=== PATIENT | female | born 1970 | race Caucasian/White ===

== ENCOUNTER 2016-04-04 11:24 | Emergency (ER) | payer BC, OTHER ==
[2016-04-04] MEDS ORDERED: diphenhydrAMINE 50 MG/ML 1 ML VIAL IVP STA (11:34)
[2016-04-04] MEDS ORDERED: ONDANSETRON 4 MG/2 ML VIAL IVP STA (11:34)
--- NOTE | 2016-04-04 11:41 | ED ---
Nausea/Vomiting/Diarrhea HPI - General Chief complaint: Nausea/Vomiting/Diarrhea Stated complaint: vomiting Time Seen by Provider: 04/04/16 11:33 Source: patient, RN notes reviewed Mode of arrival: wheelchair Limitations: no limitations - History of Present Illness Initial comments: 45-year-old female presents emergency Department with chief complaint nausea vomiting diarrhea abdominal pain. Patient states that she has chronic abdominal issues in which she's had multiple scopes diagnosed with gastritis hiatal hernia. Patient states that she started about 5 hours ago with nausea vomiting. She states she's been vomiting so much that she has abdominal pain. Patient states she takes Phenergan and Compazine only when she has issues. She does take Prilosec for gastritis. Patient states that she's never seen a perioperative manager she states that her primary care physician told her that they can handle this. Patient denies dysuria hematuria. Patient denies any chest pain or shortness breath. - Related Data Home Medications Medication Instructions Recorded Confirmed ARIPiprazole [Abilify] 15 mg PO HS 01/20/16 04/04/16 Citalopram Hydrobromide [CeleXA] 40 mg PO HS 01/20/16 04/04/16 Omeprazole [PriLOSEC] 20 mg PO BID 01/20/16 04/04/16 Allergies Allergy/AdvReac Type Severity Reaction Status Date / Time No Known Allergies Allergy Verified 04/04/16 13:01 Review of Systems ROS Statement: Those systems with pertinent positive or pertinent negative responses have been documented in the HPI. ROS Other: All systems not noted in ROS Statement are negative. Past Medical History Additional Past Medical History / Comment(s): GASTRITIS. PT IS ON [facility] FOR THIS. LOW IRON History of Any Multi-Drug Resistant Organisms: None Reported Past Surgical History: No Surgical Hx Reported Past Psychological History: Anxiety, Bipolar Smoking Status: Never smoker Past Alcohol Use History: Rare Past Drug Use History: Marijuana General Exam Limitations: no limitations General appearance: alert, in no apparent distress Head exam: Present: atraumatic, normocephalic, normal inspection Neck exam: Present: normal inspection, full ROM. Absent: tenderness, meningismus, lymphadenopathy Respiratory exam: Present: normal lung sounds bilaterally. Absent: respiratory distress, wheezes, rales, rhonchi, stridor Cardiovascular Exam: Present: regular rate, normal rhythm, normal heart sounds. Absent: systolic murmur, diastolic murmur, rubs, gallop, clicks GI/Abdominal exam: Present: soft, tenderness (Diffuse [id number]), normal bowel sounds. Absent: distended, guarding, rebound, rigid Back exam: Absent: CVA tenderness (R), CVA tenderness (L) Skin exam: Present: warm, dry, intact, normal color. Absent: rash Course Vital Signs 04/04/16 11:29 Pulse Rate 87 Respiratory 16 Rate Blood Pressure 123/78 O2 Sat by Pulse 99 Oximetry - Reevaluation(s) Reevaluation #1: 04/04/16 14:28 I I did personally go in the room multiple times and told patient to stop forcing herself to vomit. Patient's sister in the room states that she has a history of bulimia and states that she, make herself vomit. Patient vomiting has subsided other than when she forces herself to vomit. We are pending IV from [facility] [employer] as multiple attempts have been trying by ER staff. Patient was updated on lab results and that she needs to provide a urine. Reevaluation #2: 04/04/16 16:08 Patient was reevaluated. Patient is resting comfortably and sleeping in the room has had no episodes of vomiting and almost 2 hours. Patient will be discharged. Medical Decision Making - Medical Decision Making 45-year-old female presented emergency from her nausea vomiting. Patient has chronic problems with this. Patient was forcefully making her so sick emergency department. Patient's nausea and vomiting isn't controlled this time. She has Compazine and Phenergan at home. I did offer Zofran though she declined. Patient will be discharged. Patient's abdomen was reevaluated which is soft and nontender. - Lab Data Result diagrams: 04/04/16 12:10 04/04/16 12:10 Lab Results 04/04/16 04/04/16 04/04/16 Range/Units 12:10 12:10 15:47 WBC 18.4 H (3.8-10.6) k/uL RBC 4.58 (3.80-5.40) m/uL Hgb 13.3 (11.4-16.0) gm/dL Hct 42.2 (34.0-46.0) % MCV 92.2 (80.0-100.0) fL MCH 29.1 (25.0-35.0) pg MCHC 31.6 (31.0-37.0) g/dL RDW 14.6 (11.5-15.5) % Plt Count 287 (150-450) k/uL Neutrophils % 89 % Lymphocytes % 5 % Monocytes % 4 % Eosinophils % 1 % Basophils % 0 % Neutrophils # 16.4 H (1.3-7.7) k/uL Lymphocytes # 0.9 L (1.0-4.8) k/uL Monocytes # 0.8 (0-1.0) k/uL Eosinophils # 0.1 (0-0.7) k/uL Basophils # 0.1 (0-0.2) k/uL Sodium 142 (137-145) mmol/L Potassium 3.8 (3.5-5.1) mmol/L Chloride 107 (98-107) mmol/L Carbon Dioxide 19 L (22-30) mmol/L Anion Gap 16 mmol/L BUN 13 (7-17) mg/dL Creatinine 0.59 (0.52-1.04) mg/dL Est GFR (MDRD) Af Amer >60 (>60 ml/min/1.73 sqM) Est GFR (MDRD) Non-Af >60 (>60 ml/min/1.73 sqM) Glucose 190 H (74-99) mg/dL Calcium 9.8 (8.4-10.2) mg/dL Total Bilirubin 0.5 (0.2-1.3) mg/dL AST 24 (14-36) U/L ALT 33 (9-52) U/L Alkaline Phosphatase 48 (38-126) U/L Total Protein 8.0 (6.3-8.2) g/dL Albumin 4.9 (3.5-5.0) g/dL Amylase 62 (30-110) U/L Lipase 165 (23-300) U/L Urine Color Yellow Urine Appearance Cloudy H (Clear) Urine pH 5.5 (5.0-8.0) Ur Specific [place] 1.023 (1.001-1.035) Urine Protein 1+ H (Negative) Urine Glucose (UA) 1+ H (Negative) Urine Ketones Negative (Negative) Urine Blood Large H (Negative) Urine Nitrate Negative (Negative) Urine Bilirubin Negative (Negative) Urine Urobilinogen <2.0 (<2.0) mg/dL Ur Leukocyte Esterase Negative (Negative) Urine RBC 28 H (0-5) /hpf Urine WBC 7 H (0-5) /hpf Ur Squamous Epith Cells 1 (0-4) /hpf Amorphous Sediment Rare H (None) /hpf Hyaline Casts 5 H (0-2) /lpf Urine Mucus Moderate H (None) /hpf Urine Opiates Screen Not Detected (NotDetected) Ur Oxycodone Screen Not Detected (NotDetected) Urine Methadone Screen Not Detected (NotDetected) Ur Propoxyphene Screen Not Detected (NotDetected) Ur Barbiturates Screen Not Detected (NotDetected) U Tricyclic Antidepress Not Detected (NotDetected) Ur Phencyclidine Scrn Not Detected (NotDetected) Ur Amphetamines Screen Not Detected (NotDetected) U Methamphetamines Scrn Not Detected (NotDetected) U Benzodiazepines Scrn Detected H (NotDetected) Urine Cocaine Screen Not Detected (NotDetected) U Marijuana (THC) Screen Detected H (NotDetected) Disposition Clinical Impression: Nausea & vomiting Disposition: HOME SELF-CARE Condition: Stable Instructions: Acute Nausea and Vomiting (ED) Additional Instructions: Please return to the Emergency Department if symptoms worsen or any other concerns. Time of Disposition: 16:09
[2016-04-04] MEDS ORDERED: PROMETHAZINE INJ 25 MG in SODIUM CHLORIDE 0.9% 50 ML IVPB STA (11:45)
[2016-04-04] MEDS ORDERED: ONDANSETRON 4 MG/2 ML VIAL IM STA (12:23)
[2016-04-04] MEDS ORDERED: diphenhydrAMINE 50 MG/ML 1 ML VIAL IM STA (12:23)
[2016-04-04 12:27] LABS: Basophils # (A) 0.1 k/uL (0-0.2); Basophils % (A) 0 %; CH 29.3; CHCM 31.8; Eosinophils # (A) 0.1 k/uL (0-0.7); Eosinophils % (A) 1 %; HCT 42.2 % (34.0-46.0); HDW 2.46; HGB 13.3 gm/dL (11.4-16.0); Luc # (Auto) 0.13; Luc % (Auto) 1; Lymphocytes # (A) 0.9 k/uL (1.0-4.8); Lymphocytes % (A) 5 %; MCH 29.1 pg (25.0-35.0); MCHC 31.6 g/dL (31.0-37.0); MCV 92.2 fL (80.0-100.0); Mean Platelet Volume 7.5; Monocytes # (A) 0.8 k/uL (0-1.0); Monocytes % (A) 4 %; Neutrophils # (A) 16.4 k/uL (1.3-7.7); Neutrophils % (A) 89 %; RBC 4.58 m/uL (3.80-5.40); RDW 14.6 % (11.5-15.5); WBC 18.4 k/uL (3.8-10.6); WBC (Perox) 19.92
[2016-04-04 12:39] LABS: ALT 33 U/L (9-52); AST 24 U/L (14-36); Alkaline Phosphatase 48 U/L (38-126); Amylase 62 U/L (30-110); Anion Gap 16 mmol/L; Blood Urea Nitrogen 13 mg/dL (7-17); Calcium 9.8 mg/dL (8.4-10.2); Carbon Dioxide 19 mmol/L (22-30); Chloride 107 mmol/L (98-107); Glucose 190 mg/dL (74-99); Non-African American GFR(MDRD) >60 (>60 ml/min/1.73 sqM); Potassium 3.8 mmol/L (3.5-5.1); Sodium 142 mmol/L (137-145); Total Bilirubin 0.5 mg/dL (0.2-1.3)
[2016-04-04] MEDS ORDERED: PROMETHAZINE INJ 25 MG/ML 1 ML VIAL IM STA (14:09)
[2016-04-04] MEDS ORDERED: LORazepam 2 MG/ML SYRINGE IM STA (14:09)
[2016-04-04] MEDS: SODIUM CHLORIDE 0.9% 1,000 ML IV STA ×2 (14:11→14:47)
--- NOTE | 2016-04-04 15:34 | XR ---
EXAMINATION TYPE: XR KUB DATE OF EXAM: 04/04/2016 3:22 PM COMPARISON: 01/21/2016 HISTORY: Nausea and vomiting TECHNIQUE: 2 views FINDINGS: Bowel gas pattern is normal. There is no sign of intestinal obstruction or pneumoperitoneum . Fecal pattern is normal. There are a few phleboliths in the pelvis. There are no pathologic calcifi cations over the kidneys. Lung bases are clear. IMPRESSION: Nonacute abdomen. No change.
[2016-04-04 15:53] LABS: Amorphous Sediment,Urine Rare /hpf; Appearance,Urine Cloudy (Clear); Bilirubin,Urine Negative (Negative); Glucose,Urine (UA) 1+ (Negative); Ketones,Urine Negative (Negative); Leukocyte Esterase,Urine Negative (Negative); Mucus,Urine Moderate /hpf; Nitrite,Urine Negative (Negative); PH, Urine 5.5 (5.0-8.0); Particle Count 6976; Protein,Urine 1+ (Negative); RBC,Urine 28 /hpf (0-5); Specific Gravity,Urine 1.023 (1.001-1.035); Squamous Epithelial Cell,Urine 1 /hpf (0-4); UA Billing (MACRO vs. MICRO) MICRO; Urobilinogen,Urine <2.0 mg/dL (<2.0); WBC,Urine 7 /hpf (0-5)
[2016-04-04 16:18] VITALS: BP 129/65; PULSE 98; RESP 18; TEMP 98.5
== END 2016-04-04 16:26 | disposition home or self-care (01) ==
LOC: EC 11:24
DX: R11.2 Nausea with vomiting, unspecified (principal); F31.9 Bipolar disorder, unspecified; F41.9 Anxiety disorder, unspecified; Z79.899 Other long term (current) drug therapy; Z87.19 Personal history of other diseases of the digestive system; Z87.898 Personal history of other specified conditions
CPT/HCPCS: 36415; 80053; 82150; 83690; 85025; 81001; 80306; 74000; 99284; 96360; 96361; 96372 ×4; J2060; J1200; J2550; J2405

== ENCOUNTER 2016-04-06 11:52 | Emergency (ER) | payer BC ==
[2016-04-06 12:18] VITALS: RESP 18
[2016-04-06] MEDS ORDERED: ONDANSETRON 4 MG/2 ML VIAL IVP STA ×2 (13:46→14:56)
[2016-04-06] MEDS ORDERED: SODIUM CHLORIDE 0.9% 1,000 ML IV STA ×2 (13:46)
--- NOTE | 2016-04-06 13:48 | ED ---
General Adult HPI - General Chief complaint: Nausea/Vomiting/Diarrhea Stated complaint: NVD Time Seen by Provider: 04/06/16 13:40 Source: patient, RN notes reviewed, old records reviewed Mode of arrival: EMS Limitations: no limitations - History of Present Illness Initial comments: Patient 45-year-old female who presents emergency room today by EMS, with chief complaint of increased nausea vomiting diarrhea over the last 3 days. Patient does admit that she was seen here in the emergency room for this 2 days ago. She does admit she was discharged home. She states she still having symptoms nausea vomiting. States diarrhea is improved. Does admit that her sister has similar symptoms at home now. Patient admits to some cramping in her abdomen hurts worse with vomiting. She denies any other complaints. Does admit that she is feeling better after medications given by EMS. States she was given morphine along with Zofran. Patient denies any other complaints or symptoms currently. Patient denies any recent fever, chills, shortness of breath, chest pain, back pain, numbness or tingling, dysuria or hematuria, constipation, headaches or visual changes, or any other complaints. - Related Data Home Medications Medication Instructions Recorded Confirmed ARIPiprazole [Abilify] 15 mg PO HS 01/20/16 04/06/16 Citalopram Hydrobromide [CeleXA] 40 mg PO HS 01/20/16 04/06/16 Omeprazole [PriLOSEC] 20 mg PO BID 01/20/16 04/06/16 Previous Rx's Medication Instructions Recorded Ondansetron Odt [Zofran ODT] 4 mg PO Q8HR PRN #15 tab 04/06/16 Allergies Allergy/AdvReac Type Severity Reaction Status Date / Time No Known Allergies Allergy Verified 04/06/16 14:01 Review of Systems ROS Statement: Those systems with pertinent positive or pertinent negative responses have been documented in the HPI. ROS Other: All systems not noted in ROS Statement are negative. Past Medical History Additional Past Medical History / Comment(s): GASTRITIS. PT IS ON [facility] FOR THIS. LOW IRON History of Any Multi-Drug Resistant Organisms: None Reported Past Surgical History: No Surgical Hx Reported Past Psychological History: Anxiety, Bipolar Smoking Status: Never smoker Past Alcohol Use History: Rare Past Drug Use History: Marijuana General Exam - General Exam Comments Initial Comments: General: The patient is awake and alert, in no distress, and does not appear acutely ill. Eye: Pupils are equal, round and reactive to light, extra-ocular movements are intact. No nystagmus. There is normal conjunctiva bilaterally. No signs of icterus. Ears, nose, mouth and throat: There are moist mucous membranes and no oral lesions. Neck: The neck is supple, there is no tenderness or JVD. Cardiovascular: There is a regular rate and rhythm. No murmur, rub or gallop is appreciated. Respiratory: Lungs are clear to auscultation, respirations are non-labored, breath sounds are equal. No wheezes, stridor, rales, or rhonchi. Gastrointestinal: Soft, non-distended, non-tender abdomen without masses or organomegaly noted. There is no rebound or guarding present. No CVA tenderness. Bowel sounds are unremarkable. Musculoskeletal: Normal ROM, no tenderness. Strength 5/5. Sensation intact. Pulses equal bilaterally 2+. Neurological: A&O x 3. CN II-XII intact, There are no obvious motor or sensory deficits. Coordination appears grossly intact. Speech is normal. Skin: Skin is warm and dry and no rashes or lesions are noted. Psychiatric: Cooperative, appropriate mood & affect, normal judgment. Limitations: no limitations Course Vital Signs 04/06/16 12:15 Temperature 97.9 F Pulse Rate 66 Respiratory 18 Rate Blood Pressure 113/57 O2 Sat by Pulse 96 Oximetry - Reevaluation(s) Reevaluation #1: 04/06/16 14:34 Patient reexamined at this time shows no signs of distress. She does admit that she is feeling better after morphine and Zofran were given to her IM by EMS. Patient does admit to a history of drug use. Admits that she was here few days ago. Did have labs obtained at that time. Had an 18,000 white count. Admits to symptoms of nausea vomiting diarrhea. Admits that her sister has some symptoms at home. Patient admits that she does have labs done she states that she was just here because of the nausea and vomiting. Has declined labs. She is difficult lab draw. They were able to obtain an IV access. Patient given IV fluids. Patient's also declined x-ray. States she is feeling better after fluids. symptoms improved here. Advised return if symptoms increase or worsen or for any other concerns. She states understanding and is in agreement. Medical Decision Making - Medical Decision Making Patient reexamined at this time shows no signs of distress. Does not that she is feeling better here in the emergency room. Her abdomen is soft nontender. Patient was seen here in the emergency room recently and labs were reviewed. Patient today is difficult lab draw and declined labs after several attempts. Declined x-ray stating she does had this recently. Doesn't that she's feeling better nausea medicine here. Patient's urinalysis reviewed to show large amount of blood. Was discussed with patient. She states she's not menstrual cycle. Advised patient to follow up with the family doctor have repeat urinalysis. Advised patient return here to the emergency room if any symptoms increase or worsen. Will be discharged home with nausea medication for her symptoms. - Lab Data Lab Results 04/06/16 04/06/16 Range/Units 14:21 14:21 Urine Color Yellow Urine Appearance Cloudy H (Clear) Urine pH 6.0 (5.0-8.0) Ur Specific [place] 1.026 (1.001-1.035) Urine Protein 1+ H (Negative) Urine Glucose (UA) Negative (Negative) Urine Ketones 2+ H (Negative) Urine Blood Large H (Negative) Urine Nitrate Negative (Negative) Urine Bilirubin Negative (Negative) Urine Urobilinogen <2.0 (<2.0) mg/dL Ur Leukocyte Esterase Negative (Negative) Urine RBC >182 H (0-5) /hpf Ur Squamous Epith Cells 12 H (0-4) /hpf Urine Bacteria Rare H (None) /hpf Hyaline Casts 1 (0-2) /lpf Urine Mucus Moderate H (None) /hpf Urine HCG, Qual Not Detected (Not Detectd) Disposition Clinical Impression: Nausea vomiting and diarrhea Disposition: HOME SELF-CARE Instructions: Acute Nausea and Vomiting (ED) Additional Instructions: Please use medication as discussed. Please follow-up with family doctor in the next 2 days of symptoms have not improved. Please return to emergency room if the symptoms increase or worsen or for any other concerns. Prescriptions: Ondansetron Odt [Zofran ODT] 4 mg PO Q8HR PRN #15 tab PRN Reason: Nausea Referrals: None,Stated [Primary Care Provider] - 1-2 days Mina Forrest MD [REFERRING] - 1-2 days Sisi Yanez MD [STAFF PHYSICIAN] - 1-2 days
[2016-04-06 14:44] LABS: Appearance,Urine Cloudy (Clear); Bacteria,Urine Rare /hpf; Bilirubin,Urine Negative (Negative); Glucose,Urine (UA) Negative (Negative); Ketones,Urine 2+ (Negative); Leukocyte Esterase,Urine Negative (Negative); Mucus,Urine Moderate /hpf; Nitrite,Urine Negative (Negative); Particle Count 7676; Protein,Urine 1+ (Negative); RBC,Urine >182 /hpf (0-5); Specific Gravity,Urine 1.026 (1.001-1.035); Squamous Epithelial Cell,Urine 12 /hpf (0-4); UA Billing (MACRO vs. MICRO) MICRO; Urobilinogen,Urine <2.0 mg/dL (<2.0)
[2016-04-06 16:18] VITALS: BP 118/73; PULSE 59; TEMP 99
== END 2016-04-06 16:18 | disposition home or self-care (01) ==
LOC: EC 11:52
DX: R11.2 Nausea with vomiting, unspecified (principal); R19.7 Diarrhea, unspecified; R31.9 Hematuria, unspecified; Z79.899 Other long term (current) drug therapy; F41.8 Other specified anxiety disorders; F31.9 Bipolar disorder, unspecified
CPT/HCPCS: 81001; 81025; 96374; 96376; 96361 ×5; 99285; J2405

== ENCOUNTER 2016-11-26 09:56 | Emergency (ER) | payer BC, OTHER ==
[2016-11-26] MEDS ORDERED: PANTOPRAZOLE 40 MG/10 ML VIAL IVP STA (11:01)
[2016-11-26] MEDS ORDERED: SODIUM CHLORIDE 0.9% 1,000 ML IV STA (11:01)
[2016-11-26] MEDS ORDERED: diphenhydrAMINE 50 MG/ML 1 ML VIAL IM STA (11:02)
--- NOTE | 2016-11-26 11:05 | ED ---
General Adult HPI - General Chief complaint: Nausea/Vomiting/Diarrhea Stated complaint: Vomiting Time Seen by Provider: 11/26/16 10:00 Source: EMS, RN notes reviewed Mode of arrival: EMS Limitations: no limitations - History of Present Illness Initial comments: This is a 46-year-old female presents emergency department with past medical history of IV drug use and gastritis. Patient states she woke up this morning started vomiting and has been unable to stop. Patient states she went to an urgent care they gave her Zofran under the tongue and in the thigh and neither has helped her she continues to vomit. Patient states she has had a little diarrhea as well. Patient states her abdomen is cramping a lot but there is no specific area of tenderness. Patient denies any previous abdominal surgery. Patient is requesting multiple specific medications such as antianxiety medications and Haldol. Patient denies any headache patient denies any chest pain patient denies any difficulty breathing. Denies any fever chills - Related Data Home Medications Medication Instructions Recorded Confirmed ARIPiprazole [Abilify] 15 mg PO HS 01/20/16 04/06/16 Citalopram Hydrobromide [CeleXA] 40 mg PO HS 01/20/16 04/06/16 Omeprazole [PriLOSEC] 20 mg PO BID 01/20/16 04/06/16 Previous Rx's Medication Instructions Recorded Ondansetron Odt [Zofran ODT] 4 mg PO Q8HR PRN #15 tab 04/06/16 Ondansetron Odt [Zofran Odt] 4 mg PO Q8HR PRN #10 tab 11/26/16 Allergies Allergy/AdvReac Type Severity Reaction Status Date / Time No Known Allergies Allergy Verified 04/06/16 14:01 Review of Systems ROS Statement: Those systems with pertinent positive or pertinent negative responses have been documented in the HPI. ROS Other: All systems not noted in ROS Statement are negative. Past Medical History Additional Past Medical History / Comment(s): GASTRITIS. PT IS ON [facility] FOR THIS. LOW IRON History of Any Multi-Drug Resistant Organisms: None Reported Past Surgical History: No Surgical Hx Reported Past Psychological History: Anxiety, Bipolar Smoking Status: Never smoker Past Alcohol Use History: Rare Past Drug Use History: None Reported, Marijuana General Exam - General Exam Comments Initial Comments: GENERAL: Patient is well-developed and well-nourished. Patient is nontoxic and well- hydrated and is in mild distress. ENT: Neck is soft and supple. No significant lymphadenopathy is noted. Oropharynx is clear. Moist mucous membranes. Neck has full range of motion without eliciting any pain. EYES: The sclera were anicteric and conjunctiva were pink and moist. Extraocular movements were intact and pupils were equal round and reactive to light. Eyelids were unremarkable. PULMONARY: Unlabored respirations. Good breath sounds bilaterally. No audible rales rhonchi or wheezing was noted. CARDIOVASCULAR: There is a regular rate and rhythm without any murmurs gallops or rubs. ABDOMEN: Soft and nontender with normal bowel sounds. No palpable organomegaly was noted. There is no palpable pulsatile mass. SKIN: Skin is clear with no lesions or rashes and otherwise unremarkable. NEUROLOGIC: Patient is alert and oriented x3. Cranial nerves II through XII are grossly intact. Motor and sensory are also intact. Normal speech, volume and content. Symmetrical smile. MUSCULOSKELETAL: Normal extremities with adequate strength and full range of motion. No lower extremity swelling or edema. No calf tenderness. LYMPHATICS: No significant lymphadenopathy is noted PSYCHIATRIC: Normal psychiatric evaluation. Normal interpersonal interactions appears functionally intact in deals appropriately with others. No signs of depression. No signs of anxiety. Limitations: no limitations Course Vital Signs 11/26/16 11/26/16 11/26/16 10:01 11:58 12:51 Temperature 98.0 F Pulse Rate 82 82 90 Respiratory 18 18 18 Rate Blood Pressure 125/85 110/62 119/80 O2 Sat by Pulse 99 99 Oximetry Medical Decision Making - Medical Decision Making I will back into the room to reevaluate the patient she was making herself vomit and was at this point time I told her she would be discharged to go home. Patient was continually asking for different medications for which I refused to give her I told her to follow-up with the primary medical care doctor. Soon as I told her she be leaving she was in the emergency department for at least 30 more minutes without vomiting at all. - Lab Data Result diagrams: 11/26/16 11:34 11/26/16 11:34 Lab Results 11/26/16 11/26/16 11/26/16 Range/Units 11:30 11:34 11:34 WBC 12.9 H (3.8-10.6) k/uL RBC 4.31 (3.80-5.40) m/uL Hgb 12.8 (11.4-16.0) gm/dL Hct 39.6 (34.0-46.0) % MCV 91.8 (80.0-100.0) fL MCH 29.6 (25.0-35.0) pg MCHC 32.3 (31.0-37.0) g/dL RDW 15.7 H (11.5-15.5) % Plt Count 342 (150-450) k/uL Neutrophils % 88 % Lymphocytes % 6 % Monocytes % 5 % Eosinophils % 1 % Basophils % 0 % Neutrophils # 11.3 H (1.3-7.7) k/uL Lymphocytes # 0.7 L (1.0-4.8) k/uL Monocytes # 0.6 (0-1.0) k/uL Eosinophils # 0.1 (0-0.7) k/uL Basophils # 0.0 (0-0.2) k/uL Sodium 141 (137-145) mmol/L Potassium 3.9 (3.5-5.1) mmol/L Chloride 107 (98-107) mmol/L Carbon Dioxide 19 L (22-30) mmol/L Anion Gap 15 mmol/L BUN 12 (7-17) mg/dL Creatinine 0.73 (0.52-1.04) mg/dL Est GFR (MDRD) Af Amer >60 (>60 ml/min/1.73 sqM) Est GFR (MDRD) Non-Af >60 (>60 ml/min/1.73 sqM) Glucose 146 H (74-99) mg/dL Calcium 10.1 (8.4-10.2) mg/dL Total Bilirubin 0.4 (0.2-1.3) mg/dL AST 34 (14-36) U/L ALT 34 (9-52) U/L Alkaline Phosphatase 52 (38-126) U/L Total Protein 7.9 (6.3-8.2) g/dL Albumin 4.9 (3.5-5.0) g/dL Amylase 129 H (30-110) U/L Lipase 66 (23-300) U/L Urine Color Yellow Urine Appearance Clear (Clear) Urine pH 8.0 (5.0-8.0) Ur Specific [place] 1.019 (1.001-1.035) Urine Protein 2+ H (Negative) Urine Glucose (UA) Negative (Negative) Urine Ketones 2+ H (Negative) Urine Blood Moderate H (Negative) Urine Nitrite Negative (Negative) Urine Bilirubin Negative (Negative) Urine Urobilinogen <2.0 (<2.0) mg/dL Ur Leukocyte Esterase Negative (Negative) Urine RBC 95 H (0-5) /hpf Urine WBC 4 (0-5) /hpf Ur Squamous Epith Cells <1 (0-4) /hpf Urine Bacteria Occasional H (None) /hpf Urine Mucus Rare H (None) /hpf Urine Opiates Screen Not Detected (NotDetected) Ur Oxycodone Screen Not Detected (NotDetected) Urine Methadone Screen Not Detected (NotDetected) Ur Propoxyphene Screen Not Detected (NotDetected) Ur Barbiturates Screen Not Detected (NotDetected) U Tricyclic Antidepress Not Detected (NotDetected) Ur Phencyclidine Scrn Not Detected (NotDetected) Ur Amphetamines Screen Not Detected (NotDetected) U Methamphetamines Scrn Not Detected (NotDetected) U Benzodiazepines Scrn Not Detected (NotDetected) Urine Cocaine Screen Not Detected (NotDetected) U Marijuana (THC) Screen Detected H (NotDetected) Disposition Clinical Impression: Acute vomiting Disposition: HOME SELF-CARE Condition: Good Instructions: Acute Nausea and Vomiting (ED) Prescriptions: Ondansetron Odt [Zofran Odt] 4 mg PO Q8HR PRN #10 tab PRN Reason: Nausea And Vomiting Referrals: None,Stated [Primary Care Provider] - 1-2 days Time of Disposition: 13:11
[2016-11-26] MEDS ORDERED: PROMETHAZINE INJ 25 MG/ML 1 ML VIAL IM STA (11:08)
[2016-11-26 11:46] LABS: Basophils % (A) 0 %; CH 30.5; CHCM 33.4; Eosinophils # (A) 0.1 k/uL (0-0.7); Eosinophils % (A) 1 %; HCT 39.6 % (34.0-46.0); HDW 2.33; HGB 12.8 gm/dL (11.4-16.0); Luc # (Auto) 0.09; Luc % (Auto) 1; Lymphocytes # (A) 0.7 k/uL (1.0-4.8); Lymphocytes % (A) 6 %; MCH 29.6 pg (25.0-35.0); MCHC 32.3 g/dL (31.0-37.0); MCV 91.8 fL (80.0-100.0); Mean Platelet Volume 7.4; Monocytes # (A) 0.6 k/uL (0-1.0); Monocytes % (A) 5 %; Neutrophils # (A) 11.3 k/uL (1.3-7.7); Neutrophils % (A) 88 %; RBC 4.31 m/uL (3.80-5.40); RDW 15.7 % (11.5-15.5); WBC 12.9 k/uL (3.8-10.6); WBC (Perox) 12.36
[2016-11-26 11:57] LABS: ALT 34 U/L (9-52); AST 34 U/L (14-36); Alkaline Phosphatase 52 U/L (38-126); Amylase 129 U/L (30-110); Anion Gap 15 mmol/L; Blood Urea Nitrogen 12 mg/dL (7-17); Calcium 10.1 mg/dL (8.4-10.2); Carbon Dioxide 19 mmol/L (22-30); Chloride 107 mmol/L (98-107); Glucose 146 mg/dL (74-99); Non-African American GFR(MDRD) >60 (>60 ml/min/1.73 sqM); Potassium 3.9 mmol/L (3.5-5.1); Sodium 141 mmol/L (137-145); Total Bilirubin 0.4 mg/dL (0.2-1.3); Total Protein 7.9 g/dL (6.3-8.2)
[2016-11-26 12:14] LABS: Appearance,Urine Clear (Clear); Bacteria,Urine Occasional /hpf; Bilirubin,Urine Negative (Negative); Glucose,Urine (UA) Negative (Negative); Ketones,Urine 2+ (Negative); Leukocyte Esterase,Urine Negative (Negative); Mucus,Urine Rare /hpf; Nitrite,Urine Negative (Negative); Particle Count 7127; Protein,Urine 2+ (Negative); RBC,Urine 95 /hpf (0-5); Specific Gravity,Urine 1.019 (1.001-1.035); Squamous Epithelial Cell,Urine <1 /hpf (0-4); UA Billing (MACRO vs. MICRO) MICRO; Urobilinogen,Urine <2.0 mg/dL (<2.0); WBC,Urine 4 /hpf (0-5)
[2016-11-26] MEDS ORDERED: METOCLOPRAMIDE 5 MG/ML 2 ML VIAL IVP STA (12:38)
[2016-11-26] MEDS ORDERED: ONDANSETRON 4 MG/2 ML VIAL IVP STA (12:55)
[2016-11-26] MEDS ORDERED: diphenhydrAMINE 50 MG/ML 1 ML VIAL IVP STA (13:09)
[2016-11-26] MEDS ORDERED: LORazepam 2 MG/ML SYRINGE IV STA (13:42)
[2016-11-26 13:48] VITALS: BP 118/78; PULSE 78; RESP 17; TEMP 98.3
== END 2016-11-26 13:52 | disposition home or self-care (01) ==
LOC: EC 09:56
DX: R11.10 Vomiting, unspecified (principal); R19.7 Diarrhea, unspecified; F31.9 Bipolar disorder, unspecified; Z79.899 Other long term (current) drug therapy
CPT/HCPCS: 99284; 96374; 96375 ×4; 96361 ×2; 96372 ×2; 36415; 80053; 82150; 83690; 85025; 81001; 80306; J2060; J1200; J2550; J2765; J2405; C9113

== ENCOUNTER 2016-11-27 01:48 | Emergency (ER) | payer BC ==
[2016-11-27] MEDS ORDERED: METOCLOPRAMIDE 5 MG/ML 2 ML VIAL IVP STA (02:26)
[2016-11-27] MEDS ORDERED: diphenhydrAMINE 50 MG/ML 1 ML VIAL IVP STA (02:26)
[2016-11-27] MEDS ORDERED: SODIUM CHLORIDE 0.9% 1,000 ML IV ONE (02:26)
--- NOTE | 2016-11-27 02:32 | ED ---
Nausea/Vomiting/Diarrhea HPI - General Chief complaint: Nausea/Vomiting/Diarrhea Stated complaint: VOMITING Time Seen by Provider: 11/27/16 01:54 Source: patient Mode of arrival: wheelchair Limitations: no limitations - History of Present Illness Initial comments: 46-year-old female patient presents to emergency department [facility] for evaluation of nausea and vomiting. Patient states that this started around 0500 yesterday morning. Patient states that she started with abdominal cramping , had one episode of diarrhea and then became nauseated and started vomiting. She states that she vomited multiple times and did present here for evaluation. She states that she was diagnosed with gastritis and discharged home with a prescription for Zofran. Patient states that she has taken 2 tablets of the Zofran has not helped her symptoms. Patient states that she does have a past medical history significant for bulimia and gastritis, she states that when she starts vomiting is difficult for her to stop due to the anxieties related to this. She states that she did smoke marijuana in an attempt to calm herself and improve the nausea however this did not help. She denies any further diarrhea. Denies any abdominal pain. She states that she did recently travel to [place] however denies swimming in any lakes, rigors, or ponds, denies eating any new or questionable foods. She denies any sick contacts. Patient denies any recent fever, chills, shortness breath, chest pain, abdominal pain, back pain, numbness, tingling, dizziness, weakness, hematuria, dysuria, urinary urgency, urinary frequency, headache, visual changes, or any other complaints. - Related Data Home Medications Medication Instructions Recorded Confirmed ARIPiprazole [Abilify] 15 mg PO HS 01/20/16 11/27/16 Citalopram Hydrobromide [CeleXA] 40 mg PO HS 01/20/16 11/27/16 Omeprazole [PriLOSEC] 20 mg PO BID 01/20/16 11/27/16 Previous Rx's Medication Instructions Recorded Ondansetron Odt [Zofran ODT] 4 mg PO Q8HR PRN #15 tab 04/06/16 Metoclopramide [Reglan] 10 mg PO Q8H #10 tab 11/27/16 Allergies Allergy/AdvReac Type Severity Reaction Status Date / Time No Known Allergies Allergy Verified 09/22/17 01:52 Review of Systems ROS Statement: Those systems with pertinent positive or pertinent negative responses have been documented in the HPI. ROS Other: All systems not noted in ROS Statement are negative. Past Medical History Additional Past Medical History / Comment(s): GASTRITIS. PT IS ON [facility] FOR THIS. LOW IRON History of Any Multi-Drug Resistant Organisms: None Reported Past Surgical History: No Surgical Hx Reported Past Psychological History: Anxiety, Bipolar Smoking Status: Never smoker Past Alcohol Use History: Rare Past Drug Use History: Marijuana General Exam Limitations: no limitations General appearance: alert, in no apparent distress Eye exam: Present: normal appearance, PERRL, EOMI. Absent: scleral icterus, conjunctival injection, periorbital swelling ENT exam: Present: normal exam, mucous membranes moist Respiratory exam: Present: normal lung sounds bilaterally. Absent: respiratory distress, wheezes, rales, rhonchi, stridor Cardiovascular Exam: Present: regular rate, normal rhythm, normal heart sounds. Absent: systolic murmur, diastolic murmur, rubs, gallop, clicks GI/Abdominal exam: Present: soft, normal bowel sounds. Absent: distended, tenderness, guarding, rebound, rigid Neurological exam: Present: alert, oriented X3, CN II-XII intact Psychiatric exam: Present: normal affect, normal mood Skin exam: Present: warm, dry, intact, normal color. Absent: rash Course Vital Signs 11/27/16 11/27/16 01:50 04:34 Temperature 98.2 F 98.4 F Pulse Rate 85 84 Respiratory 20 16 Rate Blood Pressure 146/96 152/60 O2 Sat by Pulse 99 100 Oximetry Medical Decision Making - Medical Decision Making 46-year-old female patient presented to emergency department [facility] for evaluation of continued nausea and vomiting. Physical exam is unremarkable. Labs reviewed from visit earlier today. Patient was given IV fluids as well as IV Reglan here in the department. Upon reevaluation patient states that she is feeling much better. States that she felt the Reglan worked better than the Zofran. She will be given a prescription for this. She is instructed to start with a clear liquid diet and advance as tolerated. She is instructed to follow- up with her primary care physician for recheck in 1-2 days. She is instructed to return here immediately for any new, worsening, or concerning symptoms. Patient verbalizes understanding and agrees with this plan. Disposition Clinical Impression: Nausea & vomiting Disposition: HOME SELF-CARE Condition: Good Instructions: Acute Nausea and Vomiting (ED) Additional Instructions: Start with a clear liquid diet and advance as tolerated. Follow-up through primary care physician for recheck in 1-2 days. Return here immediately for any new, worsening, or concerning symptoms. Prescriptions: Metoclopramide [Reglan] 10 mg PO Q8H #10 tab Referrals: None,Stated [Primary Care Provider] - 1-2 days Time of Disposition: 04:14
[2016-11-27 04:35] VITALS: BP 152/60; PULSE 84; RESP 16; TEMP 98.4
== END 2016-11-27 04:34 | disposition home or self-care (01) ==
LOC: EC 01:48
DX: R11.2 Nausea with vomiting, unspecified (principal); R19.7 Diarrhea, unspecified; F31.9 Bipolar disorder, unspecified; Z79.899 Other long term (current) drug therapy
CPT/HCPCS: 99284; 96374; 96375; 96361 ×2; J1200; J2765

== ENCOUNTER 2017-04-07 08:12 | Day surgery (SDC) | payer BC ==
[2017-04-05 14:56] VITALS: BMI 26.1
[~2017-04-07 08:12] MED LIST: LACTATED RINGERS 1,000 ML IV SCH
[2017-04-07 09:33] VITALS: RESP 16; TEMP 97.6
[2017-04-07] MEDS ORDERED: LIDOCAINE 1% INJ 10MG/ML (20 ML MDV) ONE (09:59)
[2017-04-07] MEDS ORDERED: PROPOFOL 10 MG/ML 20 ML VIAL IV ONE (09:59)
[2017-04-07] MEDS ORDERED: GLYCOPYRROLATE 0.2 MG/ML 2 ML VIAL ONE (09:59)
--- NOTE | 2017-04-07 10:19 | P.PCN ---
Date of Procedure: 04/07/17 Procedure(s) Performed: Brief history: Patient is a pleasant 46-year-old white female, scheduled for an elective upper endoscopy as well as colonoscopy as a part of evaluation of intermittent episodes of nausea, vomiting, abdominal pain and change in bowel habits for the last several months duration. Procedure performed: Esophagogastroduodenoscopy with biopsy Colonoscopy with biopsy Preoperative diagnosis: Chronic intermittent nausea/vomiting and change in bowel habits Anesthesia: MAC Procedure: After informed consent was obtained from the patient was brought into the endoscopy unit and IV sedation was administered by anesthesia under continuous monitoring. Initially upper endoscopy was done. The Olympus GF 160 video endoscope was inserted inserted into the mouth and esophagus intubated without any difficulty and was gradually advanced into the stomach and duodenum and carefully examined. The bulb and second part of the duodenum appeared normal. The scope was then withdrawn into the stomach adequately insufflated with air and upon careful examination the antrum had mild gastritis and biopsies were done from this area. The body, cardia and fundus appeared normal. The scope was then withdrawn into the esophagus. The GE junction was located at 40 cm to the incisors. It appeared regular with no erythema erosions or ulcerations. Rest of the esophagus appeared normal. Patient tolerated the procedure well. At this time the patient continued to remain sedation. Initial digital rectal examination was normal. Olympus CF 160 video colonoscope was then inserted into the rectum and gradually advanced to the cecum without any difficulty. Careful examination was performed as the scope was gradually being withdrawn. The prep was excellent. The cecum, ascending colon, transverse colon, descending colon, sigmoid colon and rectum appeared noand biopsies were done from ascending and ascending colon to rule out microscopic/collagenous colitis. Retroflexion was performed in the rectum and no lesions were noted. Patient tolerated the procedure well. Impression: 1.Upper endoscopy revealed mild antral gastritis but no evidence of esophagitis , peptic ulcer disease or gastric outlet obstruction 2.Colonoscopy revealed normal-appearing colon from rectum to cecum with no evidence of colitis or colorectal neoplasia. Recommendations: Findings of this examination were discussed with the patient as well ailin family. She was advised to follow with the biopsy results. She will be seen in office in 2 weeks.
[2017-04-07 10:26] LABS: Hypochromasia Marked; Mean Platelet Volume 6.9; Poikilocytosis Slight
[2017-04-07 10:34] LABS: HCT 26.3 % (34.0-46.0); MCH 25.1 pg (25.0-35.0); MCHC 29.7 g/dL (31.0-37.0); Platelet Count 357 k/uL (150-450); RBC 3.12 m/uL (3.80-5.40); RDW 14.7 % (11.5-15.5); WBC 3.7 k/uL (3.8-10.6)
[2017-04-07 10:43] VITALS: BP 112/78; PULSE 75
[2017-04-07 10:46] LABS: HGB 7.8 gm/dL (11.4-16.0); MCV 84.3 fL (80.0-100.0)
[2017-04-07 10:52] LABS: ALT 19 U/L (9-52); AST 20 U/L (14-36); Albumin 3.8 g/dL (3.5-5.0); Alkaline Phosphatase 32 U/L (38-126); Anion Gap 9 mmol/L; Blood Urea Nitrogen 9 mg/dL (7-17); C Reactive Protein <5.0 mg/L (<10.0); Calcium 9.2 mg/dL (8.4-10.2); Carbon Dioxide 24 mmol/L (22-30); Chloride 109 mmol/L (98-107); Glucose 84 mg/dL (74-99); Potassium 4.5 mmol/L (3.5-5.1); Sodium 142 mmol/L (137-145); Total Bilirubin 0.3 mg/dL (0.2-1.3); Total Protein 6.3 g/dL (6.3-8.2)
[2017-04-07 11:50] LABS: Erythrocyte Sedimentation Rate 9 mm/hr (0-20)
[2017-04-07 19:07] LABS: Gliadin AB IgA, Unit <0.2 U/mL
== END 2017-04-07 11:13 | disposition home or self-care (01) ==
LOC: ORWHC2ENDO 08:12
PROVIDERS: ATTEND Internal Medicine Gastroenterology
DX: K21.0 Gastro-esophageal reflux disease with esophagitis (principal); K29.70 Gastritis, unspecified, without bleeding; R19.4 Change in bowel habit; F32.9 Major depressive disorder, single episode, unspecified; F41.9 Anxiety disorder, unspecified; Z79.899 Other long term (current) drug therapy
CPT/HCPCS: 81025; 88305; 80053; 85652; 85027; 86140; 83516 ×4; 45380; 43239; J2001; J2704

== ENCOUNTER → 2017-04-20 | Outpatient (CLI) | payer BC ==
[2017-04-20 14:08] LABS: Anisocytosis Slight; HCT 29.6 % (34.0-46.0); HGB 8.6 gm/dL (11.4-16.0); Hypochromasia Marked; MCH 23.9 pg (25.0-35.0); MCHC 29.1 g/dL (31.0-37.0); MCV 82.1 fL (80.0-100.0); Mean Platelet Volume 7.6; Platelet Count 279 k/uL (150-450); Poikilocytosis Slight; RBC 3.61 m/uL (3.80-5.40); RDW 16.1 % (11.5-15.5); WBC 7.4 k/uL (3.8-10.6)
[2017-04-20 14:24] LABS: T4, Free (Free Thyroxine) 0.76 ng/dL (0.78-2.19)
== END | disposition home or self-care (01) ==
LOC: LABWHC1 13:04
PROVIDERS: ATTEND Obstetrics & Gynecology
DX: N64.52 Nipple discharge (principal); N94.6 Dysmenorrhea, unspecified; N92.4 Excessive bleeding in the premenopausal period
CPT/HCPCS: 36415; 84146; 84439; 84443; 85027

== ENCOUNTER 2017-04-26 17:00 | Observation (INO) | payer BC ==
[2017-04-26] MEDS ORDERED: SODIUM CHLORIDE 0.9% 1,000 ML IV STA ×2 (18:24)
[2017-04-26] MEDS ORDERED: PROMETHAZINE INJ 25 MG in SODIUM CHLORIDE 0.9% 50 ML IVPB STA (18:26)
--- NOTE | 2017-04-26 18:27 | ED ---
Nausea/Vomiting/Diarrhea HPI - General Chief complaint: Nausea/Vomiting/Diarrhea Stated complaint: Vomiting Time Seen by Provider: 04/26/17 18:10 Source: patient, EMS, RN notes reviewed Mode of arrival: EMS Limitations: no limitations - History of Present Illness Initial comments: This is a 47-year-old female history of marijuana abuse a history of multiple visits the emergency department for nausea vomiting with a history of gastritis and bipolar disorder as well as bulimia who presents today with complaints the onset of nausea vomiting last evening that's persistent. She denies any diarrhea she also however states she suicidal with no specific plan. She does states she is tired of all of this. She is still smoking marijuana but she hasn 't use any today she states. She was advised that marijuana can contribute to gastrointestinal issues. MD complaint: nausea, vomiting, other - Related Data Home Medications Medication Instructions Recorded Confirmed ARIPiprazole [Abilify] 15 mg PO HS 01/20/16 04/26/17 Omeprazole [PriLOSEC] 20 mg PO BID 01/20/16 04/26/17 ALPRAZolam [Xanax] 0.25 mg PO BID PRN 02/10/17 04/26/17 Citalopram Hydrobromide [CeleXA] 20 mg PO HS 02/10/17 04/26/17 Promethazine [Phenergan] 25 mg PO BID PRN 02/12/17 04/26/17 Ondansetron Odt [Zofran Odt] 4 mg PO BID PRN 04/26/17 04/26/17 Allergies Allergy/AdvReac Type Severity Reaction Status Date / Time No Known Allergies Allergy Verified 04/26/17 18:59 Review of Systems ROS Statement: Those systems with pertinent positive or pertinent negative responses have been documented in the HPI. ROS Other: All systems not noted in ROS Statement are negative. Past Medical History Past Medical History: GERD/Reflux Additional Past Medical History / Comment(s): HX. GASTRITIS, LOW IRON, intermittent nausea/vomiting-unsure of cause History of Any Multi-Drug Resistant Organisms: None Reported Past Surgical History: No Surgical Hx Reported Additional Past Surgical History / Comment(s): EGD Past Anesthesia/Blood Transfusion Reactions: Postoperative Nausea & Vomiting ( PONV) Additional Past Anesthesia/Blood Transfusion Reaction / Comment(s): was hospitalized after last EGD due to vomiting-not sure if from anesthesia or not Past Psychological History: Anxiety, Bipolar Smoking Status: Never smoker Past Alcohol Use History: None Reported Past Drug Use History: Marijuana - Past Family History Mother Family Medical History: No Reported History General Exam - General Exam Comments Initial Comments: This a well-developed well-nourished awake alert oriented history female Limitations: no limitations General appearance: alert, anxious, in distress Head exam: Present: atraumatic, normocephalic, normal inspection Eye exam: Present: normal appearance, PERRL, EOMI. Absent: scleral icterus, conjunctival injection, periorbital swelling ENT exam: Present: mucous membranes dry Neck exam: Present: normal inspection. Absent: tenderness, meningismus, lymphadenopathy Respiratory exam: Present: normal lung sounds bilaterally. Absent: respiratory distress, wheezes, rales, rhonchi, stridor Cardiovascular Exam: Present: regular rate, normal rhythm, normal heart sounds. Absent: systolic murmur, diastolic murmur, rubs, gallop, clicks GI/Abdominal exam: Present: soft, normal bowel sounds, bruit, pulsatile mass, hernia. Absent: distended, tenderness, guarding, rebound, rigid Extremities exam: Present: normal inspection, full ROM, normal capillary refill. Absent: tenderness, pedal edema, joint swelling, calf tenderness Back exam: Present: normal inspection Neurological exam: Present: alert, oriented X3, CN II-XII intact Psychiatric exam: Present: depressed, flat affect, suicidal ideation Skin exam: Present: warm, dry, intact, normal color. Absent: rash Course Vital Signs 04/26/17 04/26/17 17:38 20:35 Temperature 99.1 F Pulse Rate 77 79 Respiratory 18 20 Rate Blood Pressure 161/86 132/82 O2 Sat by Pulse 99 100 Oximetry Medical Decision Making - Medical Decision Making Patient is still having intractable vomiting demonstrates anemia which appears to now be chronic she is suicidal she'll be admitted for medical treatment and inpatient psychiatric consultation - Lab Data Result diagrams: 04/26/17 20:27 04/26/17 20:27 Lab Results 04/26/17 04/26/17 04/26/17 Range/Units 19:30 19:30 20:27 WBC 9.2 (3.8-10.6) k/uL RBC 3.69 L (3.80-5.40) m/uL Hgb 8.7 L (11.4-16.0) gm/dL Hct 29.3 L (34.0-46.0) % MCV 79.5 L (80.0-100.0) fL MCH 23.7 L (25.0-35.0) pg MCHC 29.8 L (31.0-37.0) g/dL RDW 16.1 H (11.5-15.5) % Plt Count 365 (150-450) k/uL Neutrophils % 91 % Lymphocytes % 4 % Monocytes % 3 % Eosinophils % 1 % Basophils % 0 % Neutrophils # 8.4 H (1.3-7.7) k/uL Lymphocytes # 0.3 L (1.0-4.8) k/uL Monocytes # 0.3 (0-1.0) k/uL Eosinophils # 0.1 (0-0.7) k/uL Basophils # 0.0 (0-0.2) k/uL Hypochromasia Marked Poikilocytosis Slight Anisocytosis Slight Sodium (137-145) mmol/L Potassium (3.5-5.1) mmol/L Chloride (98-107) mmol/L Carbon Dioxide (22-30) mmol/L Anion Gap mmol/L BUN (7-17) mg/dL Creatinine (0.52-1.04) mg/dL Est GFR (MDRD) Af Amer (>60 ml/min/1.73 sqM) Est GFR (MDRD) Non-Af (>60 ml/min/1.73 sqM) Glucose (74-99) mg/dL Calcium (8.4-10.2) mg/dL Total Bilirubin (0.2-1.3) mg/dL AST (14-36) U/L ALT (9-52) U/L Alkaline Phosphatase (38-126) U/L Total Protein (6.3-8.2) g/dL Albumin (3.5-5.0) g/dL Amylase (30-110) U/L Lipase (23-300) U/L Urine Color Yellow Urine Appearance Cloudy H (Clear) Urine pH 6.0 (5.0-8.0) Ur Specific [place] 1.031 (1.001-1.035) Urine Protein 3+ H (Negative) Urine Glucose (UA) 1+ H (Negative) Urine Ketones 3+ H (Negative) Urine Blood Moderate H (Negative) Urine Nitrite Negative (Negative) Urine Bilirubin Negative (Negative) Urine Urobilinogen <2.0 (<2.0) mg/dL Ur Leukocyte Esterase Negative (Negative) Urine RBC 69 H (0-5) /hpf Urine WBC 4 (0-5) /hpf Ur Squamous Epith Cells 7 H (0-4) /hpf Amorphous Sediment Rare H (None) /hpf Urine Mucus Moderate H (None) /hpf Urine HCG, Qual Not Detected (Not Detectd) Urine Opiates Screen Not Detected (NotDetected) Ur Oxycodone Screen Not Detected (NotDetected) Urine Methadone Screen Not Detected (NotDetected) Ur Propoxyphene Screen Not Detected (NotDetected) Ur Barbiturates Screen Not Detected (NotDetected) U Tricyclic Antidepress Not Detected (NotDetected) Ur Phencyclidine Scrn Not Detected (NotDetected) Ur Amphetamines Screen Not Detected (NotDetected) U Methamphetamines Scrn Not Detected (NotDetected) U Benzodiazepines Scrn Detected H (NotDetected) Urine Cocaine Screen Not Detected (NotDetected) U Marijuana (THC) Screen Detected H (NotDetected) Serum Alcohol mg/dL 04/26/17 Range/Units 20:27 WBC (3.8-10.6) k/uL RBC (3.80-5.40) m/uL Hgb (11.4-16.0) gm/dL Hct (34.0-46.0) % MCV (80.0-100.0) fL MCH (25.0-35.0) pg MCHC (31.0-37.0) g/dL RDW (11.5-15.5) % Plt Count (150-450) k/uL Neutrophils % % Lymphocytes % % Monocytes % % Eosinophils % % Basophils % % Neutrophils # (1.3-7.7) k/uL Lymphocytes # (1.0-4.8) k/uL Monocytes # (0-1.0) k/uL Eosinophils # (0-0.7) k/uL Basophils # (0-0.2) k/uL Hypochromasia Poikilocytosis Anisocytosis Sodium 141 (137-145) mmol/L Potassium 3.9 (3.5-5.1) mmol/L Chloride 106 (98-107) mmol/L Carbon Dioxide 20 L (22-30) mmol/L Anion Gap 15 mmol/L BUN 11 (7-17) mg/dL Creatinine 0.60 (0.52-1.04) mg/dL Est GFR (MDRD) Af Amer >60 (>60 ml/min/1.73 sqM) Est GFR (MDRD) Non-Af >60 (>60 ml/min/1.73 sqM) Glucose 126 H (74-99) mg/dL Calcium 9.6 (8.4-10.2) mg/dL Total Bilirubin 0.4 (0.2-1.3) mg/dL AST 24 (14-36) U/L ALT 23 (9-52) U/L Alkaline Phosphatase 39 (38-126) U/L Total Protein 8.2 (6.3-8.2) g/dL Albumin 5.0 (3.5-5.0) g/dL Amylase 87 (30-110) U/L Lipase 56 (23-300) U/L Urine Color Urine Appearance (Clear) Urine pH (5.0-8.0) Ur Specific [place] (1.001-1.035) Urine Protein (Negative) Urine Glucose (UA) (Negative) Urine Ketones (Negative) Urine Blood (Negative) Urine Nitrite (Negative) Urine Bilirubin (Negative) Urine Urobilinogen (<2.0) mg/dL Ur Leukocyte Esterase (Negative) Urine RBC (0-5) /hpf Urine WBC (0-5) /hpf Ur Squamous Epith Cells (0-4) /hpf Amorphous Sediment (None) /hpf Urine Mucus (None) /hpf Urine HCG, Qual (Not Detectd) Urine Opiates Screen (NotDetected) Ur Oxycodone Screen (NotDetected) Urine Methadone Screen (NotDetected) Ur Propoxyphene Screen (NotDetected) Ur Barbiturates Screen (NotDetected) U Tricyclic Antidepress (NotDetected) Ur Phencyclidine Scrn (NotDetected) Ur Amphetamines Screen (NotDetected) U Methamphetamines Scrn (NotDetected) U Benzodiazepines Scrn (NotDetected) Urine Cocaine Screen (NotDetected) U Marijuana (THC) Screen (NotDetected) Serum Alcohol <10 mg/dL - Radiology Data Radiology results: report reviewed (I did review the imaging and report no acute findings.), image reviewed Disposition Clinical Impression: Intractable vomiting with nausea, Anemia, Depression, Suicidal ideation Disposition: ADMITTED IP TO THIS [facility] Condition: Stable Referrals: Oren Darden DO [Primary Care Provider] - 1-2 days
[2017-04-26] MEDS ORDERED: diphenhydrAMINE 50 MG/ML 1 ML VIAL IM STA (18:56)
[2017-04-26] MEDS ORDERED: PROMETHAZINE INJ 25 MG/ML 1 ML VIAL IM STA (18:57)
[2017-04-26 19:45] LABS: Amorphous Sediment,Urine Rare /hpf; Appearance,Urine Cloudy (Clear); Bilirubin,Urine Negative (Negative); Blood,Urine Moderate (Negative); Color,Urine Yellow; Glucose,Urine (UA) 1+ (Negative); Leukocyte Esterase,Urine Negative (Negative); Mucus,Urine Moderate /hpf; Nitrite,Urine Negative (Negative); Protein,Urine 3+ (Negative); RBC,Urine 69 /hpf (0-5); Specific Gravity,Urine 1.031 (1.001-1.035); Squamous Epithelial Cell,Urine 7 /hpf (0-4); Urobilinogen,Urine <2.0 mg/dL (<2.0); WBC,Urine 4 /hpf (0-5)
[2017-04-26 19:48] LABS: Amphetamine Screen,Urine Not Detected (NotDetected); Barbiturate Screen,Urine Not Detected (NotDetected); Benzodiazepines Screen,Urine Detected (NotDetected); Cocaine Screen,Urine Not Detected (NotDetected); Methadone Screen, Urine Not Detected (NotDetected); Opiate Screen,Urine Not Detected (NotDetected); Oxycodone Screen, Urine Not Detected (NotDetected); Phencyclidine Screen,Urine Not Detected (NotDetected); Tricyclic Antidepressant,Urine Not Detected (NotDetected); Urn Cannabinoid Scrn Detected (NotDetected)
--- NOTE | 2017-04-26 20:10 | XR ---
EXAMINATION TYPE: XR KUB DATE OF EXAM: 04/26/2017 COMPARISON: 02/14/2017 HISTORY: Vomiting TECHNIQUE: 2 views FINDINGS: There is no sign of intestinal obstruction or pneumoperitoneum. Fecal pattern is normal. Th ere are no pathologic calcifications over the kidneys. There are numerous phleboliths in the pelvis. Lung bases are clear. IMPRESSION: Acute abdomen. No change.
[2017-04-26 20:26] LABS: Ketones,Urine 3+ (Negative)
[2017-04-26 20:36] LABS: Anisocytosis Slight; Basophils % (A) 0 %; Eosinophils # (A) 0.1 k/uL (0-0.7); Eosinophils % (A) 1 %; HCT 29.3 % (34.0-46.0); HGB 8.7 gm/dL (11.4-16.0); Hypochromasia Marked; Lymphocytes # (A) 0.3 k/uL (1.0-4.8); Lymphocytes % (A) 4 %; MCH 23.7 pg (25.0-35.0); MCHC 29.8 g/dL (31.0-37.0); MCV 79.5 fL (80.0-100.0); Mean Platelet Volume 6.8; Monocytes # (A) 0.3 k/uL (0-1.0); Monocytes % (A) 3 %; Neutrophils # (A) 8.4 k/uL (1.3-7.7); Neutrophils % (A) 91 %; Platelet Count 365 k/uL (150-450); Poikilocytosis Slight; RBC 3.69 m/uL (3.80-5.40); RDW 16.1 % (11.5-15.5); WBC 9.2 k/uL (3.8-10.6)
[2017-04-26 20:50] LABS: ALT 23 U/L (9-52); AST 24 U/L (14-36); Alcohol <10 mg/dL; Alkaline Phosphatase 39 U/L (38-126); Amylase 87 U/L (30-110); Anion Gap 15 mmol/L; Blood Urea Nitrogen 11 mg/dL (7-17); Calcium 9.6 mg/dL (8.4-10.2); Carbon Dioxide 20 mmol/L (22-30); Chloride 106 mmol/L (98-107); Glucose 126 mg/dL (74-99); Lipase 56 U/L (23-300); Potassium 3.9 mmol/L (3.5-5.1); Sodium 141 mmol/L (137-145); Total Bilirubin 0.4 mg/dL (0.2-1.3); Total Protein 8.2 g/dL (6.3-8.2)
[2017-04-26] MEDS ORDERED: ONDANSETRON 4 MG/2 ML VIAL IVP PRN (21:36)
[2017-04-26] MEDS ORDERED: NALOXONE 0.4 MG/ML 1 ML VIAL IV PRN (21:36)
[2017-04-26] MEDS ORDERED: ZIPRASIDONE 20 MG VIAL IM STA (21:39)
[2017-04-26] MEDS ORDERED: LORazepam 2 MG/ML INJ IM STA (21:39)
[2017-04-26] MEDS: SODIUM CHLORIDE 0.9% 1,000 ML IV SCH (22:08)
[2017-04-26] MEDS ORDERED: ACETAMINOPHEN TAB 325 MG TAB PO STA (22:15)
[2017-04-26] MEDS ORDERED: IBUPROFEN 600 MG TAB PO STA (22:15)
[2017-04-26 23:02] VITALS: BMI 24.2
[2017-04-26] MEDS ORDERED: PROMETHAZINE 25 MG TAB PO PRN (23:44)
--- NOTE | 2017-04-27 00:15 | XR ---
EXAMINATION TYPE: XR chest 1V portable DATE OF EXAM: 04/26/2017 COMPARISON: 02/10/2017 HISTORY: Pneumonia and cough TECHNIQUE: Single frontal view of the chest is obtained. FINDINGS: There is no heart failure nor confluent pneumonic infiltrate. Costophrenic angles are bernardo r. Mediastinum is normal. Bony thorax appears intact. IMPRESSION: No active cardiopulmonary disease. There is clearing of focal atelectasis in the right m idlung compared to old exam.
[2017-04-27] MEDS: ALPRAZolam 0.25 MG TAB PO PRN ×2 (04:55→14:32)
--- NOTE | 2017-04-27 05:05 | HP ---
HISTORY AND PHYSICAL DATE OF SERVICE: 04/26/2017 CHIEF COMPLAINT: Nausea and vomiting. HISTORY OF PRESENT ILLNESS: This 47-year-old woman with a past medical history of multiple medical problems including history of GERD, history of low iron, history of anxiety, bipolar depression, panic disorder was admitted with incessant vomiting. Patient unable to keep anything down. This vomiting episodes going on for the last 3 years according to the patient. Patient apparently had bulimia also. The patient also had suicidal ideations and the patient did not have any specific plan. Patient admitted for further evaluation and treatment. There is no history of fever, rigors or chills. No history of headache, loss of conscious or seizures. PAST MEDICAL HISTORY: History of GERD, gastritis, history of anxiety, bipolar depression, panic disorder. MEDICATIONS: Home medication: 1. Prilosec 20 mg p.o. b.i.d. 2. Xanax 0.2 b.i.d. p.r.n. 3. Phenergan 25 mg b.i.d. p.r.n. 4. Zofran 4 mg b.i.d. p.r.n. 5. Celexa 20 mg p.o. q.h.s. 6. Abilify 50 mg q.h.s. ALLERGIES: None. FAMILY HISTORY: No history of heart disease or strokes family. SOCIAL HISTORY: No history of smoking. Daily THC according to her. The patient grows her own THC. REVIEW OF SYSTEMS: ENT: No diminished hearing or diminished vision. CARDIOVASCULAR: No angina or palpitations. Respiratory: no cough. GI as mentioned earlier. : No dysuria. NERVOUS SYSTEM: No numbness or weakness. ALLERGY/IMMUNOLOGY: As mentioned earlier. HEMATOLOGY/ONCOLOGY: No history of anemia. ENDOCRINE: No history of diabetes or hypothyroidism. Constitutional: As mentioned earlier. Dermatology: Negative. Rheumatology: Negative. Psychiatric: As mentioned earlier. PHYSICAL EXAMINATION: The patient is alert and oriented times three. Pulse is 86, blood pressure 130/70, respiration 18, temperature 100.9, pulse ox 100% on room air. HEENT: Conjunctivae normal. Neck: No jugular venous distention. Cardiovascular: S1, S2 muffled. Respiration: Breath sounds diminished in the bases. A few scattered rhonchi. No crackles. ABDOMEN: Soft, nontender. No mass palpable. Legs: No edema and no swelling. NERVOUS SYSTEM: Higher functions as mentioned earlier. Moves all four limbs. No focal deficits. Lymphatics: No lymph nodes palpable in the neck, axillae or groin. Skin: No ulcer, rashes or bleeding. LABS: WBC 9.2, hemoglobin is 8.7. Glucose 136. ASSESSMENT: 1. Incessant vomiting, nausea, gastritis. 2. Depression with suicidal ideations. 3. Fever for possible upper respiratory infection. 4. Anemia, microcytic of chronic nature. 5. Positive THC. 6. History of gastroesophageal reflux disease. 7. History of gastritis. 8. History of anxiety, bipolar depression, panic disorder. 9. Remote history of heroin abuse. RECOMMENDATION AND DISCUSSION: Recommend to continue current medication, continue symptomatic treatment. Otherwise at this time I would recommend to continue the current medications. I would recommend a portable chest x-ray to rule out the possibility of pneumonia. Otherwise, psychiatric consultation. We will continue to monitor. I would also recommend influenza swab also. The prognosis is guarded because of multiple complex medical issues. Further recommendations to follow. I would recommend resume the home medications as well. IV Protonix is suggested also. Once again the prognosis guarded because of multiple complex medical issues. Further recommendations to follow. Copy of dictation being forwarded to Dr. Darden who is the primary physician. TOSHA / ELVIE: [id number] /
[2017-04-27] MEDS: SODIUM CHLORIDE 0.9% 1,000 ML IV SCH ×2 (08:51→18:51)
[2017-04-27] MEDS ORDERED: PANTOPRAZOLE 40 MG/10 ML VIAL IVP SCH (09:00)
[2017-04-27 12:05] LABS: Glucose 109 mg/dL (74-99)
[2017-04-27 12:06] LABS: ALT 19 U/L (9-52); AST 25 U/L (14-36); Albumin 4.1 g/dL (3.5-5.0); Alkaline Phosphatase 27 U/L (38-126); Anion Gap 11 mmol/L; Blood Urea Nitrogen 13 mg/dL (7-17); Calcium 8.9 mg/dL (8.4-10.2); Carbon Dioxide 21 mmol/L (22-30); Chloride 109 mmol/L (98-107); Potassium 3.8 mmol/L (3.5-5.1); Sodium 141 mmol/L (137-145); Total Bilirubin 0.4 mg/dL (0.2-1.3); Total Protein 6.8 g/dL (6.3-8.2)
[2017-04-27 13:00] LABS: Anisocytosis Slight; Basophils % (A) 0 %; Eosinophils % (A) 0 %; HCT 28.1 % (34.0-46.0); HGB 8.4 gm/dL (11.4-16.0); Hypochromasia Marked; Lymphocytes # (A) 0.8 k/uL (1.0-4.8); Lymphocytes % (A) 6 %; MCH 23.5 pg (25.0-35.0); MCHC 29.8 g/dL (31.0-37.0); MCV 78.8 fL (80.0-100.0); Mean Platelet Volume 6.6; Microcytosis Slight; Monocytes # (A) 0.8 k/uL (0-1.0); Monocytes % (A) 6 %; Neutrophils # (A) 10.9 k/uL (1.3-7.7); Neutrophils % (A) 86 %; Platelet Count 371 k/uL (150-450); Poikilocytosis Slight; RBC 3.57 m/uL (3.80-5.40); RDW 16.3 % (11.5-15.5); WBC 12.7 k/uL (3.8-10.6)
[2017-04-27 15:30] VITALS: BP 158/81; PULSE 68; RESP 18; TEMP 98.7
--- NOTE | 2017-04-27 16:30 | PN ---
PROGRESS NOTE DATE OF SERVICE: 04/27/2017 This 47-year-old woman who was admitted with nausea and vomiting also had depression with suicidal ideation. No chest pain. No palpitations. No fever. The chest x-ray showed clearing of the focal atelectasis in the right lung. Continued fever is noted. On exam, alert and oriented x3. Pulse 76, blood pressure 141/70, respiration 16, temperature 100.2, pulse ox 97% on room air. HEENT: Conjunctivae normal. NECK: No jugular venous distention. CARDIOVASCULAR SYSTEM: S1, S2 muffled. RESPIRATORY SYSTEM: Breath sounds diminished at the bases. A few rhonchi. No crackles. ABDOMEN: Soft, nontender. No mass palpable. LEGS: No edema. No swelling. NERVOUS SYSTEM: Higher functions as mentioned earlier. Moves all 4 limbs. No focal motor or sensory deficit. LYMPHATICS: No lymph node palpable in neck, axillae or groin. SKIN: No ulcer, rash, bleeding. LABS: WBC 12.6, hemoglobin 8.4. ASSESSMENT: 1. Incessant vomiting, nausea; acute gastritis. 2. Depression with suicidal ideation. 3. Continued fever; possible short febrile illness. 4. Anemia, macrocytic, chronic in nature. 5. History of positive tetrahydrocannabinol. 6. History of gastroesophageal reflux disease. 7. History of gastritis. 8. History of anxiety, bipolar depression, panic disorder. 9. Remote history of heroin abuse. RECOMMENDATIONS AND DISCUSSION: I recommend to continue current medication, continue with symptomatic treatment. I would recommend a set of new cultures and also a 2D echo with Doppler. Continue the rest of medications. Also recommend infectious disease evaluation. Guarded prognosis. Further recommendations to follow. MMODL / IJN: [id number] /
--- NOTE | 2017-04-27 18:01 | P.CN ---
Psychiatric Consult - . Consult date: 04/27/17 Consult:: 04/27/17 17:47 Identification: Patient is a 47-year-old female who came to the emergency room complaining of nausea and vomiting and felt she had a fever and she expressed suicidal ideation without a plan. Reason for Consult: Suicidal ideation History of Present Illness: Patient's chart was reviewed, the patient was seen in her room and no family members were present. Patient states that she has been having difficulty with nausea and vomiting which increases her anxiety and at times she feels like her skin is crawling and her stomach is upset. She states that when she gets sick her anxiety increases and then the nausea and vomiting persist. Patient states she was in the emergency room numerous occasions in February with similar complaints without any relief. Patient can give me no specific precipitant to her increase in anxiety stating that she was placed on Xanax by her primary care physician in February due to her complaints of increasing anxiety. She states that she has been using it several times a week and was initially using it on a regular basis, Xanax 0.25 mg twice a day but felt that it was not beneficial. Patient has been on Abilify 15 mg at bedtime and Celexa 20 mg at bedtime for the last 3-4 years. She states these were initially begun 5-6 years ago when she was being seen at [facility] in [place]. She states at that time she was diagnosed as bipolar type II and was placed on Lamictal and Lexapro which were not beneficial and switch to these medications. She states these medications have been beneficial to her. She states with the increase in her nausea and vomiting she has been feeling more anxious and depressed. She states when she is depressed her stomach is not it up and she stays in bed. She states that she does care for her ADLs and had a prior suicide attempt back in her 20s where she overdosed. She states she has had suicidal ideation in the past but has never had any plan and has no intent to act. She describes hypomanic episodes but she states she has not had one for some time and does not endorse any manic symptoms. Patient does not endorse any psychotic symptomatology. She does endorse periods of depression where she stays in bed, her sleep is disrupted and she feels tired. She states that she is able to care for herself during these times. She states she has been increasingly anxious because the nausea and vomiting will not stop. Patient states that she is also had difficulties with bulimia since the age of 18 and has never received treatment. She states that she will get sick out of nowhere and states that she is eating and not binging but did binge in the past. She denies self-induced vomiting. She states that she has not had any bulimic symptoms for some time. She states she presented to the emergency room in February for vomiting, but this was not self-induced. Past Psychiatric History: Patient denies any inpatient treatment and states that she was seen at [facility] in [place] 5-6 years ago and placed on medication there for the first time for bipolar type II disorder. She has been on Lamictal and Lexapro in the past and is currently taking Abilify 15 mg at bedtime, Celexa 20 mg at bedtime and Xanax 0.25 mg twice a day on an as-needed basis these a been prescribed by her primary care physician. Past Medical/Surgical History: Patient has a history of GERD, and she states she has anemia currently. Patient denies any surgical history. Family History: Patient denies any family history of psychiatric disorders and states that a maternal uncle and brother both abused alcohol. Social History: Patient was born in [place] and raised in [place] both of her parents are alive and she has 3 siblings. Patient completed high school and went on to get a degree any a college and has a BS in zoology. She states that she is worked on and off in the past. 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 She states that she lives alone and was in the past and is her about 2 years ago. She has no children. She states she moved to the [facility] 1-1/2 years ago. Substance Use History: Patient states that she has used alcohol socially in the past but has not used any recently. She states she has medical marijuana card and uses it for cramps 2-3 times a month. She states in the past she did have an IV drug his problem and used heroin that was over 15 years ago. Patient denied any other drug use history however her UDS in February was positive for cocaine. She denies any tobacco use currently Legal History: Patient denies any Mental status: Appearance/Attitude: Patient is lying in a hospital bed, frequently moaning and lying down, she was cooperative Behavior: Patient does not display any psychomotor retardation but states that she is anxious and his moaning and holding her stomach Speech/Language: Patient's speech was spontaneous, normal volume and rhythm and she was coherent Thought Process: Patient was goal-directed, there is no evidence of loose associations or flight of ideas. Patient does state she ruminates about how she is feeling and wonders what will occur regarding her nausea and vomiting Thought Content: Patient denies auditory or visual hallucinations and no paranoid or delusional ideation was elicited. The patient states that she is anxious and depressed because of the nausea and vomiting and doesn't understand why she continues to be sick. She states that her anxiety makes her feel like her skin is crawling and her stomach is upset. Suicidal/Homicidal Ideation: Patient denies any current suicidal ideation stating that she has suicidal thoughts on and off and did express them in the emergency room but has no plan or intent to act. Patient denies any current homicidal ideation Sensorium/Cognition: Patient is alert and oriented to person, place, and time and her recent and remote memory are grossly intact. Mood/Affect: Patient's mood is anxious and irritable and her affect is appropriate to her mood Insight/Judgment: Patient's insight and judgment are intact Assessment: Patient is presented to the emergency room on 5 visits in February and now presents again with complaints of nausea and vomiting. She also reports her anxiety is increased and was begun on Xanax as an outpatient with she states little benefit. Patient is also been treated for bipolar type II disorder in the past and is able to endorse a history of depressive episodes and hypomanic episodes in the past. She has been on her current medications for the last 4 years she states with good results until most recently. Patient also has a history of bulimia which she states is not been an issue recently and she denies binging behavior and denies any purging behavior, although the nurse states that she saw the patient stick her fingers in her mouth and when confronted with this behavior the patient told me that she did that because she had had something that upset her stomach. Patient told me that she has had suicidal ideation and did voice this in the emergency room but stated that she is not currently suicidal and has no plan or intent to act. Patient initially wanted to come to the inpatient psychiatric unit to have her medications adjusted but then decided that she would be better off returning home. Patient is not expressing any psychotic symptomatology and there is no evidence of any manic behavior and she is denying any current suicidal ideation or homicidal ideation. Diagnosis: Bipolar type II disorder by history, bulimia by history Plan: Patient should continue on her Abilify 15 mg at bedtime, Celexa 20 mg at bedtime and Xanax 0.25 mg twice a day when necessary and I discussed with her that she should be seen by an outpatient psychiatrist to have her medications better adjusted to treat her anxiety and depression. Patient was agreeable to this and will be given referrals to make an appointment for as an outpatient. Patient declined inpatient admission and she is not voicing any current suicidal ideation and states that she has no plans or intent to act. Patient is not psychotic nor is she having any current homicidal ideation and does not meet criteria for an involuntary commitment. Patient will be seen by the EPS nurse and given outpatient referrals. 04/27/17 17:48 04/27/17 17:53 04/27/17 17:53 04/27/17 18:01
[2017-04-27] MEDS ORDERED: ARIPiprazole 15 MG TAB PO SCH (21:00)
[2017-04-27] MEDS ORDERED: CITALOPRAM HYDROBROMIDE 20 MG TAB PO SCH (21:00)
--- NOTE | 2017-04-28 00:03 | CONS ---
CONSULTATION DATE OF SERVICE: 04/27/2017 REASON FOR CONSULTATION: Fever. HISTORY OF PRESENT ILLNESS: The patient is a 47-year-old female who presented to the ER at [facility] last night with the chief complaints of nausea and vomiting. Her symptoms have been going on since the evening before she presented to the hospital. She had multiple episodes of vomiting, with no blood in the vomit. The patient is unable to keep anything down. She has been complaining of pain mostly in the epigastric area for the same duration of one day. Pain has been sharp and at times burning, 4 to 5 out of 10, and no radiation. The patient denies having any diarrhea; has had no bowel movement. The patient did mention that she did recently have an EGD done by Dr. Hernandez, and she was told she has gastritis. With these symptoms, the patient was evaluated by the ER physician. The patient did have a KUB which was reported to be negative. Patient was afebrile on presentation and subsequently did spike a fever of 100.9, was 100.2 this morning, for which the patient had further workup. The patient did have influenza serology which came back negative. Urine was positive for benzodiazepines and marijuana. UA was not significantly positive. It did show some hematuria. Liver enzymes are normal. White count was 9.2 on admission and is slightly up to 12.7 today. ID was consulted for further recommendations. The patient was seen on hospital rounds around 4:30 this afternoon. The patient apparently has been upset and yelling at the nursing staff and there has to be a security present at the bedside for her protection. REVIEW OF SYSTEMS: CONSTITUTIONAL: Positive for weakness; however, denies any high-grade fever. Low -grade fever reported on the chart. EYES: No complaint. ENT: No complaint. RESPIRATORY: No complaint. CARDIOVASCULAR: No complaint. GENITOURINARY: No complaint. GASTROINTESTINAL: As per HPI. MUSCULOSKELETAL: No complaint. INTEGUMENTARY: No complaint. PSYCHOLOGICAL: No complaint. ENDOCRINE: No complaint. NEUROLOGICAL: No complaint. PAST MEDICAL HISTORY: 1. Gastritis. 2. Reflux. 3. Intermittent nausea and vomiting. 4. Bulimia. PAST SURGICAL HISTORY: EGD. PAST PSYCHOLOGICAL HISTORY: Anxiety and bipolar. SOCIAL HISTORY: Denies smoking or drinking. Did admit to marijuana use. FAMILY HISTORY: No pertinent findings noticed. ALLERGIES: NO KNOWN DRUG ALLERGIES. CURRENT MEDICATIONS: 1. Xanax. 2. Abilify. 3. Celexa. 4. Narcan. 5. Zofran. 6. Protonix. 7. Phenergan. 8. IV fluid. PHYSICAL EXAMINATION: Blood pressure is 158/81 with a pulse of 68, temperature 98.7, T-max 100.9. She is 99% on room air. General description is a middle-aged female lying in bed in no distress. No tachypnea or accessory muscle of respiration use. HEENT examination shows pallor. There is no scleral icterus. Oral mucosa membrane is moist. No pharyngeal erythema or thrush. NECK: Trachea is central. No thyromegaly. LUNGS: Unlabored breathing. Clear to auscultation anteriorly. No wheeze or crackle. HEART: S1, S2. Regular rate and rhythm. ABDOMEN: Soft. No guarding or rigidity. Minimal tenderness in the epigastric area. No organomegaly. EXTREMITIES: No edema of feet. SKIN EXAMINATION: No rash or mass palpable. Neurologically the patient is awake, alert, oriented x3. Mood and affect normal. LABS: Hemoglobin 8.4, white count 12.7, BUN of 13, creatinine 0.61. Electrolytes have been normal. Liver enzymes are normal. Urine with some hematuria but no significant white cells. Influenza serology was negative. Acute abdominal series normal with chest component normal. DIAGNOSTIC IMPRESSION AND PLAN: Patient with a low-grade fever; could be related to possible gastritis of possible viral etiology. Clinically doubt any bacterial infection, as the patient does not look toxic. Very minimal tenderness was noticed on abdominal examination, which is not in proportion with the symptoms patient has been describing. PLAN: 1. Will hold on any systemic antibiotic therapy at this point. 2. Patient will be monitored closely. If she has any further fever or change in her clinical condition, would recommend a CT of abdomen and pelvis to find and rule out any intraabdominal pathology. For now will follow her cultures. Thank you for this consultation. Will follow this patient along with you. MMODL / IJN: [id number] / MTDMary
--- NOTE | 2017-04-28 07:34 | DS ---
DISCHARGE SUMMARY FINAL DIAGNOSES: 1. Incessant vomiting, nausea, acute gastritis. 2. Depression with suicidal ideations. 3. Continued fever with possible short febrile illness. 4. Anemia microcytic, chronic in nature. 5. History of positive THC. 6. History of gastroesophageal reflux disease. DISCHARGE DISPOSITION: The patient will be discharged in a stable condition with guarded prognosis. Psychiatry cleared the patient for discharge. HISTORY OF PRESENT ILLNESS: This 47-year-old woman with a past medical history of multiple medical problems admitted with incessant vomiting and multiple other medical problems. Patient was treated symptomatically. Patient was medically stable, able to contain food, keep the food. Psychiatry saw the patient and Infectious Disease, Dr. Craig, also saw the patient. Patient improved significantly. On exam, vitals are stable. CARDIOVASCULAR: S1 and S2 muffled. ABDOMEN: Soft. NERVOUS SYSTEM: No focal deficits. DISCHARGE ADVICE: 1. Diet is cardiac. 2. Activity limited until followup. 3. Follow up with Dr. Darden in 2 to 3 days. 4. Follow up with Dr. Craig, Infectious Disease, on a p.r.n. basis. 5. Follow up with psych as recommended. Medications are: 1. Xanax 0.25 p.o. b.i.d. p.r.n. 2. Abilify 15 mg q.h.s. 3. Celexa 20 mg q.h.s. 4. Omeprazole 20 mg p.o. b.i.d. 5. Zofran 4 mg p.o. b.i.d. p.r.n. 6. Phenergan 25 mg p.o. b.i.d. p.r.n. Antibiotics are withheld at this time because there is no obvious source of infection currently. MMODL / IJN: [id number] / MTDD
== END 2017-04-27 19:43 | disposition home or self-care (01) ==
LOC: EC 17:00 → 4MS4W 21:36
PROVIDERS: ADMIT Hospitalist; ATTEND Hospitalist
DX: K29.00 Acute gastritis without bleeding (principal); R45.851 Suicidal ideations; F31.9 Bipolar disorder, unspecified; R50.9 Fever, unspecified; F41.0 Panic disorder [episodic paroxysmal anxiety]; F41.9 Anxiety disorder, unspecified; K21.9 Gastro-esophageal reflux disease without esophagitis; F12.10 Cannabis abuse, uncomplicated; F50.2 Bulimia nervosa; D50.9 Iron deficiency anemia, unspecified; R31.9 Hematuria, unspecified; Z79.899 Other long term (current) drug therapy; Z87.898 Personal history of other specified conditions
CPT/HCPCS: 99285 ×2; 96365 ×2; 96361 ×3; 96372 ×4; 96375; 36415; 80053 ×2; 82150; 83690; 85025 ×2; 86140; 81001; 81025; 87040; 80306; 80320; 87502; 71045; 74018; G0378 ×2; J2060; J1200; J2550; J2405; J3486; C9113

== ENCOUNTER → 2017-05-07 | Outpatient (CLI) | payer BC ==
[2017-05-07 08:47] LABS: Anisocytosis Slight; Basophils % (A) 1 %; Eosinophils # (A) 0.1 k/uL (0-0.7); Eosinophils % (A) 2 %; HCT 27.3 % (34.0-46.0); HGB 7.6 gm/dL (11.4-16.0); Hypochromasia Marked; Lymphocytes % (A) 14 %; MCH 22.4 pg (25.0-35.0); MCV 79.9 fL (80.0-100.0); Mean Platelet Volume 7.5; Microcytosis Slight; Monocytes # (A) 0.6 k/uL (0-1.0); Monocytes % (A) 8 %; Neutrophils # (A) 5.4 k/uL (1.3-7.7); Neutrophils % (A) 75 %; Platelet Count 444 k/uL (150-450); RBC 3.41 m/uL (3.80-5.40); RDW 16.7 % (11.5-15.5); WBC 7.3 k/uL (3.8-10.6)
== END | disposition home or self-care (01) ==
LOC: LABPAT 07:51
PROVIDERS: ATTEND Obstetrics & Gynecology
DX: Z01.812 Encounter for preprocedural laboratory examination (principal); D64.9 Anemia, unspecified; N92.0 Excessive and frequent menstruation with regular cycle
CPT/HCPCS: 36415; 85025

== ENCOUNTER 2017-05-10 06:20 | Day surgery (SDC) | payer BC ==
[2017-05-05 14:35] VITALS: BMI 25.0
[~2017-05-10 06:20] MED LIST changes: +DEXAMETHASONE SOD PHOSPHATE 10 MG/ML 1 ML VIAL IV ONE; +LIDOCAINE 1% 20 ML VIAL (10MG/ML) FOR IV START INTRADERMA PRN; +MORPHINE SULFATE 4 MG/ML SYRINGE IV PRN; +ONDANSETRON 4 MG/2 ML VIAL IVP ONE; +Pre Op ABX Message 1 EACH MISC MISCELLANE ONE; +SCOPOLAMINE 1.5MG/72HR PATCH TRANSDERM ONE
[2017-05-10] MEDS ORDERED: LACTATED RINGERS 1,000 ML IV ONE (06:53)
[2017-05-10] MEDS ORDERED: MIDAZOLAM 2 MG/2 ML VIAL IVP ONE (07:26)
[2017-05-10] MEDS ORDERED: diphenhydrAMINE 50 MG/ML 1 ML VIAL ONE (07:27)
[2017-05-10] MEDS ORDERED: PROPOFOL 10 MG/ML 20 ML VIAL IV ONE (07:27)
[2017-05-10] MEDS ORDERED: SUCCINYLCHOLINE CHLORIDE 100 MG/5 ML SYR IV ONE (07:27)
[2017-05-10] MEDS ORDERED: MIDAZOLAM 2 MG/2 ML VIAL ONE (07:27)
[2017-05-10] MEDS ORDERED: fentaNYL (PF) 50 MCG/ML 2 ML AMP ONE (07:27)
[2017-05-10] MEDS ORDERED: KETOROLAC 30 MG/ML 1 ML VIAL ONE (07:27)
[2017-05-10] MEDS ORDERED: LIDOCAINE 1% INJ 10MG/ML (20 ML MDV) ONE (07:27)
--- NOTE | 2017-05-10 08:00 | P.OP ---
Date of Procedure: 05/10/17 Preoperative Diagnosis: Hypermenorrhea, dysmenorrhea, anemia Postoperative Diagnosis: Same, difficult peripheral IV start Procedure(s) Performed: Hysteroscopy, NovaSure endometrial ablation Anesthesia: KIMBERLIA Surgeon: Carol Jordan Estimated Blood Loss (ml): 5 IV fluids (ml): 500 Urine output (ml): 50 Pathology: none sent Condition: stable Disposition: PACU Description of Procedure: Patient is brought to the operating suite where a general anesthetic is administered without difficulty. There is a very difficult peripheral IV start requiring multiple attempts. The appropriate timeout is performed to assure proper patient and procedural identification. Urine hCG is negative. Patient is placed in the dorsal lithotomy position, bladder is drained for approximately 50 mL of clear yellow urine. The perineal body, cervix and vagina are all prepped and draped in the usual sterile fashion. Examination under anesthesia reveals a mobile smooth small uterus, negative adnexa bilaterally. Weighted speculum was placed into the vagina and the anterior lip of the cervix is grasped with a Allis clamp. Uterus sounds to a depth of 10 cm in the anteverted position. The cervix was gently and systematically dilated using Hanks dilators. The hysteroscope was introduced and the cavity is distended with sterile saline and inspected. There is a fair amount of proliferative-type appearing tissue, no obvious polyps, fibroids, septa or defects. Hysteroscope was removed. Endometrial wand is then placed and seated properly. Uterine length of 6.5 cm, width of 4.5 cm is noted and calibrated. This procedure is then carried out for total of 68 seconds. A power of 161 W is noted. When completed, the wand is removed. The endometrial cavity is once again inspected with the hysteroscope and noted to be uniformly blanched. All sponge needle and instrument counts are correct at the end of the procedure. Allis clamp was removed, cervix is clean and dry. Patient is brought back to the recovery room in very good condition with stable vital signs including blood pressure 86/45, pulse 61, respiratory rate 12, 100% O2 saturation. She is given Toradol prior to leaving the OR. She will follow-up with me in the office in 2 weeks. She has been advised to use Advil, Motrin or Aleve as needed postoperatively.
[2017-05-10 08:12] VITALS: TEMP 96.9
[2017-05-10 09:02] VITALS: RESP 16
[2017-05-10 09:33] VITALS: BP 108/56; PULSE 64
== END 2017-05-10 09:50 | disposition home or self-care (01) ==
LOC: OR 06:20
PROVIDERS: ATTEND Obstetrics & Gynecology
DX: N92.0 Excessive and frequent menstruation with regular cycle (principal); N94.6 Dysmenorrhea, unspecified; D50.0 Iron deficiency anemia secondary to blood loss (chronic); Z80.3 Family history of malignant neoplasm of breast; F32.9 Major depressive disorder, single episode, unspecified; Z79.899 Other long term (current) drug therapy
CPT/HCPCS: 81025; 58563; J2250; J2270; J1200; J1100; J2405; J2001; J3010; J1885; J0330; J2704

== ENCOUNTER 2017-07-02 06:55 | Emergency (ER) | payer BC ==
[2017-07-02] MEDS ORDERED: diphenhydrAMINE 50 MG/ML 1 ML VIAL IVP STA (07:49)
[2017-07-02] MEDS ORDERED: DIAZEPAM 5 MG/ML 2 ML INJ IVP STA (07:49)
[2017-07-02] MEDS ORDERED: ONDANSETRON 4 MG/2 ML VIAL IVP STA (07:49)
[2017-07-02] MEDS ORDERED: SODIUM CHLORIDE 0.9% 1,000 ML IV STA ×2 (07:49)
[2017-07-02] MEDS ORDERED: SODIUM CHLORIDE 0.9% 500 ML IV STA (07:49)
[2017-07-02 08:13] LABS: ALT 24 U/L (9-52); AST 21 U/L (14-36); Alkaline Phosphatase 61 U/L (38-126); Anion Gap 17 mmol/L; Blood Urea Nitrogen 22 mg/dL (7-17); Calcium 10.3 mg/dL (8.4-10.2); Carbon Dioxide 28 mmol/L (22-30); Chloride 102 mmol/L (98-107); Glucose 128 mg/dL (74-99); Magnesium 2.2 mg/dL (1.6-2.3); Phosphorus 3.5 mg/dL (2.5-4.5); Potassium 3.9 mmol/L (3.5-5.1); Sodium 147 mmol/L (137-145); Total Bilirubin 0.4 mg/dL (0.2-1.3); Total Protein 8.5 g/dL (6.3-8.2)
[2017-07-02 08:14] LABS: Anisocytosis Slight; Basophils % (A) 0 %; Eosinophils # (A) 0.1 k/uL (0-0.7); Eosinophils % (A) 1 %; HCT 33.1 % (34.0-46.0); Hypochromasia Marked; Lymphocytes # (A) 0.8 k/uL (1.0-4.8); Lymphocytes % (A) 6 %; MCH 20.7 pg (25.0-35.0); MCHC 29.2 g/dL (31.0-37.0); Microcytosis Marked; Monocytes # (A) 0.8 k/uL (0-1.0); Monocytes % (A) 6 %; Neutrophils # (A) 12.7 k/uL (1.3-7.7); Neutrophils % (A) 87 %; Platelet Count 513 k/uL (150-450); RBC 4.67 m/uL (3.80-5.40); RDW 18.3 % (11.5-15.5); WBC 14.5 k/uL (3.8-10.6)
[2017-07-02 08:16] LABS: HGB 9.7 gm/dL (11.4-16.0); MCV 70.9 fL (80.0-100.0)
[2017-07-02 08:32] LABS: Creatine Kinase MB 0.3 ng/mL (0.0-2.4)
--- NOTE | 2017-07-02 08:50 | ED ---
General Adult HPI - General Chief complaint: Nausea/Vomiting/Diarrhea Stated complaint: nausea, vomiting Time Seen by Provider: 07/02/17 07:03 Source: patient, RN notes reviewed, old records reviewed Mode of arrival: wheelchair Limitations: no limitations - History of Present Illness Initial comments: This is a 47-year-old female the ER for evasive intractable nausea vomiting. Patient does have history of mental illness denies drug or alcohol abuse. Patient states has had similar symptoms before, no prior abdominal surgeries. Patient states she cannot keep anything down is not for to 3 days. No fevers or travel history no sick contacts of family members with similar complaint - Related Data Home Medications Medication Instructions Recorded Confirmed ARIPiprazole [Abilify] 15 mg PO HS 01/20/16 07/02/17 Omeprazole [PriLOSEC] 20 mg PO BID 01/20/16 07/02/17 Citalopram Hydrobromide [CeleXA] 20 mg PO HS 02/10/17 07/02/17 Promethazine [Phenergan] 25 mg PO BID PRN 02/12/17 07/02/17 Ondansetron Odt [Zofran ODT] 4 mg PO BID PRN 04/26/17 07/02/17 Allergies Allergy/AdvReac Type Severity Reaction Status Date / Time No Known Allergies Allergy Verified 07/02/17 08:18 Review of Systems ROS Statement: Those systems with pertinent positive or pertinent negative responses have been documented in the HPI. ROS Other: All systems not noted in ROS Statement are negative. Past Medical History Past Medical History: GERD/Reflux Additional Past Medical History / Comment(s): states "having heavy periods",HX. GASTRITIS, LOW IRON, intermittent nausea/vomiting for 4 years-unsure of cause History of Any Multi-Drug Resistant Organisms: None Reported Past Surgical History: No Surgical Hx Reported Additional Past Surgical History / Comment(s): EGD,colonoscopy Past Anesthesia/Blood Transfusion Reactions: Postoperative Nausea & Vomiting ( PONV) Additional Past Anesthesia/Blood Transfusion Reaction / Comment(s): no hx blood transfusion Past Psychological History: Anxiety, Bipolar, Depression, Panic Disorder Smoking Status: Never smoker Past Alcohol Use History: None Reported Past Drug Use History: None Reported - Past Family History Mother Family Medical History: No Reported History General Exam Limitations: no limitations General appearance: alert, in no apparent distress, anxious, in distress, cachectic Head exam: Present: atraumatic, normocephalic, normal inspection Eye exam: Present: normal appearance, PERRL, EOMI. Absent: scleral icterus, conjunctival injection, periorbital swelling ENT exam: Present: normal exam, mucous membranes moist Neck exam: Present: normal inspection. Absent: tenderness, meningismus, lymphadenopathy Respiratory exam: Present: normal lung sounds bilaterally. Absent: respiratory distress, wheezes, rales, rhonchi, stridor Cardiovascular Exam: Present: regular rate, normal rhythm, normal heart sounds. Absent: systolic murmur, diastolic murmur, rubs, gallop, clicks GI/Abdominal exam: Present: soft, normal bowel sounds. Absent: distended, tenderness, guarding, rebound, rigid Extremities exam: Present: normal inspection, full ROM, normal capillary refill. Absent: tenderness, pedal edema, joint swelling, calf tenderness Back exam: Present: normal inspection Neurological exam: Present: alert, oriented X3, CN II-XII intact Psychiatric exam: Present: normal affect, normal mood Skin exam: Present: warm, dry, intact, normal color. Absent: rash Course Vital Signs 07/02/17 07/02/17 07/02/17 06:57 08:49 10:33 Temperature 98.7 F 98 F Pulse Rate 69 87 72 Respiratory 18 18 20 Rate Blood Pressure 155/84 132/68 154/87 O2 Sat by Pulse 99 99 98 Oximetry - Reevaluation(s) Reevaluation #1: 07/02/17 10:37 Patient is significantly improved, no active nausea vomiting or diarrhea EKG Findings - EKG Comments: EKG Findings:: EKG shows normal sinus rhythm rate of 79, MI 122, QRS 80, QTC 477 Medical Decision Making - Medical Decision Making 47 female the ER for intractable nausea vomiting, vomiting at this point is controlled. Patient continue outpatient medication regimen, patient will be discharged home - Lab Data Result diagrams: 07/02/17 07:40 07/02/17 07:40 Lab Results 07/02/17 07/02/17 07/02/17 Range/Units 07:40 07:40 07:40 WBC 14.5 H (3.8-10.6) k/uL RBC 4.67 (3.80-5.40) m/uL Hgb 9.7 L D (11.4-16.0) gm/dL Hct 33.1 L (34.0-46.0) % MCV 70.9 L D (80.0-100.0) fL MCH 20.7 L (25.0-35.0) pg MCHC 29.2 L (31.0-37.0) g/dL RDW 18.3 H (11.5-15.5) % Plt Count 513 H (150-450) k/uL Neutrophils % 87 % Lymphocytes % 6 % Monocytes % 6 % Eosinophils % 1 % Basophils % 0 % Neutrophils # 12.7 H (1.3-7.7) k/uL Lymphocytes # 0.8 L (1.0-4.8) k/uL Monocytes # 0.8 (0-1.0) k/uL Eosinophils # 0.1 (0-0.7) k/uL Basophils # 0.0 (0-0.2) k/uL Hypochromasia Marked Anisocytosis Slight Microcytosis Marked Sodium 147 H (137-145) mmol/L Potassium 3.9 (3.5-5.1) mmol/L Chloride 102 (98-107) mmol/L Carbon Dioxide 28 (22-30) mmol/L Anion Gap 17 mmol/L BUN 22 H (7-17) mg/dL Creatinine 0.80 (0.52-1.04) mg/dL Est GFR (CKD-EPI)AfAm >90 (>60 ml/min/1.73 sqM) Est GFR (CKD-EPI)NonAf 90 (>60 ml/min/1.73 sqM) Glucose 128 H (74-99) mg/dL Calcium 10.3 H (8.4-10.2) mg/dL Phosphorus 3.5 (2.5-4.5) mg/dL Magnesium 2.2 (1.6-2.3) mg/dL Total Bilirubin 0.4 (0.2-1.3) mg/dL AST 21 (14-36) U/L ALT 24 (9-52) U/L Alkaline Phosphatase 61 (38-126) U/L Total Creatine Kinase 62 (30-135) U/L CK-MB (CK-2) 0.3 (0.0-2.4) ng/mL CK-MB (CK-2) Rel Index 0.5 Total Protein 8.5 H (6.3-8.2) g/dL Albumin 5.0 (3.5-5.0) g/dL Urine Color Urine Appearance (Clear) Urine pH (5.0-8.0) Ur Specific [place] (1.001-1.035) Urine Protein (Negative) Urine Glucose (UA) (Negative) Urine Ketones (Negative) Urine Blood (Negative) Urine Nitrite (Negative) Urine Bilirubin (Negative) Urine Urobilinogen (<2.0) mg/dL Ur Leukocyte Esterase (Negative) Urine RBC (0-5) /hpf Urine WBC (0-5) /hpf Ur Squamous Epith Cells (0-4) /hpf Urine Bacteria (None) /hpf Urine Mucus (None) /hpf 07/02/17 Range/Units 09:15 WBC (3.8-10.6) k/uL RBC (3.80-5.40) m/uL Hgb (11.4-16.0) gm/dL Hct (34.0-46.0) % MCV (80.0-100.0) fL MCH (25.0-35.0) pg MCHC (31.0-37.0) g/dL RDW (11.5-15.5) % Plt Count (150-450) k/uL Neutrophils % % Lymphocytes % % Monocytes % % Eosinophils % % Basophils % % Neutrophils # (1.3-7.7) k/uL Lymphocytes # (1.0-4.8) k/uL Monocytes # (0-1.0) k/uL Eosinophils # (0-0.7) k/uL Basophils # (0-0.2) k/uL Hypochromasia Anisocytosis Microcytosis Sodium (137-145) mmol/L Potassium (3.5-5.1) mmol/L Chloride (98-107) mmol/L Carbon Dioxide (22-30) mmol/L Anion Gap mmol/L BUN (7-17) mg/dL Creatinine (0.52-1.04) mg/dL Est GFR (CKD-EPI)AfAm (>60 ml/min/1.73 sqM) Est GFR (CKD-EPI)NonAf (>60 ml/min/1.73 sqM) Glucose (74-99) mg/dL Calcium (8.4-10.2) mg/dL Phosphorus (2.5-4.5) mg/dL Magnesium (1.6-2.3) mg/dL Total Bilirubin (0.2-1.3) mg/dL AST (14-36) U/L ALT (9-52) U/L Alkaline Phosphatase (38-126) U/L Total Creatine Kinase (30-135) U/L CK-MB (CK-2) (0.0-2.4) ng/mL CK-MB (CK-2) Rel Index Total Protein (6.3-8.2) g/dL Albumin (3.5-5.0) g/dL Urine Color Yellow Urine Appearance Cloudy H (Clear) Urine pH 6.5 (5.0-8.0) Ur Specific [place] 1.026 (1.001-1.035) Urine Protein 4+ H (Negative) Urine Glucose (UA) Negative (Negative) Urine Ketones Trace H (Negative) Urine Blood Large H (Negative) Urine Nitrite Negative (Negative) Urine Bilirubin Negative (Negative) Urine Urobilinogen <2.0 (<2.0) mg/dL Ur Leukocyte Esterase Negative (Negative) Urine RBC 38 H (0-5) /hpf Urine WBC 6 H (0-5) /hpf Ur Squamous Epith Cells 10 H (0-4) /hpf Urine Bacteria Occasional H (None) /hpf Urine Mucus Many H (None) /hpf - Radiology Data Radiology results: report reviewed (CT head and pelvis is negative), image reviewed Disposition Clinical Impression: Intractable vomiting with nausea Disposition: HOME SELF-CARE Condition: Good Instructions: Acute Nausea and Vomiting (ED) Is patient prescribed a controlled substance at d/c from ED?: No Referrals: Oren Darden DO [Primary Care Provider] - 1-2 days
[2017-07-02 09:43] LABS: Appearance,Urine Cloudy (Clear); Bacteria,Urine Occasional /hpf; Bilirubin,Urine Negative (Negative); Blood,Urine Large (Negative); Color,Urine Yellow; Glucose,Urine (UA) Negative (Negative); Ketones,Urine Trace (Negative); Leukocyte Esterase,Urine Negative (Negative); Mucus,Urine Many /hpf; Nitrite,Urine Negative (Negative); PH, Urine 6.5 (5.0-8.0); Protein,Urine 4+ (Negative); RBC,Urine 38 /hpf (0-5); Specific Gravity,Urine 1.026 (1.001-1.035); Squamous Epithelial Cell,Urine 10 /hpf (0-4); Urobilinogen,Urine <2.0 mg/dL (<2.0); WBC,Urine 6 /hpf (0-5)
--- NOTE | 2017-07-02 10:24 | CT ---
EXAMINATION TYPE: CT abdomen pelvis wo con DATE OF EXAM: 07/02/2017 COMPARISON: NONE HISTORY: Nausea and vomiting CT DLP: 792 mGycm Examination of the solid and hollow viscera is limited given the lack of contrast. FINDINGS: LUNG BASES: No evidence for nodule. No evidence for infiltrate. LIVER/GB: The gallbladder is unremarkable. No space-occupying hepatic lesion. PANCREAS: No pancreatic mass identified. No inflammatory process seen. SPLEEN: No evidence for splenomegaly. No intrasplenic lesions seen. ADRENALS: No adrenal nodules identified. No evidence for thickening. KIDNEYS: Hypoattenuating renal lesions may reflect small cysts. No nephrolithiasis. No hydronephrosis . BOWEL: Appendix has a normal appearance. No evidence of bowel obstruction. No inflammatory process. Lymph nodes: No evidence for adenopathy greater than 1 cm. Abdominal aorta: Atheromatous changes seen. No evidence for aneurysm. Genital organs: Ovarian follicles noted. Trace free fluid within the pelvis. No evidence for uterine mass.. Other: No significant abnormality. IMPRESSION: 1. No acute inflammatory process seen. No evidence for obstruction.
[2017-07-02 10:35] VITALS: BP 154/87; PULSE 72; RESP 20; TEMP 98
[2017-07-02] MEDS ORDERED: LORazepam 2 MG/ML INJ IV STA ×2 (10:43→10:45)
== END 2017-07-02 10:59 | disposition home or self-care (01) ==
LOC: EC 06:55
DX: R11.2 Nausea with vomiting, unspecified (principal); K21.9 Gastro-esophageal reflux disease without esophagitis; F31.9 Bipolar disorder, unspecified; F41.9 Anxiety disorder, unspecified; Z79.899 Other long term (current) drug therapy
CPT/HCPCS: 99285; 96374; 96375 ×3; 96361 ×3; 36415; 93005; 80053; 82550; 82553; 83735; 84100; 85025; 81001; 87086; 74176; J2060; J1200; J3360; J2405

== ENCOUNTER 2017-07-05 20:03 | Emergency (ER) | payer BC ==
[2017-07-05 20:09] VITALS: RESP 18
[2017-07-05] MEDS ORDERED: SODIUM CHLORIDE 0.9% 1,000 ML IV STA (20:18)
[2017-07-05] MEDS ORDERED: ONDANSETRON 4 MG/2 ML VIAL IVP STA (20:18)
--- NOTE | 2017-07-05 20:37 | ED ---
General Adult HPI - General Chief complaint: Nausea/Vomiting/Diarrhea Stated complaint: vomiting Time Seen by Provider: 07/05/17 20:18 Source: patient, RN notes reviewed Mode of arrival: ambulatory Limitations: no limitations - History of Present Illness Initial comments: Patient's 47-year-old female presents to the emergency room today with a chief complaint of symptoms nausea vomiting over the last week. She states that symptoms started with some constipation but she had to take an enema for. She states she's not had symptoms of nausea vomiting. Doesn't that she is passing gas. Has not had a bowel movement was states she's not had much of her appetite. She does admit to chronic abdominal pains that she's had similar symptoms in the past. Patient states most recently was seen here just a few days ago. She was given some Zofran at home that she has tried with little relief the symptoms. She denies any other complaints or symptoms. Patient denies any recent fever, chills, shortness of breath, chest pain, back pain, numbness or tingling, dysuria or hematuria, constipation or diarrhea, headaches or visual changes, or any other complaints. - Related Data Home Medications Medication Instructions Recorded Confirmed ARIPiprazole [Abilify] 15 mg PO HS 01/20/16 07/05/17 Omeprazole [PriLOSEC] 20 mg PO BID 01/20/16 07/05/17 Citalopram Hydrobromide [CeleXA] 20 mg PO HS 02/10/17 07/05/17 Promethazine [Phenergan] 25 mg PO BID PRN 02/12/17 07/05/17 Ondansetron Odt [Zofran ODT] 4 mg PO BID PRN 04/26/17 07/05/17 Previous Rx's Medication Instructions Recorded Famotidine [Pepcid] 20 mg PO BID #20 tablet 07/05/17 Ondansetron Odt [Zofran ODT] 4 mg PO Q8HR PRN #20 tab 07/05/17 Allergies Allergy/AdvReac Type Severity Reaction Status Date / Time No Known Allergies Allergy Verified 07/05/17 20:14 Review of Systems ROS Statement: Those systems with pertinent positive or pertinent negative responses have been documented in the HPI. ROS Other: All systems not noted in ROS Statement are negative. Past Medical History Past Medical History: GERD/Reflux Additional Past Medical History / Comment(s): states "having heavy periods",HX. GASTRITIS, LOW IRON, intermittent nausea/vomiting for 4 years-unsure of cause, History of Any Multi-Drug Resistant Organisms: None Reported Past Surgical History: No Surgical Hx Reported Additional Past Surgical History / Comment(s): EGD,colonoscopy, Past Anesthesia/Blood Transfusion Reactions: Postoperative Nausea & Vomiting ( PONV) Additional Past Anesthesia/Blood Transfusion Reaction / Comment(s): no hx blood transfusion Past Psychological History: Anxiety, Bipolar, Depression, Panic Disorder Smoking Status: Never smoker Past Alcohol Use History: None Reported Past Drug Use History: None Reported - Past Family History Mother Family Medical History: No Reported History General Exam - General Exam Comments Initial Comments: General: The patient is awake and alert, in no distress, and does not appear acutely ill. Eye: Pupils are equal, round and reactive to light, extra-ocular movements are intact. No nystagmus. There is normal conjunctiva bilaterally. No signs of icterus. Ears, nose, mouth and throat: There are moist mucous membranes and no oral lesions. Neck: The neck is supple, there is no tenderness or JVD. Cardiovascular: There is a regular rate and rhythm. No murmur, rub or gallop is appreciated. Respiratory: Lungs are clear to auscultation, respirations are non-labored, breath sounds are equal. No wheezes, stridor, rales, or rhonchi. Gastrointestinal: Soft, non-distended, non-tender abdomen without masses or organomegaly noted. There is no rebound or guarding present. No CVA tenderness. Musculoskeletal: Normal ROM, no tenderness. Strength 5/5. Sensation intact. Pulses equal bilaterally 2+. Neurological: A&O x 3. CN II-XII intact, There are no obvious motor or sensory deficits. Coordination appears grossly intact. Speech is normal. Skin: Skin is warm and dry and no rashes or lesions are noted. Psychiatric: Cooperative, appropriate mood & affect, normal judgment. Limitations: no limitations Course Vital Signs 07/05/17 20:05 Temperature 98.0 F Pulse Rate 70 Respiratory 18 Rate Blood Pressure 143/86 O2 Sat by Pulse 96 Oximetry Medical Decision Making - Medical Decision Making Patient's labs been compared to previous labs from 3 days ago and show improvement. CT is unremarkable. Patient feeling better at this time will be discharged home with Pepcid and Zofran for her symptoms. Advised follow-up the family physician over the next 2 days return if symptoms increase or worsen. - Lab Data Result diagrams: 07/05/17 20:37 07/05/17 20:37 Lab Results 07/05/17 07/05/17 07/05/17 Range/Units 20:37 20:37 20:44 WBC 6.4 (3.8-10.6) k/uL RBC 4.49 (3.80-5.40) m/uL Hgb 9.2 L (11.4-16.0) gm/dL Hct 31.9 L (34.0-46.0) % MCV 70.9 L (80.0-100.0) fL MCH 20.6 L (25.0-35.0) pg MCHC 29.0 L (31.0-37.0) g/dL RDW 17.6 H (11.5-15.5) % Plt Count 527 H (150-450) k/uL Neutrophils % 67 % Lymphocytes % 21 % Monocytes % 9 % Eosinophils % 1 % Basophils % 0 % Neutrophils # 4.3 (1.3-7.7) k/uL Lymphocytes # 1.3 (1.0-4.8) k/uL Monocytes # 0.6 (0-1.0) k/uL Eosinophils # 0.1 (0-0.7) k/uL Basophils # 0.0 (0-0.2) k/uL Hypochromasia Marked Poikilocytosis Slight Anisocytosis Slight Microcytosis Marked Sodium 139 (137-145) mmol/L Potassium 3.9 (3.5-5.1) mmol/L Chloride 96 L (98-107) mmol/L Carbon Dioxide 30 (22-30) mmol/L Anion Gap 13 mmol/L BUN 14 (7-17) mg/dL Creatinine 0.57 (0.52-1.04) mg/dL Est GFR (CKD-EPI)AfAm >90 (>60 ml/min/1.73 sqM) Est GFR (CKD-EPI)NonAf >90 (>60 ml/min/1.73 sqM) Glucose 101 H (74-99) mg/dL Calcium 9.4 (8.4-10.2) mg/dL Total Bilirubin 0.6 (0.2-1.3) mg/dL AST 29 (14-36) U/L ALT 23 (9-52) U/L Alkaline Phosphatase 39 (38-126) U/L Total Protein 7.3 (6.3-8.2) g/dL Albumin 4.4 (3.5-5.0) g/dL Amylase 55 (30-110) U/L Lipase 47 (23-300) U/L Urine Color Urine Appearance (Clear) Urine pH (5.0-8.0) Ur Specific [place] (1.001-1.035) Urine Protein (Negative) Urine Glucose (UA) (Negative) Urine Ketones (Negative) Urine Blood (Negative) Urine Nitrite (Negative) Urine Bilirubin (Negative) Urine Urobilinogen (<2.0) mg/dL Ur Leukocyte Esterase (Negative) Urine RBC (0-5) /hpf Urine WBC (0-5) /hpf Ur Squamous Epith Cells (0-4) /hpf Urine Mucus (None) /hpf Urine HCG, Qual Not Detected (Not Detectd) 07/05/17 Range/Units 20:44 WBC (3.8-10.6) k/uL RBC (3.80-5.40) m/uL Hgb (11.4-16.0) gm/dL Hct (34.0-46.0) % MCV (80.0-100.0) fL MCH (25.0-35.0) pg MCHC (31.0-37.0) g/dL RDW (11.5-15.5) % Plt Count (150-450) k/uL Neutrophils % % Lymphocytes % % Monocytes % % Eosinophils % % Basophils % % Neutrophils # (1.3-7.7) k/uL Lymphocytes # (1.0-4.8) k/uL Monocytes # (0-1.0) k/uL Eosinophils # (0-0.7) k/uL Basophils # (0-0.2) k/uL Hypochromasia Poikilocytosis Anisocytosis Microcytosis Sodium (137-145) mmol/L Potassium (3.5-5.1) mmol/L Chloride (98-107) mmol/L Carbon Dioxide (22-30) mmol/L Anion Gap mmol/L BUN (7-17) mg/dL Creatinine (0.52-1.04) mg/dL Est GFR (CKD-EPI)AfAm (>60 ml/min/1.73 sqM) Est GFR (CKD-EPI)NonAf (>60 ml/min/1.73 sqM) Glucose (74-99) mg/dL Calcium (8.4-10.2) mg/dL Total Bilirubin (0.2-1.3) mg/dL AST (14-36) U/L ALT (9-52) U/L Alkaline Phosphatase (38-126) U/L Total Protein (6.3-8.2) g/dL Albumin (3.5-5.0) g/dL Amylase (30-110) U/L Lipase (23-300) U/L Urine Color Yellow Urine Appearance Cloudy H (Clear) Urine pH 7.0 (5.0-8.0) Ur Specific [place] 1.020 (1.001-1.035) Urine Protein 1+ H (Negative) Urine Glucose (UA) Negative (Negative) Urine Ketones 2+ H (Negative) Urine Blood Moderate H (Negative) Urine Nitrite Negative (Negative) Urine Bilirubin Negative (Negative) Urine Urobilinogen 6.0 (<2.0) mg/dL Ur Leukocyte Esterase Moderate H (Negative) Urine RBC 62 H (0-5) /hpf Urine WBC 7 H (0-5) /hpf Ur Squamous Epith Cells 15 H (0-4) /hpf Urine Mucus Few H (None) /hpf Urine HCG, Qual (Not Detectd) Disposition Clinical Impression: Nausea & vomiting Disposition: HOME SELF-CARE Condition: Good Instructions: Acute Nausea and Vomiting (ED) Additional Instructions: Please use medication as discussed. Please follow-up with family doctor in the next 2 days of symptoms have not improved. Please return to emergency room if the symptoms increase or worsen or for any other concerns. Prescriptions: Famotidine [Pepcid] 20 mg PO BID #20 tablet Ondansetron Odt [Zofran ODT] 4 mg PO Q8HR PRN #20 tab PRN Reason: Nausea Is patient prescribed a controlled substance at d/c from ED?: No Referrals: Oren Darden DO [Primary Care Provider] - 1-2 days Time of Disposition: 22:12
[2017-07-05 20:46] LABS: Anisocytosis Slight; Basophils % (A) 0 %; Eosinophils # (A) 0.1 k/uL (0-0.7); Eosinophils % (A) 1 %; HCT 31.9 % (34.0-46.0); HGB 9.2 gm/dL (11.4-16.0); Hypochromasia Marked; Lymphocytes # (A) 1.3 k/uL (1.0-4.8); Lymphocytes % (A) 21 %; MCH 20.6 pg (25.0-35.0); MCV 70.9 fL (80.0-100.0); Mean Platelet Volume 6.5; Microcytosis Marked; Monocytes # (A) 0.6 k/uL (0-1.0); Monocytes % (A) 9 %; Neutrophils # (A) 4.3 k/uL (1.3-7.7); Neutrophils % (A) 67 %; Platelet Count 527 k/uL (150-450); Poikilocytosis Slight; RBC 4.49 m/uL (3.80-5.40); RDW 17.6 % (11.5-15.5); WBC 6.4 k/uL (3.8-10.6)
[2017-07-05 20:57] LABS: Appearance,Urine Cloudy (Clear); Bilirubin,Urine Negative (Negative); Blood,Urine Moderate (Negative); Color,Urine Yellow; Glucose,Urine (UA) Negative (Negative); Ketones,Urine 2+ (Negative); Leukocyte Esterase,Urine Moderate (Negative); Mucus,Urine Few /hpf; Nitrite,Urine Negative (Negative); Protein,Urine 1+ (Negative); RBC,Urine 62 /hpf (0-5); Squamous Epithelial Cell,Urine 15 /hpf (0-4); WBC,Urine 7 /hpf (0-5)
[2017-07-05 20:59] LABS: ALT 23 U/L (9-52); AST 29 U/L (14-36); Albumin 4.4 g/dL (3.5-5.0); Alkaline Phosphatase 39 U/L (38-126); Amylase 55 U/L (30-110); Anion Gap 13 mmol/L; Blood Urea Nitrogen 14 mg/dL (7-17); Calcium 9.4 mg/dL (8.4-10.2); Carbon Dioxide 30 mmol/L (22-30); Chloride 96 mmol/L (98-107); Glucose 101 mg/dL (74-99); Lipase 47 U/L (23-300); Potassium 3.9 mmol/L (3.5-5.1); Sodium 139 mmol/L (137-145); Total Bilirubin 0.6 mg/dL (0.2-1.3); Total Protein 7.3 g/dL (6.3-8.2)
--- NOTE | 2017-07-05 21:07 | XR ---
EXAMINATION TYPE: XR KUB DATE OF EXAM: 07/05/2017 8:41 PM CLINICAL HISTORY: Abdominal pain with nausea and vomiting for one week. TECHNIQUE: Two Upright KUB images of the abdomen are obtained. COMPARISON: Abdominal x-ray April 26, 2017. CT abdomen and pelvis from 3 days ago.. FINDINGS: Scattered gas is seen in non-distended stomach and small bowel loops. Gas and fecal materia l is seen in non-distended colon. Left-sided pelvic phleboliths are redemonstrated. Lung bases are cl ear. Visualized osseous structures are intact. IMPRESSION: Overall nonobstructive bowel gas pattern.
[2017-07-05] MEDS ORDERED: diphenhydrAMINE 50 MG/ML 1 ML VIAL IVP STA (21:18)
--- NOTE | 2017-07-05 21:47 | CT ---
EXAMINATION TYPE: CT abdomen pelvis wo con DATE OF EXAM: 07/05/2017 HISTORY: VOMITING CT DLP: 279.4 mGycm. Automated Exposure Control for Dose Reduction was Utilized. TECHNIQUE: CT scan of the abdomen and pelvis is performed without oral or IV contrast. COMPARISON: CT abdomen and pelvis 3 days ago. FINDINGS: Within the limitations of a non-contrast study, the following observations are made. LUNG BASES: No significant abnormality is appreciated. LIVER/GB: No significant abnormality is appreciated. PANCREAS: No significant abnormality is seen. SPLEEN: No significant abnormality is seen. ADRENALS: No significant abnormality is seen. KIDNEYS: No renal stones or hydronephrosis is seen bilaterally. Scattered pelvic phleboliths are seen . No intraluminal calculus is seen in poorly distended bladder BOWEL: Evaluation of bowel is suboptimal secondary to lack of enteric contrast. There is no suspiciou s small or large bowel dilatation. A few scattered colonic diverticula are felt present. There is no CT evidence for acute diverticulitis. GENITAL ORGANS: Anteverted uterus is present. No free fluid is seen in the pelvis. LYMPH NODES: No greater than 1cm abdominal or pelvic lymph nodes are appreciated. OSSEOUS STRUCTURES: No significant abnormality is seen. OTHER: No significant additional abnormality is seen. IMPRESSION: No renal stones or hydronephrosis is seen bilaterally. No bowel obstruction is seen. No a cute finding identified on noncontrast CT. No significant change from prior.
[2017-07-05] MEDS ORDERED: FAMOTIDINE 20 MG/2 ML VIAL IV STA (22:11)
[2017-07-05 22:26] VITALS: BP 144/69; PULSE 77; TEMP 97.7
== END 2017-07-05 22:26 | disposition home or self-care (01) ==
LOC: EC 20:03
DX: R11.2 Nausea with vomiting, unspecified (principal); R14.3 Flatulence; K59.00 Constipation, unspecified; G89.29 Other chronic pain; R10.9 Unspecified abdominal pain; K21.9 Gastro-esophageal reflux disease without esophagitis; F31.9 Bipolar disorder, unspecified; Z79.899 Other long term (current) drug therapy
CPT/HCPCS: 36415; 80053; 82150; 83690; 85025; 81001; 81025; 74018; 74176; 99285; 96374; 96375 ×2; 96361; J1200; J2405

== ENCOUNTER 2017-07-31 08:53 | Emergency (ER) | payer BC ==
[2017-07-31] MEDS ORDERED: diphenhydrAMINE 50 MG/ML 1 ML VIAL IVP STA (09:13)
[2017-07-31] MEDS ORDERED: LORazepam 2 MG/ML INJ IV STA (09:13)
[2017-07-31] MEDS ORDERED: ONDANSETRON 4 MG/2 ML VIAL IVP STA ×2 (09:13→12:38)
[2017-07-31] MEDS ORDERED: SODIUM CHLORIDE 0.9% 1,000 ML IV STA (09:13)
--- NOTE | 2017-07-31 09:15 | ED ---
General Adult HPI - General Chief complaint: Nausea/Vomiting/Diarrhea Stated complaint: Vomiting Time Seen by Provider: 07/31/17 09:02 Source: patient, RN notes reviewed Mode of arrival: wheelchair Limitations: no limitations - History of Present Illness Initial comments: Patient 47-year-old female who presents emergency room today with a chief complaint of nausea vomiting that started last night. She does admit to several bouts of vomiting no signs of blood in the emesis. Patient does admit that she's had similar symptoms in the past over the past 4 years that multiple tests done. Patient denies any other complaints or symptoms. She states the symptoms are consistent with symptoms that she's had in the past. Patient denies any recent fever, chills, shortness of breath, chest pain, back pain, numbness or tingling, dysuria or hematuria, constipation or diarrhea, headaches or visual changes, or any other complaints. - Related Data Home Medications Medication Instructions Recorded Confirmed ARIPiprazole [Abilify] 15 mg PO HS 01/20/16 07/31/17 Omeprazole [PriLOSEC] 20 mg PO BID 01/20/16 07/31/17 Citalopram Hydrobromide [CeleXA] 20 mg PO HS 02/10/17 07/31/17 Promethazine [Phenergan] 25 mg PO BID PRN 02/12/17 07/31/17 Ondansetron Odt [Zofran ODT] 4 mg PO BID PRN 04/26/17 07/31/17 Previous Rx's Medication Instructions Recorded Famotidine [Pepcid] 20 mg PO BID #20 tablet 07/05/17 Allergies Allergy/AdvReac Type Severity Reaction Status Date / Time No Known Allergies Allergy Verified 07/31/17 08:57 Review of Systems ROS Statement: Those systems with pertinent positive or pertinent negative responses have been documented in the HPI. ROS Other: All systems not noted in ROS Statement are negative. Past Medical History Past Medical History: GERD/Reflux Additional Past Medical History / Comment(s): states "having heavy periods",HX. GASTRITIS, LOW IRON, intermittent nausea/vomiting for 4 years-unsure of cause, History of Any Multi-Drug Resistant Organisms: None Reported Past Surgical History: No Surgical Hx Reported Additional Past Surgical History / Comment(s): EGD,colonoscopy, Past Anesthesia/Blood Transfusion Reactions: Postoperative Nausea & Vomiting ( PONV) Additional Past Anesthesia/Blood Transfusion Reaction / Comment(s): no hx blood transfusion Past Psychological History: Anxiety, Bipolar, Depression, Panic Disorder Smoking Status: Never smoker Past Alcohol Use History: None Reported Past Drug Use History: None Reported - Past Family History Mother Family Medical History: No Reported History General Exam - General Exam Comments Initial Comments: General: The patient is awake and alert, mild distress. Eye: Pupils are equal, round and reactive to light, extra-ocular movements are intact. No nystagmus. There is normal conjunctiva bilaterally. No signs of icterus. Ears, nose, mouth and throat: There are moist mucous membranes and no oral lesions. Neck: The neck is supple, there is no tenderness or JVD. Cardiovascular: There is a regular rate and rhythm. No murmur, rub or gallop is appreciated. Respiratory: Lungs are clear to auscultation, respirations are non-labored, breath sounds are equal. No wheezes, stridor, rales, or rhonchi. Gastrointestinal: Abdomen soft on palpation. Mild tenderness in lower quadrants. No rebound tenderness. No guarding. No CVA tenderness. Musculoskeletal: Normal ROM, no tenderness. Strength 5/5. Sensation intact. Pulses equal bilaterally 2+. Neurological: A&O x 3. CN II-XII intact, There are no obvious motor or sensory deficits. Coordination appears grossly intact. Speech is normal. Skin: Skin is warm and dry and no rashes or lesions are noted. Psychiatric: Cooperative, appropriate mood & affect, normal judgment. Limitations: no limitations Course Vital Signs 07/31/17 07/31/17 07/31/17 08:56 11:12 11:58 Temperature 97.9 F Pulse Rate 74 85 72 Respiratory 16 18 17 Rate Blood Pressure 149/84 136/87 164/90 O2 Sat by Pulse 100 100 98 Oximetry Medical Decision Making - Medical Decision Making Patient reexamined at this time shows no signs of distress. She does not that she's feeling better. Labs been reviewed. Patient does have hemoglobin 8.7. White count was 14.4. Patient's had multiple episodes of nausea vomiting. She states symptoms are consistent with nausea vomiting that she's had in the past. She was here on 07/05/2017. Had a CT of the abdomen which was negative. Patient did have some hematuria at that time was also having hematuria again today. No visible blood and she goes to the bathroom but microscopic. It was discussed with patient about options of his CT today. However, due to most recent CAT scan of month ago was normal showing no abnormality. At this patient is advised follow-up with urologist for further evaluation for the hematuria. Advised following up with her family doctor over the next 2 days return here to the emergency room symptoms increase worsen. She states understanding and is in agreement. - Lab Data Result diagrams: 07/31/17 10:05 07/31/17 10:05 Lab Results 07/31/17 07/31/17 07/31/17 Range/Units 10:05 10:05 11:25 WBC 14.4 H (3.8-10.6) k/uL RBC 4.30 (3.80-5.40) m/uL Hgb 8.7 L (11.4-16.0) gm/dL Hct 30.3 L (34.0-46.0) % MCV 70.5 L (80.0-100.0) fL MCH 20.2 L (25.0-35.0) pg MCHC 28.7 L (31.0-37.0) g/dL RDW 18.2 H (11.5-15.5) % Plt Count 458 H (150-450) k/uL Neutrophils % 93 % Lymphocytes % 2 % Monocytes % 3 % Eosinophils % 1 % Basophils % 0 % Neutrophils # 13.3 H (1.3-7.7) k/uL Lymphocytes # 0.3 L (1.0-4.8) k/uL Monocytes # 0.5 (0-1.0) k/uL Eosinophils # 0.1 (0-0.7) k/uL Basophils # 0.0 (0-0.2) k/uL Hypochromasia Marked Poikilocytosis Slight Anisocytosis Slight Microcytosis Marked Sodium 145 (137-145) mmol/L Potassium 3.8 (3.5-5.1) mmol/L Chloride 105 (98-107) mmol/L Carbon Dioxide 20 L (22-30) mmol/L Anion Gap 20 mmol/L BUN 11 (7-17) mg/dL Creatinine 0.53 (0.52-1.04) mg/dL Est GFR (CKD-EPI)AfAm >90 (>60 ml/min/1.73 sqM) Est GFR (CKD-EPI)NonAf >90 (>60 ml/min/1.73 sqM) Glucose 158 H (74-99) mg/dL Calcium 9.8 (8.4-10.2) mg/dL Total Bilirubin 0.3 (0.2-1.3) mg/dL AST 24 (14-36) U/L ALT 23 (9-52) U/L Alkaline Phosphatase 55 (38-126) U/L Total Protein 7.9 (6.3-8.2) g/dL Albumin 4.8 (3.5-5.0) g/dL Amylase 98 (30-110) U/L Lipase 29 (23-300) U/L Urine Color Urine Appearance (Clear) Urine pH (5.0-8.0) Ur Specific Hulbert (1.001-1.035) Urine Protein (Negative) Urine Glucose (UA) (Negative) Urine Ketones (Negative) Urine Blood (Negative) Urine Nitrite (Negative) Urine Bilirubin (Negative) Urine Urobilinogen (<2.0) mg/dL Ur Leukocyte Esterase (Negative) Urine RBC (0-5) /hpf Urine WBC (0-5) /hpf Ur Squamous Epith Cells (0-4) /hpf Urine Bacteria (None) /hpf Urine Mucus (None) /hpf Urine HCG, Qual Not Detected (Not Detectd) 07/31/17 Range/Units 11:25 WBC (3.8-10.6) k/uL RBC (3.80-5.40) m/uL Hgb (11.4-16.0) gm/dL Hct (34.0-46.0) % MCV (80.0-100.0) fL MCH (25.0-35.0) pg MCHC (31.0-37.0) g/dL RDW (11.5-15.5) % Plt Count (150-450) k/uL Neutrophils % % Lymphocytes % % Monocytes % % Eosinophils % % Basophils % % Neutrophils # (1.3-7.7) k/uL Lymphocytes # (1.0-4.8) k/uL Monocytes # (0-1.0) k/uL Eosinophils # (0-0.7) k/uL Basophils # (0-0.2) k/uL Hypochromasia Poikilocytosis Anisocytosis Microcytosis Sodium (137-145) mmol/L Potassium (3.5-5.1) mmol/L Chloride (98-107) mmol/L Carbon Dioxide (22-30) mmol/L Anion Gap mmol/L BUN (7-17) mg/dL Creatinine (0.52-1.04) mg/dL Est GFR (CKD-EPI)AfAm (>60 ml/min/1.73 sqM) Est GFR (CKD-EPI)NonAf (>60 ml/min/1.73 sqM) Glucose (74-99) mg/dL Calcium (8.4-10.2) mg/dL Total Bilirubin (0.2-1.3) mg/dL AST (14-36) U/L ALT (9-52) U/L Alkaline Phosphatase (38-126) U/L Total Protein (6.3-8.2) g/dL Albumin (3.5-5.0) g/dL Amylase (30-110) U/L Lipase (23-300) U/L Urine Color Yellow Urine Appearance Cloudy H (Clear) Urine pH 6.5 (5.0-8.0) Ur Specific [place]bert 1.029 (1.001-1.035) Urine Protein 4+ H (Negative) Urine Glucose (UA) 3+ H (Negative) Urine Ketones 1+ H (Negative) Urine Blood Large H (Negative) Urine Nitrite Negative (Negative) Urine Bilirubin Negative (Negative) Urine Urobilinogen <2.0 (<2.0) mg/dL Ur Leukocyte Esterase Negative (Negative) Urine RBC 89 H (0-5) /hpf Urine WBC 7 H (0-5) /hpf Ur Squamous Epith Cells 10 H (0-4) /hpf Urine Bacteria Occasional H (None) /hpf Urine Mucus Many H (None) /hpf Urine HCG, Qual (Not Detectd) Disposition Clinical Impression: Nausea & vomiting, Hematuria Disposition: HOME SELF-CARE Condition: Good Instructions: Acute Nausea and Vomiting (ED) Additional Instructions: Please follow-up with urologist for blood that has been seen in the urine. Please follow-up family doctor over the next 2 days for symptoms of nausea vomiting. Please return here to the emergency room symptoms increase worsen or for any other concerns. Is patient prescribed a controlled substance at d/c from ED?: No Referrals: Oern Darden DO [Primary Care Provider] - 1-2 days Wilber Doll MD [STAFF PHYSICIAN] - 1-2 days Time of Disposition: 12:37
[2017-07-31 10:21] LABS: Anisocytosis Slight; Basophils % (A) 0 %; Eosinophils # (A) 0.1 k/uL (0-0.7); Eosinophils % (A) 1 %; HCT 30.3 % (34.0-46.0); HGB 8.7 gm/dL (11.4-16.0); Hypochromasia Marked; Lymphocytes # (A) 0.3 k/uL (1.0-4.8); Lymphocytes % (A) 2 %; MCH 20.2 pg (25.0-35.0); MCHC 28.7 g/dL (31.0-37.0); MCV 70.5 fL (80.0-100.0); Mean Platelet Volume 6.3; Microcytosis Marked; Monocytes # (A) 0.5 k/uL (0-1.0); Monocytes % (A) 3 %; Neutrophils # (A) 13.3 k/uL (1.3-7.7); Neutrophils % (A) 93 %; Platelet Count 458 k/uL (150-450); Poikilocytosis Slight; RDW 18.2 % (11.5-15.5); WBC 14.4 k/uL (3.8-10.6)
[2017-07-31 10:31] LABS: ALT 23 U/L (9-52); AST 24 U/L (14-36); Albumin 4.8 g/dL (3.5-5.0); Alkaline Phosphatase 55 U/L (38-126); Amylase 98 U/L (30-110); Anion Gap 20 mmol/L; Blood Urea Nitrogen 11 mg/dL (7-17); Calcium 9.8 mg/dL (8.4-10.2); Carbon Dioxide 20 mmol/L (22-30); Chloride 105 mmol/L (98-107); Glucose 158 mg/dL (74-99); Lipase 29 U/L (23-300); Potassium 3.8 mmol/L (3.5-5.1); Sodium 145 mmol/L (137-145); Total Bilirubin 0.3 mg/dL (0.2-1.3); Total Protein 7.9 g/dL (6.3-8.2)
[2017-07-31 11:42] LABS: Appearance,Urine Cloudy (Clear); Bacteria,Urine Occasional /hpf; Bilirubin,Urine Negative (Negative); Blood,Urine Large (Negative); Color,Urine Yellow; Glucose,Urine (UA) 3+ (Negative); Ketones,Urine 1+ (Negative); Leukocyte Esterase,Urine Negative (Negative); Mucus,Urine Many /hpf; Nitrite,Urine Negative (Negative); PH, Urine 6.5 (5.0-8.0); Protein,Urine 4+ (Negative); RBC,Urine 89 /hpf (0-5); Specific Gravity,Urine 1.029 (1.001-1.035); Squamous Epithelial Cell,Urine 10 /hpf (0-4); Urobilinogen,Urine <2.0 mg/dL (<2.0); WBC,Urine 7 /hpf (0-5)
--- NOTE | 2017-07-31 12:09 | XR ---
EXAMINATION TYPE: XR KUB DATE OF EXAM: 07/31/2017 11:57 AM CLINICAL HISTORY: Nausea and constipation TECHNIQUE: Single upright image of the abdomen is obtained. COMPARISON: None. FINDINGS: Scattered gas is seen in non-distended small bowel loops. Gas and fecal material is seen in non-distended colon. There is no visceromegaly, gross evidence of pneumoperitoneum, or abnormal calc ification appreciated. The lung bases are clear and the osseous structures are intact. Multiple phleb oliths are noted within the pelvis. IMPRESSION: Nonobstructive bowel gas pattern.
[2017-07-31] MEDS ORDERED: SODIUM CHLORIDE 0.9% 500 ML IV STA (12:38)
[2017-07-31 13:08] VITALS: BP 115/70; PULSE 88; RESP 19; TEMP 100
== END 2017-07-31 13:32 | disposition home or self-care (01) ==
LOC: EC 08:53
DX: R11.2 Nausea with vomiting, unspecified (principal); R31.9 Hematuria, unspecified; R10.30 Lower abdominal pain, unspecified; K21.9 Gastro-esophageal reflux disease without esophagitis; F31.9 Bipolar disorder, unspecified; F41.0 Panic disorder [episodic paroxysmal anxiety]; Z79.899 Other long term (current) drug therapy
CPT/HCPCS: 99284; 96374; 96375 ×2; 96376; 96361 ×3; 36415; 80053; 82150; 83690; 85025; 81001; 81025; 74018; J2060; J1200; J2405

== ENCOUNTER 2017-08-01 19:46 | Emergency (ER) | payer BC ==
[2017-08-01 20:04] VITALS: RESP 16; TEMP 100.4
[2017-08-01] MEDS ORDERED: diphenhydrAMINE 50 MG/ML 1 ML VIAL IVP STA (20:24)
[2017-08-01] MEDS ORDERED: SODIUM CHLORIDE 0.9% 1,000 ML IV STA (20:24)
[2017-08-01] MEDS ORDERED: LORazepam 2 MG/ML INJ IV STA (20:25)
[2017-08-01] MEDS ORDERED: ONDANSETRON 4 MG/2 ML VIAL IVP STA ×2 (20:25→23:15)
[2017-08-01] MEDS ORDERED: ACETAMINOPHEN IV (For NPO) 1,000 MG in EMPTY BAG 1 BAG IVPB STA (20:29)
--- NOTE | 2017-08-01 20:29 | ED ---
Nausea/Vomiting/Diarrhea HPI - General Chief complaint: Nausea/Vomiting/Diarrhea Stated complaint: Vomiting Time Seen by Provider: 08/01/17 20:15 Source: EMS, RN notes reviewed Mode of arrival: EMS Limitations: no limitations - History of Present Illness Initial comments: This is a 47-year-old female who presents to the emergency department with chief complaint of nausea and vomiting. Patient states that she was diagnosed with cyclic vomiting syndrome. She states that she has episodes of vomiting at least once every 1-2 months. She states that she began vomiting on evening. She states she's been unable to keep down any liquids or food. She was seen here in the emergency department yesterday and was discharged home. Patient states that she has been taking Zofran at home but this does not seem to help. She states that she is usually given Ativan and Benadryl while in the emergency department and this helped subside her symptoms as she gets really worked up when she is vomiting. Patient denies any fevers or chills, chest pain or shortness of breath. She denies any significant abdominal pain. She states her last bowel movement was on Wednesday morning. Patient states that she was diagnosed with hematuria yesterday and was recommended to follow-up with urologist. Denies flank pain. - Related Data Home Medications Medication Instructions Recorded Confirmed ARIPiprazole [Abilify] 15 mg PO HS 01/20/16 07/31/17 Omeprazole [PriLOSEC] 20 mg PO BID 01/20/16 07/31/17 Citalopram Hydrobromide [CeleXA] 20 mg PO HS 02/10/17 07/31/17 Promethazine [Phenergan] 25 mg PO BID PRN 02/12/17 07/31/17 Ondansetron Odt [Zofran ODT] 4 mg PO BID PRN 04/26/17 07/31/17 Previous Rx's Medication Instructions Recorded Famotidine [Pepcid] 20 mg PO BID #20 tablet 07/05/17 Allergies Allergy/AdvReac Type Severity Reaction Status Date / Time metoclopramide [From Reglan] Allergy Unknown Verified 08/01/17 20:04 Review of Systems ROS Statement: Those systems with pertinent positive or pertinent negative responses have been documented in the HPI. ROS Other: All systems not noted in ROS Statement are negative. Past Medical History Past Medical History: GERD/Reflux Additional Past Medical History / Comment(s): states "having heavy periods",HX. GASTRITIS, LOW IRON, intermittent nausea/vomiting for 4 years-unsure of cause, History of Any Multi-Drug Resistant Organisms: None Reported Past Surgical History: No Surgical Hx Reported Additional Past Surgical History / Comment(s): EGD,colonoscopy, Past Anesthesia/Blood Transfusion Reactions: Postoperative Nausea & Vomiting ( PONV) Additional Past Anesthesia/Blood Transfusion Reaction / Comment(s): no hx blood transfusion Past Psychological History: Anxiety, Bipolar, Depression, Panic Disorder Smoking Status: Never smoker Past Alcohol Use History: None Reported Past Drug Use History: Marijuana - Past Family History Mother Family Medical History: No Reported History General Exam - General Exam Comments Initial Comments: General: Awake and alert, well-developed; in no apparent distress. Patient appears disheveled. HEENT: Head atraumatic, normocephalic. Pupils are equal, round and reactive to light. Extraocular movements intact. Oropharynx moist without erythema or exudate. Neck: Supple. Normal ROM. Cardiovascular: Regular rate and rhythm. No murmurs, rubs or gallops. Chest symmetrical. Respiratory: Lungs clear to auscultation bilaterally. No wheezes, rales or rhonchi. Normal respiratory effort with no use of accessory muscles. Abdomen: Soft, non-distended. Generalized tenderness on palpation. No rigidity , rebound or guarding. Normal bowel sounds in all 4 quadrants. Musculoskeletal: Normal ROM, no tenderness bilateral upper and lower extremities. Skin: Rudd, warm and dry without rashes or lesions. Neurological: Alert and oriented x3. CN II-XII grossly intact. Speech is fluent and answers are appropriate. No focal neuro deficits. Psychiatric: Normal mood and affect. No overt signs of depression or anxiety noted. Limitations: no limitations Course Vital Signs 08/01/17 08/01/17 20:01 23:21 Temperature 100.4 F H Pulse Rate 76 71 Respiratory 16 16 Rate Blood Pressure 176/91 171/82 O2 Sat by Pulse 98 98 Oximetry Medical Decision Making - Medical Decision Making This is a 47-year-old female who presents to the emergency department with chief complaint of nausea and vomiting. Patient states that she has cyclic vomiting. She was seen here in the emergency department yesterday for the same thing. She states that she was discharged home with Zofran but that it has not been helping. She states that she continues to have nausea and vomiting and has been unable to keep down any food or drink. Labs were redrawn today. No significant difference from labs drawn yesterday. CBC and CMP are unremarkable. Patient denies any abdominal pain. Abdomen is soft and non- tender on palpation. At this time, patient is resting comfortably in bed. She states that she feels she is ready to go home as her nausea has finally subsided. Patient is in no acute distress. She will be discharged home at this time. She is in agreement and voices understanding. All questions answered. - Lab Data Result diagrams: 08/01/17 22:47 08/01/17 22:47 Lab Results 08/01/17 08/01/17 Range/Units 22:47 22:47 WBC 9.4 (3.8-10.6) k/uL RBC 4.30 (3.80-5.40) m/uL Hgb 9.0 L (11.4-16.0) gm/dL Hct 30.5 L (34.0-46.0) % MCV 71.0 L (80.0-100.0) fL MCH 21.0 L (25.0-35.0) pg MCHC 29.6 L (31.0-37.0) g/dL RDW 18.4 H (11.5-15.5) % Plt Count 458 H (150-450) k/uL Neutrophils % 81 % Lymphocytes % 10 % Monocytes % 7 % Eosinophils % 1 % Basophils % 0 % Neutrophils # 7.6 (1.3-7.7) k/uL Lymphocytes # 0.9 L (1.0-4.8) k/uL Monocytes # 0.6 (0-1.0) k/uL Eosinophils # 0.1 (0-0.7) k/uL Basophils # 0.0 (0-0.2) k/uL Hypochromasia Marked Poikilocytosis Slight Anisocytosis Slight Microcytosis Marked Sodium 143 (137-145) mmol/L Potassium 4.3 (3.5-5.1) mmol/L Chloride 105 (98-107) mmol/L Carbon Dioxide 23 (22-30) mmol/L Anion Gap 15 mmol/L BUN 18 H (7-17) mg/dL Creatinine 0.60 (0.52-1.04) mg/dL Est GFR (CKD-EPI)AfAm >90 (>60 ml/min/1.73 sqM) Est GFR (CKD-EPI)NonAf >90 (>60 ml/min/1.73 sqM) Glucose 117 H (74-99) mg/dL Calcium 9.3 (8.4-10.2) mg/dL Total Bilirubin 0.4 (0.2-1.3) mg/dL AST 33 (14-36) U/L ALT 26 (9-52) U/L Alkaline Phosphatase 44 (38-126) U/L Total Protein 7.7 (6.3-8.2) g/dL Albumin 4.4 (3.5-5.0) g/dL Amylase 77 (30-110) U/L Lipase 42 (23-300) U/L - Radiology Data Radiology results: report reviewed, image reviewed X-ray KUB impression: Unremarkable abdomen. Disposition Clinical Impression: Nausea & vomiting Disposition: HOME SELF-CARE Condition: Good Instructions: Acute Nausea and Vomiting (ED) Additional Instructions: Please follow up with primary care provider within 1-2 days. Return to emergency department if symptoms should worsen or any concerns arise. Is patient prescribed a controlled substance at d/c from ED?: No Referrals: Oren Darden DO [Primary Care Provider] - 1-2 days Time of Disposition: 23:49
--- NOTE | 2017-08-01 22:07 | XR ---
EXAMINATION TYPE: XR KUB DATE OF EXAM: 08/01/2017 COMPARISON: 07/31/2017 INDICATION: Pain nausea vomiting TECHNIQUE: Single view abdomen upright view FINDINGS: No free air is evident. No suspicious air-fluid levels or differential air-fluid levels are present. Psoas margins are normal. No organomegaly is present. Phleboliths within the pelvis. IMPRESSION: 1. Unremarkable Abdomen
[2017-08-01 23:02] LABS: Anisocytosis Slight; Basophils % (A) 0 %; Eosinophils # (A) 0.1 k/uL (0-0.7); Eosinophils % (A) 1 %; HCT 30.5 % (34.0-46.0); Hypochromasia Marked; Lymphocytes # (A) 0.9 k/uL (1.0-4.8); Lymphocytes % (A) 10 %; MCHC 29.6 g/dL (31.0-37.0); Mean Platelet Volume 6.3; Microcytosis Marked; Monocytes # (A) 0.6 k/uL (0-1.0); Monocytes % (A) 7 %; Neutrophils # (A) 7.6 k/uL (1.3-7.7); Neutrophils % (A) 81 %; Platelet Count 458 k/uL (150-450); Poikilocytosis Slight; RDW 18.4 % (11.5-15.5); WBC 9.4 k/uL (3.8-10.6)
[2017-08-01 23:13] LABS: ALT 26 U/L (9-52); AST 33 U/L (14-36); Albumin 4.4 g/dL (3.5-5.0); Alkaline Phosphatase 44 U/L (38-126); Amylase 77 U/L (30-110); Anion Gap 15 mmol/L; Blood Urea Nitrogen 18 mg/dL (7-17); Calcium 9.3 mg/dL (8.4-10.2); Carbon Dioxide 23 mmol/L (22-30); Chloride 105 mmol/L (98-107); Glucose 117 mg/dL (74-99); Lipase 42 U/L (23-300); Sodium 143 mmol/L (137-145); Total Bilirubin 0.4 mg/dL (0.2-1.3); Total Protein 7.7 g/dL (6.3-8.2)
[2017-08-01 23:14] LABS: Potassium 4.3 mmol/L (3.5-5.1)
[2017-08-01 23:23] VITALS: BP 171/82; PULSE 71
== END 2017-08-02 00:10 | disposition home or self-care (01) ==
LOC: EC 19:46
DX: R11.2 Nausea with vomiting, unspecified (principal); R10.84 Generalized abdominal pain; K21.9 Gastro-esophageal reflux disease without esophagitis; F31.9 Bipolar disorder, unspecified; F41.9 Anxiety disorder, unspecified; F41.0 Panic disorder [episodic paroxysmal anxiety]
CPT/HCPCS: 36415; 80053; 82150; 83690; 85025; 74018; 99284; 96374; 96375 ×3; 96376; 96361; J2060; J1200; J2405; J0131

== ENCOUNTER 2017-08-06 12:22 | Emergency (ER) | payer BC ==
[2017-08-06 12:38] VITALS: PULSE 68; RESP 18
[2017-08-06] MEDS ORDERED: diphenhydrAMINE 50 MG/ML 1 ML VIAL IVP STA (12:54)
[2017-08-06] MEDS ORDERED: SODIUM CHLORIDE 0.9% 2,000 ML IV STA (12:54)
[2017-08-06] MEDS ORDERED: PROMETHAZINE INJ 25 MG in SODIUM CHLORIDE 0.9% 50 ML IVPB STA (12:58)
--- NOTE | 2017-08-06 13:19 | ED ---
Nausea/Vomiting/Diarrhea HPI - General Chief complaint: Nausea/Vomiting/Diarrhea Stated complaint: Vomitting Time Seen by Provider: 08/06/17 12:50 Source: patient, family, RN notes reviewed Mode of arrival: ambulatory Limitations: no limitations - History of Present Illness Initial comments: 47-year-old female presents emergency Department chief complaint of nausea vomiting. Patient states symptoms started yesterday. Patient has been in the hospital/ER several times this week and within the last month. Patient states that she has been told she has cyclic vomiting. Patient states that she's been taking her antiemetics at home but is not helping. Patient denies any hematemesis or coffee-ground emesis. Denies fever, chills, dysuria, diarrhea, constipation. Patient's GI doctor is Dr. Elaine. Patient has had no recent studies. Patient is a daily marijuana user. - Related Data Home Medications Medication Instructions Recorded Confirmed ARIPiprazole [Abilify] 15 mg PO HS 01/20/16 08/06/17 Citalopram Hydrobromide [CeleXA] 20 mg PO HS 02/10/17 08/06/17 Previous Rx's Medication Instructions Recorded Ondansetron Odt [Zofran Odt] 4 mg PO Q8HR PRN #12 tab 08/02/17 Promethazine Suppository 25 mg RECTAL QID PRN #20 supp 08/06/17 [Phenergan] Allergies Allergy/AdvReac Type Severity Reaction Status Date / Time metoclopramide [From Reglan] Allergy Unknown Verified 08/06/17 12:46 Review of Systems ROS Statement: Those systems with pertinent positive or pertinent negative responses have been documented in the HPI. ROS Other: All systems not noted in ROS Statement are negative. Past Medical History Past Medical History: GERD/Reflux Additional Past Medical History / Comment(s): states "having heavy periods",HX. GASTRITIS, LOW IRON, intermittent nausea/vomiting for 4 years-unsure of cause, History of Any Multi-Drug Resistant Organisms: None Reported Past Surgical History: No Surgical Hx Reported Additional Past Surgical History / Comment(s): EGD,colonoscopy, Past Anesthesia/Blood Transfusion Reactions: Postoperative Nausea & Vomiting ( PONV) Additional Past Anesthesia/Blood Transfusion Reaction / Comment(s): no hx blood transfusion Past Psychological History: Anxiety, Bipolar, Depression, Panic Disorder Smoking Status: Never smoker Past Alcohol Use History: None Reported Past Drug Use History: Marijuana - Past Family History Mother Family Medical History: No Reported History General Exam Limitations: no limitations General appearance: alert, in no apparent distress Head exam: Present: atraumatic, normocephalic, normal inspection Eye exam: Present: normal appearance, PERRL, EOMI. Absent: scleral icterus, conjunctival injection, periorbital swelling ENT exam: Present: normal exam, normal oropharynx, mucous membranes moist Neck exam: Present: normal inspection, full ROM. Absent: tenderness, meningismus, lymphadenopathy Respiratory exam: Present: normal lung sounds bilaterally. Absent: respiratory distress, wheezes, rales, rhonchi, stridor Cardiovascular Exam: Present: regular rate, normal rhythm, normal heart sounds. Absent: systolic murmur, diastolic murmur, rubs, gallop, clicks GI/Abdominal exam: Present: soft, tenderness (Mild diffuse), normal bowel sounds. Absent: distended, guarding, rebound, rigid Back exam: Absent: CVA tenderness (R), CVA tenderness (L) Course Vital Signs 08/06/17 12:36 Temperature 98.6 F Pulse Rate 68 Respiratory 18 Rate Blood Pressure 132/96 O2 Sat by Pulse 99 Oximetry Medical Decision Making - Medical Decision Making 47-year-old female presented emergency from for nausea vomiting. Patient has a history of cyclic vomiting. Patient had lab work and hydration, antiemetics and feels improved. We did have a discussion that this may be induced by her marijuana use. Patient advised to discontinue marijuana use and to see if symptoms improve. Patient will follow-up with her GI physician and return for any worsening symptoms. - Lab Data Result diagrams: 08/06/17 14:10 08/06/17 14:10 Lab Results 08/06/17 08/06/17 08/06/17 Range/Units 14:10 14:10 15:15 WBC 8.5 (3.8-10.6) k/uL RBC 4.59 (3.80-5.40) m/uL Hgb 9.4 L (11.4-16.0) gm/dL Hct 32.5 L (34.0-46.0) % MCV 70.9 L (80.0-100.0) fL MCH 20.5 L (25.0-35.0) pg MCHC 28.9 L (31.0-37.0) g/dL RDW 17.7 H (11.5-15.5) % Plt Count 545 H (150-450) k/uL Neutrophils % 67 % Lymphocytes % 21 % Monocytes % 8 % Eosinophils % 1 % Basophils % 1 % Neutrophils # 5.7 (1.3-7.7) k/uL Lymphocytes # 1.8 (1.0-4.8) k/uL Monocytes # 0.7 (0-1.0) k/uL Eosinophils # 0.0 (0-0.7) k/uL Basophils # 0.1 (0-0.2) k/uL Hypochromasia Marked Anisocytosis Slight Microcytosis Marked Sodium 136 L (137-145) mmol/L Potassium 3.6 (3.5-5.1) mmol/L Chloride 96 L (98-107) mmol/L Carbon Dioxide 29 (22-30) mmol/L Anion Gap 11 mmol/L BUN 9 (7-17) mg/dL Creatinine 0.60 (0.52-1.04) mg/dL Est GFR (CKD-EPI)AfAm >90 (>60 ml/min/1.73 sqM) Est GFR (CKD-EPI)NonAf >90 (>60 ml/min/1.73 sqM) Glucose 96 (74-99) mg/dL Calcium 9.6 (8.4-10.2) mg/dL Total Bilirubin 0.5 (0.2-1.3) mg/dL AST 18 (14-36) U/L ALT 26 (9-52) U/L Alkaline Phosphatase 42 (38-126) U/L Total Protein 7.2 (6.3-8.2) g/dL Albumin 4.5 (3.5-5.0) g/dL Amylase 58 (30-110) U/L Lipase 48 (23-300) U/L Urine Color Colorless Urine Appearance Clear (Clear) Urine pH 7.0 (5.0-8.0) Ur Specific Buck[place] 1.000 L (1.001-1.035) Urine Protein Negative (Negative) Urine Glucose (UA) Negative (Negative) Urine Ketones Negative (Negative) Urine Blood Small H (Negative) Urine Nitrite Negative (Negative) Urine Bilirubin Negative (Negative) Urine Urobilinogen <2.0 (<2.0) mg/dL Ur Leukocyte Esterase Negative (Negative) Urine WBC 1 (0-5) /hpf Ur Squamous Epith Cells <1 (0-4) /hpf Urine Bacteria Rare H (None) /hpf Disposition Clinical Impression: Nausea & vomiting Disposition: HOME SELF-CARE Condition: Stable Instructions: Acute Nausea and Vomiting (ED) Additional Instructions: Please return to the Emergency Department if symptoms worsen or any other concerns. Prescriptions: Promethazine Suppository [Phenergan] 25 mg RECTAL QID PRN #20 supp PRN Reason: Nausea Is patient prescribed a controlled substance at d/c from ED?: No Referrals: Oren Darden DO [Primary Care Provider] - 1-2 days
[2017-08-06 14:24] LABS: Anisocytosis Slight; Basophils # (A) 0.1 k/uL (0-0.2); Basophils % (A) 1 %; Eosinophils % (A) 1 %; HCT 32.5 % (34.0-46.0); HGB 9.4 gm/dL (11.4-16.0); Hypochromasia Marked; Lymphocytes # (A) 1.8 k/uL (1.0-4.8); Lymphocytes % (A) 21 %; MCH 20.5 pg (25.0-35.0); MCHC 28.9 g/dL (31.0-37.0); MCV 70.9 fL (80.0-100.0); Microcytosis Marked; Monocytes # (A) 0.7 k/uL (0-1.0); Monocytes % (A) 8 %; Neutrophils # (A) 5.7 k/uL (1.3-7.7); Neutrophils % (A) 67 %; Platelet Count 545 k/uL (150-450); RBC 4.59 m/uL (3.80-5.40); RDW 17.7 % (11.5-15.5); WBC 8.5 k/uL (3.8-10.6)
[2017-08-06 14:37] LABS: ALT 26 U/L (9-52); AST 18 U/L (14-36); Albumin 4.5 g/dL (3.5-5.0); Alkaline Phosphatase 42 U/L (38-126); Amylase 58 U/L (30-110); Anion Gap 11 mmol/L; Blood Urea Nitrogen 9 mg/dL (7-17); Calcium 9.6 mg/dL (8.4-10.2); Carbon Dioxide 29 mmol/L (22-30); Chloride 96 mmol/L (98-107); Glucose 96 mg/dL (74-99); Lipase 48 U/L (23-300); Potassium 3.6 mmol/L (3.5-5.1); Sodium 136 mmol/L (137-145); Total Bilirubin 0.5 mg/dL (0.2-1.3); Total Protein 7.2 g/dL (6.3-8.2)
[2017-08-06 15:35] LABS: Appearance,Urine Clear (Clear); Bacteria,Urine Rare /hpf; Bilirubin,Urine Negative (Negative); Blood,Urine Small (Negative); Color,Urine Colorless; Glucose,Urine (UA) Negative (Negative); Ketones,Urine Negative (Negative); Leukocyte Esterase,Urine Negative (Negative); Nitrite,Urine Negative (Negative); Protein,Urine Negative (Negative); Squamous Epithelial Cell,Urine <1 /hpf (0-4); Urobilinogen,Urine <2.0 mg/dL (<2.0); WBC,Urine 1 /hpf (0-5)
[2017-08-06 16:26] VITALS: BP 165/95; TEMP 98.8
== END 2017-08-06 16:27 | disposition home or self-care (01) ==
LOC: EC 12:22
DX: R11.2 Nausea with vomiting, unspecified (principal); F41.9 Anxiety disorder, unspecified; F32.9 Major depressive disorder, single episode, unspecified; F43.10 Post-traumatic stress disorder, unspecified; Z79.899 Other long term (current) drug therapy; Z88.8 Allergy status to other drugs, medicaments and biological substances
CPT/HCPCS: 99284; 96374; 96375; 96361 ×2; 36415; 80053; 82150; 83690; 85025; 81001; J1200; J2550

== ENCOUNTER → 2017-08-18 | Outpatient (CLI) | payer BC ==
--- NOTE | 2017-08-18 10:50 | FL ---
EXAMINATION TYPE: FL small bowel follow through DATE OF EXAM: 08/18/2017 COMPARISON: NONE HISTORY: Anemia, abdominal discomfort nausea vomiting TECHNIQUE: Bilingual Inside Sales Representative film is obtained. Overhead radiographs were obtained. Spot imaging real-time observa tion was performed FINDINGS: Bilingual Inside Sales Representative: Some fecal debris is in the descending colon. Psoas margins are normal. Bilingual Inside Sales Representative images otherwise noncontributory 3 overhead radiographs were obtained over the stomach and proximal duodenum. No obvious defects are e vident. Barium readily empties into the normally positioned duodenal cap and sweep. Ligament of Treit z is normal. Small bowel follow-through: Transit time to the colon is 40 minutes. Ileocecal and jejunal fold patte rn appears normal. No mass effect is evident. No fixed loops of bowel are evident. No intraluminal or extramural defects are evident. Patient indicates some tenderness with palpation over the left midab domen. Loops of bowel in this region appeared unremarkable. Fluoroscopic imaging of the terminal ileum is unremarkable. The appendix is not identified. IMPRESSION: 1. Essentially normal small bowel follow-through. Transit time to the colon is 40 minutes.
== END ==
LOC: RADFLMAIN 08:59
PROVIDERS: ATTEND Internal Medicine Gastroenterology
DX: D64.9 Anemia, unspecified (principal)
CPT/HCPCS: 74250

== ENCOUNTER 2017-08-30 16:12 | Emergency (ER) | payer BC ==
[2017-08-30] MEDS ORDERED: ONDANSETRON 4 MG/2 ML VIAL IVP STA (19:26)
[2017-08-30] MEDS ORDERED: diphenhydrAMINE 50 MG/ML 1 ML VIAL IVP STA (19:26)
[2017-08-30] MEDS ORDERED: SODIUM CHLORIDE 0.9% 1,000 ML IV STA (19:26)
[2017-08-30] MEDS ORDERED: LORazepam 2 MG/ML INJ IV STA (19:26)
[2017-08-30] MEDS ORDERED: FAMOTIDINE 20 MG/2 ML VIAL IV STA (19:26)
--- NOTE | 2017-08-30 19:29 | ED ---
Nausea/Vomiting/Diarrhea HPI - General Chief complaint: Nausea/Vomiting/Diarrhea Stated complaint: Vomiting Time Seen by Provider: 08/30/17 19:18 Source: patient, RN notes reviewed Mode of arrival: wheelchair Limitations: no limitations - History of Present Illness Initial comments: This is a 47-year-old female with history of cyclic vomiting syndrome who presents to the emergency department with chief complaint of nausea and vomiting. Patient states that she has been vomiting since . She states her last bowel movement was on but states that she has not been eating. She admits to generalized abdominal discomfort. Denies fevers or chills, chest pain or shortness of breath, diarrhea. Patient states that she has been seen in the emergency department multiple times with nausea and vomiting. She states that her symptoms are relieved with Pepcid, Benadryl, Zofran and Ativan. - Related Data Home Medications Medication Instructions Recorded Confirmed ARIPiprazole [Abilify] 15 mg PO DAILY 01/20/16 08/30/17 Citalopram Hydrobromide [CeleXA] 20 mg PO DAILY 02/10/17 08/30/17 Omeprazole [PriLOSEC] 20 mg PO AC-BID 08/30/17 08/30/17 Ondansetron Odt [Zofran Odt] 4 mg PO BID PRN 08/30/17 08/30/17 Previous Rx's Medication Instructions Recorded Promethazine Suppository 25 mg RECTAL QID PRN #20 supp 08/06/17 [Phenergan] Allergies Allergy/AdvReac Type Severity Reaction Status Date / Time metoclopramide [From Reglan] Allergy Unknown Verified 08/30/17 19:20 Review of Systems ROS Statement: Those systems with pertinent positive or pertinent negative responses have been documented in the HPI. ROS Other: All systems not noted in ROS Statement are negative. Past Medical History Past Medical History: GERD/Reflux Additional Past Medical History / Comment(s): states "having heavy periods",HX. GASTRITIS, LOW IRON, intermittent nausea/vomiting for 4 years-unsure of cause, History of Any Multi-Drug Resistant Organisms: None Reported Past Surgical History: No Surgical Hx Reported Additional Past Surgical History / Comment(s): EGD,colonoscopy, Past Anesthesia/Blood Transfusion Reactions: Postoperative Nausea & Vomiting ( PONV) Additional Past Anesthesia/Blood Transfusion Reaction / Comment(s): no hx blood transfusion Past Psychological History: Anxiety, Bipolar, Depression, Panic Disorder Smoking Status: Never smoker Past Alcohol Use History: None Reported Past Drug Use History: None Reported - Past Family History Mother Family Medical History: No Reported History General Exam - General Exam Comments Initial Comments: General: Awake and alert, well-developed; in no apparent distress. Lying in the position on ED stretcher with a basin of vomitus at bedside. HEENT: Head atraumatic, normocephalic. Pupils are equal, round and reactive to light. Extraocular movements intact. Oropharynx moist without erythema or exudate. Neck: Supple. Normal ROM. Cardiovascular: Regular rate and rhythm. No murmurs, rubs or gallops. Chest symmetrical. Respiratory: Lungs clear to auscultation bilaterally. No wheezes, rales or rhonchi. Normal respiratory effort with no use of accessory muscles. Abdomen: Soft, non-tender, non-distended. No rigidity, rebound or guarding. Normal bowel sounds in all 4 quadrants. Musculoskeletal: Normal ROM, no tenderness bilateral upper and lower extremities. Ambulating normally. Skin: [place], warm and dry without rashes or lesions. Neurological: Alert and oriented x3. CN II-XII grossly intact. Speech is fluent and answers are appropriate. No focal neuro deficits. Psychiatric: Normal mood and affect. No overt signs of depression or anxiety noted. Limitations: no limitations Course Vital Signs 08/30/17 08/30/17 16:35 21:31 Temperature 98 F 97.7 F Pulse Rate 90 78 Respiratory 18 16 Rate Blood Pressure 156/94 150/90 O2 Sat by Pulse 99 100 Oximetry Medical Decision Making - Medical Decision Making This is a 47-year-old female presents to the emergency department with chief complaint of nausea and vomiting. Patient reports a history of cyclic vomiting syndrome. She states she has been seen here multiple times in the emergency department for IV medications. CBC and CMP were unremarkable. Patient was given IV fluids and antiemetics while in the emergency department. Patient is no longer having episodes of vomiting and states that she feels well enough and would like to be discharged home at this time. Vital signs are stable and patient is in no acute distress. She'll be discharged home. Recommended clear fluids and bland diet. Patient is in agreement with plan and voices understanding. All questions answered. - Lab Data Result diagrams: 08/30/17 20:38 08/30/17 20:38 Lab Results 08/30/17 08/30/17 Range/Units 20:38 20:38 WBC 10.6 (3.8-10.6) k/uL RBC 5.03 (3.80-5.40) m/uL Hgb 10.7 L (11.4-16.0) gm/dL Hct 35.1 (34.0-46.0) % MCV 69.8 L (80.0-100.0) fL MCH 21.3 L (25.0-35.0) pg MCHC 30.5 L (31.0-37.0) g/dL RDW 19.2 H (11.5-15.5) % Plt Count 522 H (150-450) k/uL Neutrophils % 78 % Lymphocytes % 11 % Monocytes % 9 % Eosinophils % 1 % Basophils % 0 % Neutrophils # 8.3 H (1.3-7.7) k/uL Lymphocytes # 1.1 (1.0-4.8) k/uL Monocytes # 1.0 (0-1.0) k/uL Eosinophils # 0.1 (0-0.7) k/uL Basophils # 0.0 (0-0.2) k/uL Hypochromasia Marked Anisocytosis Slight Microcytosis Marked Sodium 138 (137-145) mmol/L Potassium 4.7 (3.5-5.1) mmol/L Chloride 96 L (98-107) mmol/L Carbon Dioxide 28 (22-30) mmol/L Anion Gap 14 mmol/L BUN 19 H (7-17) mg/dL Creatinine 0.60 (0.52-1.04) mg/dL Est GFR (CKD-EPI)AfAm >90 (>60 ml/min/1.73 sqM) Est GFR (CKD-EPI)NonAf >90 (>60 ml/min/1.73 sqM) Glucose 114 H (74-99) mg/dL Calcium 10.2 (8.4-10.2) mg/dL Total Bilirubin 0.6 (0.2-1.3) mg/dL AST 28 (14-36) U/L ALT 24 (9-52) U/L Alkaline Phosphatase 43 (38-126) U/L Total Protein 8.4 H (6.3-8.2) g/dL Albumin 5.1 H (3.5-5.0) g/dL Amylase 67 (30-110) U/L Lipase 58 (23-300) U/L Disposition Clinical Impression: Nausea & vomiting Disposition: HOME SELF-CARE Condition: Good Instructions: Acute Nausea and Vomiting (ED) Additional Instructions: Please follow up with primary care provider within 1-2 days. Return to emergency department if symptoms should worsen or any concerns arise. Is patient prescribed a controlled substance at d/c from ED?: No Referrals: Oren Darden DO [Primary Care Provider] - 1-2 days Time of Disposition: 22:13
[2017-08-30 20:49] LABS: Anisocytosis Slight; Basophils % (A) 0 %; Eosinophils # (A) 0.1 k/uL (0-0.7); Eosinophils % (A) 1 %; HCT 35.1 % (34.0-46.0); HGB 10.7 gm/dL (11.4-16.0); Hypochromasia Marked; Lymphocytes # (A) 1.1 k/uL (1.0-4.8); Lymphocytes % (A) 11 %; MCH 21.3 pg (25.0-35.0); MCHC 30.5 g/dL (31.0-37.0); MCV 69.8 fL (80.0-100.0); Mean Platelet Volume 7.5; Microcytosis Marked; Monocytes % (A) 9 %; Neutrophils # (A) 8.3 k/uL (1.3-7.7); Neutrophils % (A) 78 %; Platelet Count 522 k/uL (150-450); RBC 5.03 m/uL (3.80-5.40); RDW 19.2 % (11.5-15.5); WBC 10.6 k/uL (3.8-10.6)
[2017-08-30 21:01] LABS: ALT 24 U/L (9-52); AST 28 U/L (14-36); Albumin 5.1 g/dL (3.5-5.0); Alkaline Phosphatase 43 U/L (38-126); Amylase 67 U/L (30-110); Anion Gap 14 mmol/L; Blood Urea Nitrogen 19 mg/dL (7-17); Calcium 10.2 mg/dL (8.4-10.2); Carbon Dioxide 28 mmol/L (22-30); Chloride 96 mmol/L (98-107); Glucose 114 mg/dL (74-99); Lipase 58 U/L (23-300); Potassium 4.7 mmol/L (3.5-5.1); Sodium 138 mmol/L (137-145); Total Bilirubin 0.6 mg/dL (0.2-1.3); Total Protein 8.4 g/dL (6.3-8.2)
[2017-08-30] MEDS ORDERED: FAMOTIDINE 20 MG TAB PO STA (22:06)
[2017-08-30 22:51] VITALS: BP 144/74; PULSE 77; RESP 18; TEMP 97
== END 2017-08-30 22:51 | disposition home or self-care (01) ==
LOC: EC 16:12
DX: R11.2 Nausea with vomiting, unspecified (principal); K21.9 Gastro-esophageal reflux disease without esophagitis; F31.9 Bipolar disorder, unspecified; F41.0 Panic disorder [episodic paroxysmal anxiety]; Z79.899 Other long term (current) drug therapy; Z88.8 Allergy status to other drugs, medicaments and biological substances
CPT/HCPCS: 36415; 80053; 82150; 83690; 85025; 99284; 96374; 96375 ×3; 96361; J2060; J1200; J2405

== ENCOUNTER 2017-09-01 18:38 | Emergency (ER) | payer BC ==
[2017-09-01 19:24] VITALS: RESP 18
[2017-09-01] MEDS ORDERED: SODIUM CHLORIDE 0.9% 2,000 ML IV STA (20:02)
[2017-09-01] MEDS ORDERED: ONDANSETRON 4 MG/2 ML VIAL IVP STA ×2 (20:02→22:19)
[2017-09-01] MEDS ORDERED: FAMOTIDINE 20 MG/2 ML VIAL IV STA (20:03)
[2017-09-01] MEDS ORDERED: LORazepam 2 MG/ML INJ IV STA (20:03)
[2017-09-01] MEDS ORDERED: diphenhydrAMINE 50 MG/ML 1 ML VIAL IVP STA (20:03)
[2017-09-01 20:05] VITALS: TEMP 98.6
--- NOTE | 2017-09-01 20:06 | ED ---
General Adult HPI - General Chief complaint: Nausea/Vomiting/Diarrhea Stated complaint: VOMITING, ABDOMINAL PAIN Time Seen by Provider: 09/01/17 19:58 Source: patient, RN notes reviewed Mode of arrival: wheelchair Limitations: no limitations - History of Present Illness Initial comments: Patient 7-year-old female significant past medical history for cyclic vomiting syndrome, presented to the emergency department today with a chief complaint of symptoms of nausea vomiting over the last 6 days. Patient does admit that she was seen recently 2 days ago for the same. States still having a difficult time keeping anything down at home. Admits to painful locally in the abdomen consistent with her cyclic vomiting. She denies anything different or new. Denies any other complaints or symptoms at this time. Patient denies any recent fever, chills, shortness of breath, chest pain, back pain, numbness or tingling , dysuria or hematuria, constipation, headaches or visual changes, or any other complaints. - Related Data Home Medications Medication Instructions Recorded Confirmed ARIPiprazole [Abilify] 15 mg PO DAILY 01/20/16 09/01/17 Citalopram Hydrobromide [CeleXA] 20 mg PO DAILY 02/10/17 09/01/17 Omeprazole [PriLOSEC] 20 mg PO AC-BID 08/30/17 09/01/17 Ondansetron Odt [Zofran Odt] 4 mg PO BID PRN 08/30/17 09/01/17 Previous Rx's Medication Instructions Recorded Promethazine Suppository 25 mg RECTAL QID PRN #20 supp 08/06/17 [Phenergan] Ondansetron Odt [Zofran ODT] 4 mg PO Q8HR PRN #20 tab 09/01/17 Allergies Allergy/AdvReac Type Severity Reaction Status Date / Time metoclopramide [From Reglan] AdvReac Nausea & Verified 09/01/17 19:56 Vomiting Review of Systems ROS Statement: Those systems with pertinent positive or pertinent negative responses have been documented in the HPI. ROS Other: All systems not noted in ROS Statement are negative. Past Medical History Past Medical History: GERD/Reflux Additional Past Medical History / Comment(s): states "having heavy periods",HX. GASTRITIS, LOW IRON, intermittent nausea/vomiting for 4 years-unsure of cause, cyclic vomiting. History of Any Multi-Drug Resistant Organisms: None Reported Past Surgical History: No Surgical Hx Reported Additional Past Surgical History / Comment(s): EGD,colonoscopy, Past Anesthesia/Blood Transfusion Reactions: Postoperative Nausea & Vomiting ( PONV) Additional Past Anesthesia/Blood Transfusion Reaction / Comment(s): no hx blood transfusion Past Psychological History: Anxiety, Bipolar, Depression, Panic Disorder Smoking Status: Never smoker Past Alcohol Use History: None Reported Past Drug Use History: None Reported - Past Family History Mother Family Medical History: No Reported History General Exam - General Exam Comments Initial Comments: General: The patient is awake and alert, mild discomfort Eye: Pupils are equal, round and reactive to light, extra-ocular movements are intact. No nystagmus. There is normal conjunctiva bilaterally. No signs of icterus. Ears, nose, mouth and throat: There are moist mucous membranes and no oral lesions. Neck: The neck is supple, there is no tenderness or JVD. Cardiovascular: There is a regular rate and rhythm. No murmur, rub or gallop is appreciated. Respiratory: Lungs are clear to auscultation, respirations are non-labored, breath sounds are equal. No wheezes, stridor, rales, or rhonchi. Gastrointestinal: Mild tenderness epigastric. No rebound tenderness. No guarding. No CVA tenderness. Musculoskeletal: Normal ROM, no tenderness. Strength 5/5. Sensation intact. Pulses equal bilaterally 2+. Neurological: A&O x 3. CN II-XII intact, There are no obvious motor or sensory deficits. Coordination appears grossly intact. Speech is normal. Skin: Skin is warm and dry and no rashes or lesions are noted. Psychiatric: Cooperative, appropriate mood & affect, normal judgment. Limitations: no limitations Course Vital Signs 09/01/17 09/01/17 19:22 20:01 Temperature 98.2 F 98.6 F Pulse Rate 82 74 Respiratory 18 18 Rate Blood Pressure 168/97 174/85 O2 Sat by Pulse 96 97 Oximetry Medical Decision Making - Medical Decision Making Patient reexamined at this time shows no signs of distress. Patient feeling better here in the emergency room. Patient labs compared to previous showing no changes. Patient states symptoms are consistent with her cyclic vomiting that she's had in the past. Patient will be discharged home to follow-up family doctor over the next 2 days. - Lab Data Result diagrams: 09/01/17 20:20 09/01/17 20:20 Lab Results 09/01/17 09/01/17 Range/Units 20:20 20:20 WBC 7.4 (3.8-10.6) k/uL RBC 4.85 (3.80-5.40) m/uL Hgb 10.4 L (11.4-16.0) gm/dL Hct 34.6 (34.0-46.0) % MCV 71.3 L (80.0-100.0) fL MCH 21.4 L (25.0-35.0) pg MCHC 30.0 L (31.0-37.0) g/dL RDW 19.0 H (11.5-15.5) % Plt Count 622 H (150-450) k/uL Neutrophils % 74 % Lymphocytes % 15 % Monocytes % 8 % Eosinophils % 1 % Basophils % 0 % Neutrophils # 5.5 (1.3-7.7) k/uL Lymphocytes # 1.1 (1.0-4.8) k/uL Monocytes # 0.6 (0-1.0) k/uL Eosinophils # 0.1 (0-0.7) k/uL Basophils # 0.0 (0-0.2) k/uL Hypochromasia Marked Anisocytosis Slight Microcytosis Marked Sodium 137 (137-145) mmol/L Potassium 3.6 (3.5-5.1) mmol/L Chloride 99 (98-107) mmol/L Carbon Dioxide 25 (22-30) mmol/L Anion Gap 13 mmol/L BUN 11 (7-17) mg/dL Creatinine 0.60 (0.52-1.04) mg/dL Est GFR (CKD-EPI)AfAm >90 (>60 ml/min/1.73 sqM) Est GFR (CKD-EPI)NonAf >90 (>60 ml/min/1.73 sqM) Glucose 115 H (74-99) mg/dL Calcium 9.9 (8.4-10.2) mg/dL Total Bilirubin 0.5 (0.2-1.3) mg/dL AST 18 (14-36) U/L ALT 24 (9-52) U/L Alkaline Phosphatase 45 (38-126) U/L Total Protein 7.7 (6.3-8.2) g/dL Albumin 4.7 (3.5-5.0) g/dL Amylase 65 (30-110) U/L Lipase 56 (23-300) U/L Disposition Clinical Impression: Nausea & vomiting Disposition: HOME SELF-CARE Condition: Good Instructions: Acute Nausea and Vomiting (ED) Additional Instructions: Please use medication as discussed. Please follow-up with family doctor in the next 2 days of symptoms have not improved. Please return to emergency room if the symptoms increase or worsen or for any other concerns. Prescriptions: Ondansetron Odt [Zofran ODT] 4 mg PO Q8HR PRN #20 tab PRN Reason: Nausea Is patient prescribed a controlled substance at d/c from ED?: No Referrals: Oren Darden DO [Primary Care Provider] - 1-2 days Time of Disposition: 22:21
[2017-09-01 20:25] LABS: Anisocytosis Slight; Basophils % (A) 0 %; Eosinophils # (A) 0.1 k/uL (0-0.7); Eosinophils % (A) 1 %; HCT 34.6 % (34.0-46.0); HGB 10.4 gm/dL (11.4-16.0); Hypochromasia Marked; Lymphocytes # (A) 1.1 k/uL (1.0-4.8); Lymphocytes % (A) 15 %; MCH 21.4 pg (25.0-35.0); MCV 71.3 fL (80.0-100.0); Mean Platelet Volume 6.2; Microcytosis Marked; Monocytes # (A) 0.6 k/uL (0-1.0); Monocytes % (A) 8 %; Neutrophils # (A) 5.5 k/uL (1.3-7.7); Neutrophils % (A) 74 %; Platelet Count 622 k/uL (150-450); RBC 4.85 m/uL (3.80-5.40); WBC 7.4 k/uL (3.8-10.6)
[2017-09-01 20:45] LABS: ALT 24 U/L (9-52); AST 18 U/L (14-36); Albumin 4.7 g/dL (3.5-5.0); Alkaline Phosphatase 45 U/L (38-126); Amylase 65 U/L (30-110); Anion Gap 13 mmol/L; Blood Urea Nitrogen 11 mg/dL (7-17); Calcium 9.9 mg/dL (8.4-10.2); Carbon Dioxide 25 mmol/L (22-30); Chloride 99 mmol/L (98-107); Glucose 115 mg/dL (74-99); Lipase 56 U/L (23-300); Potassium 3.6 mmol/L (3.5-5.1); Sodium 137 mmol/L (137-145); Total Bilirubin 0.5 mg/dL (0.2-1.3); Total Protein 7.7 g/dL (6.3-8.2)
[2017-09-01 22:47] VITALS: BP 140/88; PULSE 81
== END 2017-09-01 23:34 | disposition home or self-care (01) ==
LOC: EC 18:38
DX: R11.2 Nausea with vomiting, unspecified (principal); R10.9 Unspecified abdominal pain; K21.9 Gastro-esophageal reflux disease without esophagitis; F31.9 Bipolar disorder, unspecified; F41.9 Anxiety disorder, unspecified; Z79.899 Other long term (current) drug therapy; Z88.8 Allergy status to other drugs, medicaments and biological substances
CPT/HCPCS: 36415; 80053; 82150; 83690; 85025; 99284; 96374; 96375 ×3; 96376; 96361 ×2; J2060; J1200; J2405

== ENCOUNTER → 2019-02-06 | Outpatient (CLI) | payer BC ==
[2019-02-06 12:11] LABS: Anisocytosis Slight; Basophils # (A) 0.1 k/uL (0-0.2); Basophils % (A) 1 %; Eosinophils # (A) 0.2 k/uL (0-0.7); Eosinophils % (A) 3 %; HCT 40.2 % (34.0-46.0); HGB 12.6 gm/dL (11.4-16.0); Lymphocytes # (A) 1.5 k/uL (1.0-4.8); Lymphocytes % (A) 24 %; MCH 29.9 pg (25.0-35.0); MCHC 31.2 g/dL (31.0-37.0); MCV 95.6 fL (80.0-100.0); Mean Platelet Volume 6.6; Monocytes # (A) 0.5 k/uL (0-1.0); Monocytes % (A) 8 %; Neutrophils # (A) 3.7 k/uL (1.3-7.7); Neutrophils % (A) 60 %; Platelet Count 298 k/uL (150-450); RDW 17.2 % (11.5-15.5); WBC 6.1 k/uL (3.8-10.6)
[2019-02-06 13:12] LABS: Erythrocyte Sedimentation Rate 5 mm/hr (0-20)
[2019-02-06 16:57] LABS: % Iron Saturation 16.72 (12.00-45.00); African American GFR (CKD) 120.4 (60.0-200.0); Anion Gap 5.1 mmol/L (4.00-12.00); Calcium 9.2 mg/dL (8.7-10.3); Carbon Dioxide 26.9 mmol/L (21.6-31.8); Non-African American GFR(CKD) 103.9 (60.0-200.0); Potassium 4.6 mmol/L (3.5-5.5)
[2019-02-06 17:05] LABS: Ferritin 84.4 ng/mL (10.0-291.0)
== END | disposition home or self-care (01) ==
LOC: LABWHC1 10:37
PROVIDERS: ATTEND Nurse Practitioner
DX: K62.5 Hemorrhage of anus and rectum (principal)
CPT/HCPCS: 36415; 80048; 82728; 83540; 83550; 85025; 85652

== ENCOUNTER → 2019-02-06 | Outpatient (CLI) | payer BC ==
--- NOTE | 2019-02-06 11:33 | FL ---
EXAMINATION TYPE: FL small bowel follow through DATE OF EXAM: 02/06/2019 CLINICAL HISTORY: Persistent bright red rectal bleeding worsening in severity over last 3 months. His tory of hemorrhoids. Bleeding not suspected related to hemorrhoids however. TECHNIQUE: A single contrast small bowel follow through is performed utilizing barium. A total of 33 seconds of fluoroscopic time was utilized during procedure. 11 spot images are saved. COMPARISON: Prior small bowel follow-through August 18, 2017. Prior CT abdomen and pelvis July 05 8 FINDINGS: Asbestos Removal Supervisor image of the abdomen shows persists an overall nonobstructive bowel gas pattern. Mul tiple bilateral pelvic phleboliths are redemonstrated. The small bowel study shows normal transit to the colon in less than 30 minutes. There is a normal m ucosal fold pattern throughout the small bowel. There is no evidence of any stricture or filling def ect noted. The terminal ileum is spotted and appears unremarkable. IMPRESSION: Normal small bowel follow through. No significant change from prior studies.
== END | disposition home or self-care (01) ==
LOC: RADFLMAIN 09:10
PROVIDERS: ATTEND Internal Medicine Gastroenterology
DX: K62.5 Hemorrhage of anus and rectum (principal)
CPT/HCPCS: 74250

== ENCOUNTER 2019-03-25 21:57 | Emergency (ER) | payer BC ==
[2019-03-25 22:03] VITALS: TEMP 98
[2019-03-25] MEDS ORDERED: SODIUM CHLORIDE 0.9% 1,000 ML IV STA (22:11)
[2019-03-25] MEDS ORDERED: ONDANSETRON 4 MG/2 ML VIAL IVP STA (22:12)
[2019-03-25] MEDS ORDERED: diphenhydrAMINE 50 MG/ML 1 ML VIAL IVP STA (22:22)
--- NOTE | 2019-03-25 22:25 | ED ---
General Adult HPI - General Chief complaint: Nausea/Vomiting/Diarrhea Stated complaint: Vomiting Time Seen by Provider: 03/25/19 22:11 Source: patient Mode of arrival: ambulatory Limitations: no limitations - History of Present Illness Initial comments: Dictation was produced using [employer] dictation software. please excuse any grammatical, word or spelling errors. Chief Complaint: 48-year-old female presents with nausea vomiting and abdominal pain. History of Present Illness: 48-year-old female she has past medical history of cyclic vomiting syndrome. Patient is a almost daily marijuana user. She reports that she has a history of cyclical vomiting syndrome. She is seen in [facility] associate in the past. Over the last 24-48 hours she's been having nausea vomiting and epigastric abdominal pain. Patient states she is vomiting clear fluid. Patient states that she feels so sick that she needs to throw up. She even forces herself to throw by sticking her finger down her throat. Denies any fever, chills or night sweats. Patient states she's been in and out of multiple emergency departments for the same complaint. She states that the only medications that work for her is opiates, Ativan and Benadryl. The ROS documented in this emergency department record has been reviewed and confirmed by me. Those systems with pertinent positive or negative responses have been documented in the HPI. All other systems are other negative and/or noncontributory. PHYSICAL EXAM: General Impression: Alert and oriented x3 HEENT: Normocephalic atraumatic, extra-ocular movements intact, pupils equal and reactive to light bilaterally, mucous membranes moist. Cardiovascular: Heart regular rate and rhythm, S1&S2 audible, no murmurs, rubs or gallops Chest: Lungs clear to auscultation bilaterally, no rhonchi, no wheeze, no rales Abdomen: Bowel sounds present, abdomen soft, non-tender, non-distended, no organomegaly Musculoskeletal: Pulses present and equal in all extremities, no peripheral edema Motor: no focal deficits noted Neurological: CN II-XII grossly intact, no focal motor or sensory deficits noted Skin: Intact with no visualized rashes Psych: Anxious ED course: 48-year-old female presents with clinical presentation consistent with cyclic vomiting syndrome. There is strong clinical suspicion that this is secondary to marijuana abuse. Abdominal examination is benign. Return evaluation obtained. Mild stress leukocytosis with a white count 12.5. Metabolic panel is unremarkable. Abdominal labs are negative. No elevation in lipase. Patient continues to voluntarily stick her finger down her throat in or rah to cause herself to vomit. Patient is advised not to do this. Patient given antiemetics, GI cocktail per request. Patient exhibiting drug-seeking behavior. She is given small dose of Ativan and analgesics via IM. Patient is discharged told to follow up with [employer] associate. Return parameters discussed, patient also advised to discontinue marijuana use. - Related Data Home Medications Medication Instructions Recorded Confirmed ARIPiprazole [Abilify] 15 mg PO DAILY 01/20/16 12/28/18 Citalopram Hydrobromide [CeleXA] 20 mg PO DAILY 02/10/17 12/28/18 Omeprazole [PriLOSEC] 20 mg PO AC-BID 08/30/17 12/28/18 Ondansetron Odt [Zofran Odt] 4 mg PO BID PRN 08/30/17 12/28/18 Previous Rx's Medication Instructions Recorded Promethazine Suppository 25 mg RECTAL QID PRN #20 supp 08/06/17 [Phenergan] Ondansetron Odt [Zofran ODT] 4 mg PO Q8HR PRN #20 tab 09/01/17 Allergies Allergy/AdvReac Type Severity Reaction Status Date / Time metoclopramide [From Reglan] AdvReac Nausea & Verified 03/25/19 22:03 Vomiting Review of Systems ROS Statement: Those systems with pertinent positive or pertinent negative responses have been documented in the HPI. ROS Other: All systems not noted in ROS Statement are negative. Past Medical History Past Medical History: GERD/Reflux Additional Past Medical History / Comment(s): states "having heavy periods",HX. GASTRITIS, LOW IRON, intermittent nausea/vomiting for 4 years-unsure of cause, cyclic vomiting. History of Any Multi-Drug Resistant Organisms: None Reported Past Surgical History: No Surgical Hx Reported Additional Past Surgical History / Comment(s): EGD,colonoscopy, Past Anesthesia/Blood Transfusion Reactions: Postoperative Nausea & Vomiting (PONV) Additional Past Anesthesia/Blood Transfusion Reaction / Comment(s): no hx blood transfusion Past Psychological History: Anxiety, Bipolar, Depression, Panic Disorder Smoking Status: Never smoker Past Alcohol Use History: Occasional Past Drug Use History: Marijuana - Past Family History Mother Family Medical History: No Reported History General Exam Limitations: no limitations Course Vital Signs 03/25/19 22:01 Temperature 98 F Pulse Rate 75 Respiratory 20 Rate Blood Pressure 164/82 O2 Sat by Pulse 94 L Oximetry Medical Decision Making - Lab Data Result diagrams: 03/25/19 22:46 03/25/19 22:46 Lab Results 03/25/19 03/25/19 Range/Units 22:46 22:46 WBC 12.5 H (3.8-10.6) k/uL RBC 3.64 L (3.80-5.40) m/uL Hgb 11.4 (11.4-16.0) gm/dL Hct 35.0 (34.0-46.0) % MCV 96.1 (80.0-100.0) fL MCH 31.5 (25.0-35.0) pg MCHC 32.7 (31.0-37.0) g/dL RDW 14.1 (11.5-15.5) % Plt Count 345 (150-450) k/uL Neutrophils % 91 % Lymphocytes % 4 % Monocytes % 3 % Eosinophils % 1 % Basophils % 0 % Neutrophils # 11.4 H (1.3-7.7) k/uL Lymphocytes # 0.5 L (1.0-4.8) k/uL Monocytes # 0.4 (0-1.0) k/uL Eosinophils # 0.1 (0-0.7) k/uL Basophils # 0.0 (0-0.2) k/uL Sodium 141 (137-145) mmol/L Potassium 3.6 (3.5-5.1) mmol/L Chloride 108 H (98-107) mmol/L Carbon Dioxide 25 (22-30) mmol/L Anion Gap 8 mmol/L BUN 18 H (7-17) mg/dL Creatinine 0.61 (0.52-1.04) mg/dL Est GFR (CKD-EPI)AfAm >90 (>60 ml/min/1.73 sqM) Est GFR (CKD-EPI)NonAf >90 (>60 ml/min/1.73 sqM) Glucose 131 H (74-99) mg/dL Calcium 9.1 (8.4-10.2) mg/dL Magnesium 1.7 (1.6-2.3) mg/dL Total Bilirubin 0.3 (0.2-1.3) mg/dL AST 39 H (14-36) U/L ALT 28 (4-34) U/L Alkaline Phosphatase 50 (38-126) U/L Total Protein 7.6 (6.3-8.2) g/dL Albumin 4.5 (3.5-5.0) g/dL Lipase 34 (23-300) U/L Disposition Clinical Impression: Cyclical vomiting Disposition: HOME SELF-CARE Condition: Good Instructions (If sedation given, give patient instructions): Acute Nausea and Vomiting (ED) Additional Instructions: Follow-up with her repro[facility] associate. Abstain from marijuana use. Is patient prescribed a controlled substance at d/c from ED?: No Referrals: Oren Darden DO [Primary Care Provider] - 1-2 days Time of Disposition: 23:37
[2019-03-25 23:13] LABS: Basophils % (A) 0 %; Eosinophils # (A) 0.1 k/uL (0-0.7); Eosinophils % (A) 1 %; HGB 11.4 gm/dL (11.4-16.0); Lymphocytes # (A) 0.5 k/uL (1.0-4.8); Lymphocytes % (A) 4 %; MCH 31.5 pg (25.0-35.0); MCHC 32.7 g/dL (31.0-37.0); MCV 96.1 fL (80.0-100.0); Mean Platelet Volume 7.8; Monocytes # (A) 0.4 k/uL (0-1.0); Monocytes % (A) 3 %; Neutrophils # (A) 11.4 k/uL (1.3-7.7); Neutrophils % (A) 91 %; Platelet Count 345 k/uL (150-450); RBC 3.64 m/uL (3.80-5.40); RDW 14.1 % (11.5-15.5); WBC 12.5 k/uL (3.8-10.6)
[2019-03-25 23:25] LABS: ALT 28 U/L (4-34); AST 39 U/L (14-36); African American GFR (CKD) >90 (>60 ml/min/1.73 sqM); Albumin 4.5 g/dL (3.5-5.0); Alkaline Phosphatase 50 U/L (38-126); Anion Gap 8 mmol/L; Blood Urea Nitrogen 18 mg/dL (7-17); Calcium 9.1 mg/dL (8.4-10.2); Carbon Dioxide 25 mmol/L (22-30); Chloride 108 mmol/L (98-107); Glucose 131 mg/dL (74-99); Magnesium 1.7 mg/dL (1.6-2.3); Non-African American GFR(CKD) >90 (>60 ml/min/1.73 sqM); Potassium 3.6 mmol/L (3.5-5.1); Sodium 141 mmol/L (137-145); Total Bilirubin 0.3 mg/dL (0.2-1.3); Total Protein 7.6 g/dL (6.3-8.2)
[2019-03-25] MEDS ORDERED: LORazepam 2 MG/ML INJ IM STA (23:34)
[2019-03-25] MEDS ORDERED: HYDROmorphone 0.5 MG/0.5 ML SYRINGE IM STA (23:35)
[2019-03-25] MEDS ORDERED: MAG HYDROX/AL HYDROX/SIMETH 30 ML, HYOSCYAMINE ELIXIR 10 ML, LIDOCAINE VISCOUS 2% 10 ML PO STA ×3 (23:35)
[2019-03-26 00:09] VITALS: BP 157/89; PULSE 68; RESP 18
== END 2019-03-26 00:12 | disposition home or self-care (01) ==
LOC: EC 21:57
DX: R11.15 Cyclical vomiting syndrome unrelated to migraine (principal); D72.829 Elevated white blood cell count, unspecified; Z76.5 Malingerer [conscious simulation]; R10.13 Epigastric pain; K21.9 Gastro-esophageal reflux disease without esophagitis; F31.9 Bipolar disorder, unspecified; F41.0 Panic disorder [episodic paroxysmal anxiety]; Z88.8 Allergy status to other drugs, medicaments and biological substances; Z79.899 Other long term (current) drug therapy
CPT/HCPCS: 36415; 80053; 83690; 83735; 85025; 99284; 96374; 96375; 96372 ×2; J2060; J1200; J2405; J1170

== ENCOUNTER 2019-09-12 02:12 | Emergency (ER) | payer BC ==
[2019-09-12 02:17] VITALS: RESP 18; TEMP 99.2
[2019-09-12] MEDS ORDERED: SODIUM CHLORIDE 0.9% 1,000 ML IV ONE (02:28)
[2019-09-12] MEDS ORDERED: FAMOTIDINE 20 MG/2 ML VIAL IV STA (02:28)
[2019-09-12] MEDS ORDERED: ONDANSETRON 4 MG/2 ML VIAL IVP STA (02:28)
[2019-09-12] MEDS ORDERED: LORazepam 2 MG/ML INJ IV STA (02:28)
--- NOTE | 2019-09-12 02:34 | ED ---
Abdominal Pain HPI - General Chief Complaint: Abdominal Pain Stated Complaint: NVD Time Seen by Provider: 09/12/19 02:20 Source: patient, EMS Mode of arrival: EMS Limitations: no limitations - History of Present Illness Initial Comments: This patient is a 49-year-old woman with history of previous episodes gastritis who presents with what she believes is another episode. The patient states that a couple of days ago she had a few alcoholic beverages. She then slept and when she woke up she had some coffee. She states the following that she started having some epigastric burning and vomiting. Since then she has tried home medications but continues to have vomiting and abdominal pains. No hematemesis or coffee-ground material. No change in bowel movements. She states that in the past when she's had this it is sometimes taken up to 10 days for the symptoms to resolve. MD Complaint: abdominal pain Onset/Timin -: days(s) Location: epigastric Radiation: none Migration to: no migration Severity: moderate Quality: cramping, aching, burning Consistency: constant Improves With: nothing Worsens With: vomiting Associated Symptoms: nausea, vomiting - Related Data Home Medications Medication Instructions Recorded Confirmed ARIPiprazole [Abilify] 15 mg PO DAILY 01/20/16 12/28/18 Citalopram Hydrobromide [CeleXA] 20 mg PO DAILY 02/10/17 12/28/18 Omeprazole [PriLOSEC] 20 mg PO AC-BID 08/30/17 12/28/18 Ondansetron Odt [Zofran Odt] 4 mg PO BID PRN 08/30/17 12/28/18 Previous Rx's Medication Instructions Recorded Promethazine Suppository 25 mg RECTAL QID PRN #20 supp 08/06/17 [Phenergan] Ondansetron Odt [Zofran ODT] 4 mg PO Q8HR PRN #20 tab 09/01/17 Allergies Allergy/AdvReac Type Severity Reaction Status Date / Time metoclopramide [From Reglan] AdvReac Nausea & Verified 03/25/19 22:03 Vomiting Review of Systems ROS Statement: Those systems with pertinent positive or pertinent negative responses have been documented in the HPI. ROS Other: All systems not noted in ROS Statement are negative. Constitutional: Denies: fever, chills Respiratory: Denies: cough, dyspnea Cardiovascular: Denies: chest pain, palpitations, orthopnea, syncope Gastrointestinal: Reports: abdominal pain, nausea, vomiting. Denies: diarrhea, hematemesis, melena, hematochezia Genitourinary: Denies: dysuria, hematuria Musculoskeletal: Denies: back pain Skin: Denies: rash Neurological: Denies: headache, weakness, numbness Past Medical History Past Medical History: GERD/Reflux Additional Past Medical History / Comment(s): states "having heavy periods",HX. GASTRITIS, LOW IRON, intermittent nausea/vomiting for 4 years-unsure of cause, cyclic vomiting. History of Any Multi-Drug Resistant Organisms: None Reported Past Surgical History: No Surgical Hx Reported Additional Past Surgical History / Comment(s): EGD,colonoscopy, Past Anesthesia/Blood Transfusion Reactions: Postoperative Nausea & Vomiting (PONV) Additional Past Anesthesia/Blood Transfusion Reaction / Comment(s): no hx blood transfusion Past Psychological History: Anxiety, Bipolar, Depression, Panic Disorder Smoking Status: Current every day smoker Past Alcohol Use History: Occasional Past Drug Use History: Marijuana - Past Family History Mother Family Medical History: No Reported History General Exam Limitations: no limitations General appearance: alert, in no apparent distress Head exam: Present: atraumatic, normocephalic Eye exam: Present: normal appearance. Absent: scleral icterus, conjunctival injection Respiratory exam: Present: normal lung sounds bilaterally. Absent: respiratory distress, wheezes, rales, rhonchi, stridor Cardiovascular Exam: Present: regular rate, normal rhythm, normal heart sounds. Absent: systolic murmur, diastolic murmur, rubs, gallop GI/Abdominal exam: Present: soft, normal bowel sounds. Absent: distended, tenderness, guarding, rebound, rigid, mass, pulsatile mass, hernia Extremities exam: Present: normal inspection, normal capillary refill. Absent: pedal edema, calf tenderness Back exam: Present: normal inspection. Absent: CVA tenderness (R), CVA tenderness (L) Neurological exam: Present: alert Skin exam: Present: warm, dry, intact, normal color. Absent: rash Course Vital Signs 09/12/19 09/12/19 02:14 04:14 Temperature 99.2 F Pulse Rate 69 75 Respiratory 18 18 Rate Blood Pressure 151/83 101/69 O2 Sat by Pulse 97 96 Oximetry Medical Decision Making - Lab Data Result diagrams: 09/12/19 03:29 09/12/19 03:28 Lab Results 09/12/19 09/12/19 09/12/19 Range/Units 03:28 03:28 03:29 WBC (3.8-10.6) k/uL RBC (3.80-5.40) m/uL Hgb (11.4-16.0) gm/dL Hct (34.0-46.0) % MCV (80.0-100.0) fL MCH (25.0-35.0) pg MCHC (31.0-37.0) g/dL RDW (11.5-15.5) % Plt Count (150-450) k/uL Neutrophils % % Lymphocytes % % Monocytes % % Eosinophils % % Basophils % % Neutrophils # (1.3-7.7) k/uL Lymphocytes # (1.0-4.8) k/uL Monocytes # (0-1.0) k/uL Eosinophils # (0-0.7) k/uL Basophils # (0-0.2) k/uL Hypochromasia Anisocytosis Sodium 138 (137-145) mmol/L Potassium 3.5 (3.5-5.1) mmol/L Chloride 98 (98-107) mmol/L Carbon Dioxide 30 (22-30) mmol/L Anion Gap 10 mmol/L BUN 16 (7-17) mg/dL Creatinine 0.76 (0.52-1.04) mg/dL Est GFR (CKD-EPI)AfAm >90 (>60 ml/min/1.73 sqM) Est GFR (CKD-EPI)NonAf >90 (>60 ml/min/1.73 sqM) Glucose 125 H (74-99) mg/dL Plasma Lactic Acid Keaton 1.2 (0.7-2.0) mmol/L Calcium 10.0 (8.4-10.2) mg/dL Total Bilirubin 0.4 (0.2-1.3) mg/dL AST 32 (14-36) U/L ALT 22 (4-34) U/L Alkaline Phosphatase 52 (38-126) U/L Troponin I <0.012 (0.000-0.034) ng/mL Total Protein 7.9 (6.3-8.2) g/dL Albumin 5.0 (3.5-5.0) g/dL Amylase 79 (30-110) U/L Lipase 40 (23-300) U/L Urine Color Urine Appearance (Clear) Urine pH (5.0-8.0) Ur Specific [place] (1.001-1.035) Urine Protein (Negative) Urine Glucose (UA) (Negative) Urine Ketones (Negative) Urine Blood (Negative) Urine Nitrite (Negative) Urine Bilirubin (Negative) Urine Urobilinogen (<2.0) mg/dL Ur Leukocyte Esterase (Negative) Urine RBC (0-5) /hpf Urine WBC (0-5) /hpf Ur Squamous Epith Cells (0-4) /hpf Urine Mucus (None) /hpf Urine HCG, Qual (Not Detectd) 09/12/19 09/12/19 09/12/19 Range/Units 03:29 04:48 04:48 WBC 13.8 H (3.8-10.6) k/uL RBC 4.18 (3.80-5.40) m/uL Hgb 10.7 L (11.4-16.0) gm/dL Hct 35.4 (34.0-46.0) % MCV 84.6 (80.0-100.0) fL MCH 25.7 (25.0-35.0) pg MCHC 30.3 L (31.0-37.0) g/dL RDW 16.0 H (11.5-15.5) % Plt Count 421 (150-450) k/uL Neutrophils % 89 % Lymphocytes % 4 % Monocytes % 6 % Eosinophils % 0 % Basophils % 0 % Neutrophils # 12.3 H (1.3-7.7) k/uL Lymphocytes # 0.5 L (1.0-4.8) k/uL Monocytes # 0.9 (0-1.0) k/uL Eosinophils # 0.0 (0-0.7) k/uL Basophils # 0.0 (0-0.2) k/uL Hypochromasia Moderate Anisocytosis Slight Sodium (137-145) mmol/L Potassium (3.5-5.1) mmol/L Chloride (98-107) mmol/L Carbon Dioxide (22-30) mmol/L Anion Gap mmol/L BUN (7-17) mg/dL Creatinine (0.52-1.04) mg/dL Est GFR (CKD-EPI)AfAm (>60 ml/min/1.73 sqM) Est GFR (CKD-EPI)NonAf (>60 ml/min/1.73 sqM) Glucose (74-99) mg/dL Plasma Lactic Acid Ke[place] (0.7-2.0) mmol/L Calcium (8.4-10.2) mg/dL Total Bilirubin (0.2-1.3) mg/dL AST (14-36) U/L ALT (4-34) U/L Alkaline Phosphatase (38-126) U/L Troponin I (0.000-0.034) ng/mL Total Protein (6.3-8.2) g/dL Albumin (3.5-5.0) g/dL Amylase (30-110) U/L Lipase (23-300) U/L Urine Color Yellow Urine Appearance Turbid H (Clear) Urine pH 6.5 (5.0-8.0) Ur Specific [place] 1.034 (1.001-1.035) Urine Protein 3+ H (Negative) Urine Glucose (UA) Trace H (Negative) Urine Ketones 1+ H (Negative) Urine Blood Large H (Negative) Urine Nitrite Negative (Negative) Urine Bilirubin Negative (Negative) Urine Urobilinogen 2.0 (<2.0) mg/dL Ur Leukocyte Esterase Negative (Negative) Urine RBC 124 H (0-5) /hpf Urine WBC 7 H (0-5) /hpf Ur Squamous Epith Cells 18 H (0-4) /hpf Urine Mucus Many H (None) /hpf Urine HCG, Qual Not Detected (Not Detectd) - EKG Data -: EKG Interpreted by Dc EKG shows normal: sinus rhythm, axis (Normal), intervals (Normal), QRS complexes (Normal) Rate: normal (Rate 64 bpm) Interpretation: nonspecific ST-T wave changes Disposition Clinical Impression: Gastritis Disposition: HOME SELF-CARE Condition: Good Instructions (If sedation given, give patient instructions): Gastritis (ED) Is patient prescribed a controlled substance at d/c from ED?: No Referrals: Oren Darden DO [Primary Care Provider] - 1-2 days
[2019-09-12 03:59] LABS: Anisocytosis Slight; Basophils % (A) 0 %; Eosinophils % (A) 0 %; HCT 35.4 % (34.0-46.0); HGB 10.7 gm/dL (11.4-16.0); Hypochromasia Moderate; Lymphocytes # (A) 0.5 k/uL (1.0-4.8); Lymphocytes % (A) 4 %; MCH 25.7 pg (25.0-35.0); MCHC 30.3 g/dL (31.0-37.0); MCV 84.6 fL (80.0-100.0); Mean Platelet Volume 7.1; Monocytes # (A) 0.9 k/uL (0-1.0); Monocytes % (A) 6 %; Neutrophils # (A) 12.3 k/uL (1.3-7.7); Neutrophils % (A) 89 %; Platelet Count 421 k/uL (150-450); RBC 4.18 m/uL (3.80-5.40); WBC 13.8 k/uL (3.8-10.6)
[2019-09-12 04:08] LABS: ALT 22 U/L (4-34); AST 32 U/L (14-36); African American GFR (CKD) >90 (>60 ml/min/1.73 sqM); Alkaline Phosphatase 52 U/L (38-126); Amylase 79 U/L (30-110); Anion Gap 10 mmol/L; Blood Urea Nitrogen 16 mg/dL (7-17); Carbon Dioxide 30 mmol/L (22-30); Chloride 98 mmol/L (98-107); Glucose 125 mg/dL (74-99); Non-African American GFR(CKD) >90 (>60 ml/min/1.73 sqM); Potassium 3.5 mmol/L (3.5-5.1); Sodium 138 mmol/L (137-145); Total Bilirubin 0.4 mg/dL (0.2-1.3); Total Protein 7.9 g/dL (6.3-8.2)
[2019-09-12 04:15] VITALS: BP 101/69; PULSE 75
[2019-09-12 04:58] LABS: Appearance,Urine Turbid (Clear); Bilirubin,Urine Negative (Negative); Blood,Urine Large (Negative); Color,Urine Yellow; Glucose,Urine (UA) Trace (Negative); Ketones,Urine 1+ (Negative); Leukocyte Esterase,Urine Negative (Negative); Mucus,Urine Many /hpf; Nitrite,Urine Negative (Negative); PH, Urine 6.5 (5.0-8.0); Protein,Urine 3+ (Negative); RBC,Urine 124 /hpf (0-5); Specific Gravity,Urine 1.034 (1.001-1.035); Squamous Epithelial Cell,Urine 18 /hpf (0-4); WBC,Urine 7 /hpf (0-5)
[2019-09-12] MEDS ORDERED: LORazepam 1 MG TAB PO STA (06:08)
== END 2019-09-12 06:21 | disposition home or self-care (01) ==
LOC: EC 02:12
DX: K29.70 Gastritis, unspecified, without bleeding (principal); F31.9 Bipolar disorder, unspecified; F41.9 Anxiety disorder, unspecified; F41.0 Panic disorder [episodic paroxysmal anxiety]; K21.9 Gastro-esophageal reflux disease without esophagitis; F17.200 Nicotine dependence, unspecified, uncomplicated; Z79.899 Other long term (current) drug therapy; Z88.8 Allergy status to other drugs, medicaments and biological substances
CPT/HCPCS: 36415; 93005; 80053; 82150; 83605; 83690; 84484; 85025; 81001; 81025; 96374; 96375 ×2; 96361 ×4; 99284; J2060; J2405

== ENCOUNTER 2019-09-12 17:16 | Observation (INO) | payer BC ==
[2019-09-12] MEDS ORDERED: ONDANSETRON 4 MG/2 ML VIAL IVP STA (17:46)
[2019-09-12] MEDS ORDERED: SODIUM CHLORIDE 0.9% 1,000 ML IV STA (17:46)
[2019-09-12] MEDS ORDERED: KETOROLAC 30 MG/ML 1 ML VIAL IVP STA (18:12)
[2019-09-12] MEDS ORDERED: PANTOPRAZOLE 40 MG/10 ML VIAL IVP STA (18:12)
--- NOTE | 2019-09-12 18:19 | ED ---
General Adult HPI - General Chief complaint: Nausea/Vomiting/Diarrhea Stated complaint: Vomiting Time Seen by Provider: 09/12/19 17:20 Source: patient Mode of arrival: ambulatory Limitations: no limitations - History of Present Illness Initial comments: Patient is a 49-year-old female past history of gastritis and cyclic vomiting who presents to the emergency room with reported continued vomiting. She was seen yesterday in the emergency room for similar complaint. She reports that she drank alcohol a few nights ago, went to sleep and when she woke up she drank some coffee. States that she feels she really irritated her stomach. She has had persistent nausea and vomiting. States that she has Phenergan and Zofran at home however she has been unable to keep these down. She has not eaten anything. Reports left upper quadrant abdominal pain. Denies dysuria, hematuria or difficulty voiding. Does report to bright red blood per rectum 3 days ago. Had a bowel movement yesterday which was normal in color and consistency. States she normally has some mild component of diarrhea. She denies any current illicit drug use. No use of NSAIDs or heavy alcohol. No chest pain or shortness of breath. No ripping or tearing sensation to her back. Patient does not take any blood thinners. No fevers or chills. No recent travel. Denies sick contacts with similar symptoms. 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 Last EGD was several years ago. Denies concern for . No history of previous abdominal surgeries. There are no alleviating, precipitating modifying factors - Related Data Home Medications Medication Instructions Recorded Confirmed ARIPiprazole [Abilify] 15 mg PO DAILY 01/20/16 09/12/19 Citalopram Hydrobromide [CeleXA] 20 mg PO DAILY 02/10/17 09/12/19 Omeprazole [PriLOSEC] 20 mg PO AC-BID 08/30/17 09/12/19 Previous Rx's Medication Instructions Recorded Ondansetron Odt [Zofran ODT] 4 mg PO Q8HR PRN #20 tab 09/01/17 Allergies Allergy/AdvReac Type Severity Reaction Status Date / Time metoclopramide [From Reglan] AdvReac Nausea & Verified 09/12/19 18:23 Vomiting Review of Systems ROS Statement: Those systems with pertinent positive or pertinent negative responses have been documented in the HPI. ROS Other: All systems not noted in ROS Statement are negative. Past Medical History Past Medical History: GERD/Reflux Additional Past Medical History / Comment(s): states "having heavy periods",HX. GASTRITIS, LOW IRON, intermittent nausea/vomiting for 4 years-unsure of cause, cyclic vomiting. History of Any Multi-Drug Resistant Organisms: None Reported Past Surgical History: No Surgical Hx Reported Additional Past Surgical History / Comment(s): EGD,colonoscopy, Past Anesthesia/Blood Transfusion Reactions: Postoperative Nausea & Vomiting (PONV) Additional Past Anesthesia/Blood Transfusion Reaction / Comment(s): no hx blood transfusion Past Psychological History: Anxiety, Bipolar, Depression, Panic Disorder Smoking Status: Current every day smoker Past Alcohol Use History: Occasional Past Drug Use History: Marijuana - Past Family History Mother Family Medical History: No Reported History Father Additional Family Medical History / Comment(s): arrhythmia. General Exam Limitations: physical limitation (patient actively heaving during my exam) General appearance: alert, in distress (profound vomiting upon arrival) Head exam: Present: atraumatic, normocephalic, normal inspection Eye exam: Present: normal appearance, PERRL, EOMI. Absent: scleral icterus, conjunctival injection, periorbital swelling ENT exam: Present: normal exam, mucous membranes moist Neck exam: Present: normal inspection. Absent: tenderness, meningismus, lymphadenopathy Respiratory exam: Present: normal lung sounds bilaterally. Absent: respiratory distress, wheezes, rales, rhonchi, stridor Cardiovascular Exam: Present: regular rate, normal rhythm, normal heart sounds. Absent: systolic murmur, diastolic murmur, rubs, gallop, clicks GI/Abdominal exam: Present: soft, normal bowel sounds. Absent: distended, tenderness, guarding, rebound, rigid Extremities exam: Present: normal inspection, full ROM, normal capillary refill. Absent: tenderness, pedal edema, joint swelling, calf tenderness Back exam: Present: normal inspection Neurological exam: Present: alert, oriented X3, CN II-XII intact Psychiatric exam: Present: normal affect, normal mood Skin exam: Present: warm, dry, intact, normal color. Absent: rash Course Vital Signs 09/12/19 09/12/19 09/12/19 17:18 19:38 22:33 Temperature 98.2 F Pulse Rate 68 64 65 Respiratory 16 18 16 Rate Blood Pressure 149/90 158/100 112/80 O2 Sat by Pulse 99 98 99 Oximetry 09/12/19 09/13/19 23:35 03:34 Temperature 98.6 F Pulse Rate 65 86 Respiratory 16 16 Rate Blood Pressure 115/83 O2 Sat by Pulse 98 99 Oximetry EKG Findings - EKG Comments: EKG Findings:: EKG demonstrates a normal sinus rhythm with a ventricular rate of 63. TN interval 134. QRS 86. QTC of 450. Mild ST depression in 3 and aVF. No acute ST segment elevations Medical Decision Making - Medical Decision Making Upon arrival the patient is placed into room 7. A thorough history and physical exam was performed. The patient is difficult to obtain iv access and therefore I do have to do a peripheral guided ultrasound on the patient. Laboratory studies were conducted. White blood count is 13.1. Urinalysis is positive for 75 red blood cells, 6 white blood cells, 34 seconds epithelial cells. UDS is positive for benzos and marijuana. Patient was given a liter bolus of normal saline, 40 mg of Protonix, Forma grams of Zofran and 15 g of Toradol. Patient continues to vomit and therefore she is given 50 mg of Benadryl and 1 mg of Ativan. Patient's is reevaluated and continues to demonstrate epigastric discomfort. She is given a GI cocktail. Forth evaluation the patient demonstrates she continues to have vomiting. At this point I did recommend hospital admission for GI to consult. Patient did agree to this. I discussed the case with Dr. Mckeon who accepted admission for the patient. Antiemetics were ordered for the patient. - Lab Data Result diagrams: 09/13/19 05:52 09/13/19 05:52 Lab Results 09/12/19 09/12/19 09/12/19 Range/Units 19:37 19:37 19:37 WBC 13.1 H (3.8-10.6) k/uL RBC 4.07 (3.80-5.40) m/uL Hgb 11.0 L (11.4-16.0) gm/dL Hct 34.6 (34.0-46.0) % MCV 85.1 (80.0-100.0) fL MCH 27.1 (25.0-35.0) pg MCHC 31.9 (31.0-37.0) g/dL RDW 15.6 H (11.5-15.5) % Plt Count 438 (150-450) k/uL Neutrophils % 84 % Lymphocytes % 7 % Monocytes % 7 % Eosinophils % 0 % Basophils % 0 % Neutrophils # 11.1 H (1.3-7.7) k/uL Lymphocytes # 0.9 L (1.0-4.8) k/uL Monocytes # 0.9 (0-1.0) k/uL Eosinophils # 0.0 (0-0.7) k/uL Basophils # 0.0 (0-0.2) k/uL Hypochromasia Moderate Sodium 136 L (137-145) mmol/L Potassium 3.7 (3.5-5.1) mmol/L Chloride 98 (98-107) mmol/L Carbon Dioxide 29 (22-30) mmol/L Anion Gap 9 mmol/L BUN 17 (7-17) mg/dL Creatinine 0.73 (0.52-1.04) mg/dL Est GFR (CKD-EPI)AfAm >90 (>60 ml/min/1.73 sqM) Est GFR (CKD-EPI)NonAf >90 (>60 ml/min/1.73 sqM) Glucose 118 H (74-99) mg/dL Plasma Lactic Acid [place] 1.2 (0.7-2.0) mmol/L Calcium 9.8 (8.4-10.2) mg/dL Total Bilirubin 0.4 (0.2-1.3) mg/dL AST 31 (14-36) U/L ALT 23 (4-34) U/L Alkaline Phosphatase 52 (38-126) U/L Total Protein 7.6 (6.3-8.2) g/dL Albumin 4.9 (3.5-5.0) g/dL Lipase 32 (23-300) U/L Urine Color Urine Appearance (Clear) Urine pH (5.0-8.0) Ur Specific [place] (1.001-1.035) Urine Protein (Negative) Urine Glucose (UA) (Negative) Urine Ketones (Negative) Urine Blood (Negative) Urine Nitrite (Negative) Urine Bilirubin (Negative) Urine Urobilinogen (<2.0) mg/dL Ur Leukocyte Esterase (Negative) Urine RBC (0-5) /hpf Urine WBC (0-5) /hpf Ur Squamous Epith Cells (0-4) /hpf Urine Bacteria (None) /hpf Urine Mucus (None) /hpf Urine HCG, Qual (Not Detectd) Urine Opiates Screen (NotDetected) Ur Oxycodone Screen (NotDetected) Urine Methadone Screen (NotDetected) Ur Propoxyphene Screen (NotDetected) Ur Barbiturates Screen (NotDetected) U Tricyclic Antidepress (NotDetected) Ur Phencyclidine Scrn (NotDetected) Ur Amphetamines Screen (NotDetected) U Methamphetamines Scrn (NotDetected) U Benzodiazepines Scrn (NotDetected) Urine Cocaine Screen (NotDetected) U Marijuana (THC) Screen (NotDetected) 09/12/19 09/12/19 09/12/19 Range/Units 20:27 20:27 20:27 WBC (3.8-10.6) k/uL RBC (3.80-5.40) m/uL Hgb (11.4-16.0) gm/dL Hct (34.0-46.0) % MCV (80.0-100.0) fL MCH (25.0-35.0) pg MCHC (31.0-37.0) g/dL RDW (11.5-15.5) % Plt Count (150-450) k/uL Neutrophils % % Lymphocytes % % Monocytes % % Eosinophils % % Basophils % % Neutrophils # (1.3-7.7) k/uL Lymphocytes # (1.0-4.8) k/uL Monocytes # (0-1.0) k/uL Eosinophils # (0-0.7) k/uL Basophils # (0-0.2) k/uL Hypochromasia Sodium (137-145) mmol/L Potassium (3.5-5.1) mmol/L Chloride (98-107) mmol/L Carbon Dioxide (22-30) mmol/L Anion Gap mmol/L BUN (7-17) mg/dL Creatinine (0.52-1.04) mg/dL Est GFR (CKD-EPI)AfAm (>60 ml/min/1.73 sqM) Est GFR (CKD-EPI)NonAf (>60 ml/min/1.73 sqM) Glucose (74-99) mg/dL Plasma Lactic Acid [place] (0.7-2.0) mmol/L Calcium (8.4-10.2) mg/dL Total Bilirubin (0.2-1.3) mg/dL AST (14-36) U/L ALT (4-34) U/L Alkaline Phosphatase (38-126) U/L Total Protein (6.3-8.2) g/dL Albumin (3.5-5.0) g/dL Lipase (23-300) U/L Urine Color Yellow Urine Appearance Cloudy H (Clear) Urine pH 6.5 (5.0-8.0) Ur Specific [place] 1.036 H (1.001-1.035) Urine Protein 3+ H (Negative) Urine Glucose (UA) Negative (Negative) Urine Ketones 1+ H (Negative) Urine Blood Large H (Negative) Urine Nitrite Negative (Negative) Urine Bilirubin Negative (Negative) Urine Urobilinogen <2.0 (<2.0) mg/dL Ur Leukocyte Esterase Negative (Negative) Urine RBC 75 H (0-5) /hpf Urine WBC 6 H (0-5) /hpf Ur Squamous Epith Cells 34 H (0-4) /hpf Urine Bacteria Rare H (None) /hpf Urine Mucus Many H (None) /hpf Urine HCG, Qual Not Detected (Not Detectd) Urine Opiates Screen Not Detected (NotDetected) Ur Oxycodone Screen Not Detected (NotDetected) Urine Methadone Screen Not Detected (NotDetected) Ur Propoxyphene Screen Not Detected (NotDetected) Ur Barbiturates Screen Not Detected (NotDetected) U Tricyclic Antidepress Not Detected (NotDetected) Ur Phencyclidine Scrn Not Detected (NotDetected) Ur Amphetamines Screen Not Detected (NotDetected) U Methamphetamines Scrn Not Detected (NotDetected) U Benzodiazepines Scrn Detected H (NotDetected) Urine Cocaine Screen Not Detected (NotDetected) U Marijuana (THC) Screen Detected H (NotDetected) Disposition Clinical Impression: Intractable vomiting with nausea, Gastritis Disposition: ADMITTED IP TO THIS [facility] Condition: Stable Is patient prescribed a controlled substance at d/c from ED?: No Decision to Admit Reason: Admit from EC Decision Date: 09/12/19 Decision Time: 21:32
[2019-09-12] MEDS ORDERED: diphenhydrAMINE 50 MG/ML 1 ML VIAL IVP STA (19:03)
[2019-09-12 19:58] LABS: Basophils % (A) 0 %; Eosinophils % (A) 0 %; HCT 34.6 % (34.0-46.0); Hypochromasia Moderate; Lymphocytes # (A) 0.9 k/uL (1.0-4.8); Lymphocytes % (A) 7 %; MCH 27.1 pg (25.0-35.0); MCHC 31.9 g/dL (31.0-37.0); MCV 85.1 fL (80.0-100.0); Mean Platelet Volume 7.1; Monocytes # (A) 0.9 k/uL (0-1.0); Monocytes % (A) 7 %; Neutrophils # (A) 11.1 k/uL (1.3-7.7); Neutrophils % (A) 84 %; Platelet Count 438 k/uL (150-450); RBC 4.07 m/uL (3.80-5.40); RDW 15.6 % (11.5-15.5); WBC 13.1 k/uL (3.8-10.6)
[2019-09-12 20:11] LABS: ALT 23 U/L (4-34); AST 31 U/L (14-36); African American GFR (CKD) >90 (>60 ml/min/1.73 sqM); Albumin 4.9 g/dL (3.5-5.0); Alkaline Phosphatase 52 U/L (38-126); Anion Gap 9 mmol/L; Blood Urea Nitrogen 17 mg/dL (7-17); Calcium 9.8 mg/dL (8.4-10.2); Carbon Dioxide 29 mmol/L (22-30); Chloride 98 mmol/L (98-107); Glucose 118 mg/dL (74-99); Lipase 32 U/L (23-300); Non-African American GFR(CKD) >90 (>60 ml/min/1.73 sqM); Potassium 3.7 mmol/L (3.5-5.1); Sodium 136 mmol/L (137-145); Total Bilirubin 0.4 mg/dL (0.2-1.3); Total Protein 7.6 g/dL (6.3-8.2)
--- NOTE | 2019-09-12 20:27 | CT ---
EXAMINATION TYPE: CT abdomen pelvis w con DATE OF EXAM: 09/12/2019 COMPARISON: 07/05/2017 HISTORY: Abdominal pain, nausea and vomiting. CT DLP: 902.1 mGycm Automated exposure control for dose reduction was used. CONTRAST: Performed with IV Contrast, patient injected with 100ml mL of Isovue 300. Multiple axial sections were obtained from the diaphragm to the floor the pelvis with IV contrast. FINDINGS: Lung bases are clear and there is small hiatal hernia. Heart size is normal. There is no pericardial effusion. Liver spleen pancreas gallbladder appear intact. There is 1.5 cm hypodense area anterior ri ght lobe of the liver that is probably a hemangioma. Unchanged. There is no adrenal mass. Kidneys show satisfactory contrast opacification. There is no hydronephrosi s. There is 1.5 cm cyst posterior right kidney. There is no retroperitoneal adenopathy. Bladder diste nds smoothly. There is no inguinal hernia. Uterus is anteverted. There is no free fluid in the pelvis . There is no mesenteric edema. There is no ascites or free air. There is no evidence of a bowel obstru ction. Appendix is medial and appears normal. The lumbar vertebra have normal alignment. Disc spaces are fairly normal. Posterior elements are intact. Bony pelvis is intact. IMPRESSION: Negative CT scan abdomen and pelvis. No adverse change compared to old exam.
[2019-09-12] MEDS ORDERED: LORazepam 2 MG/ML INJ IV STA (20:40)
[2019-09-12] MEDS ORDERED: MAG HYDROX/AL HYDROX/SIMETH 30 ML, HYOSCYAMINE ELIXIR 10 ML, LIDOCAINE VISCOUS 2% 10 ML PO STA ×3 (20:40)
[2019-09-12 21:13] LABS: Appearance,Urine Cloudy (Clear); Bacteria,Urine Rare /hpf; Bilirubin,Urine Negative (Negative); Blood,Urine Large (Negative); Color,Urine Yellow; Glucose,Urine (UA) Negative (Negative); Ketones,Urine 1+ (Negative); Leukocyte Esterase,Urine Negative (Negative); Mucus,Urine Many /hpf; Nitrite,Urine Negative (Negative); PH, Urine 6.5 (5.0-8.0); Protein,Urine 3+ (Negative); RBC,Urine 75 /hpf (0-5); Specific Gravity,Urine 1.036 (1.001-1.035); Squamous Epithelial Cell,Urine 34 /hpf (0-4); Urobilinogen,Urine <2.0 mg/dL (<2.0); WBC,Urine 6 /hpf (0-5)
[2019-09-12 21:19] LABS: Phencyclidine Screen,Urine Not Detected (NotDetected); Urn Cannabinoid Scrn Detected (NotDetected)
[2019-09-12 21:20] LABS: Amphetamine Screen,Urine Not Detected (NotDetected); Barbiturate Screen,Urine Not Detected (NotDetected); Benzodiazepines Screen,Urine Detected (NotDetected); Cocaine Screen,Urine Not Detected (NotDetected); Methadone Screen, Urine Not Detected (NotDetected); Opiate Screen,Urine Not Detected (NotDetected); Oxycodone Screen, Urine Not Detected (NotDetected); Tricyclic Antidepressant,Urine Not Detected (NotDetected)
[2019-09-12] MEDS ORDERED: NALOXONE 0.4 MG/ML 1 ML VIAL IV PRN (21:32)
[2019-09-12] MEDS ORDERED: KETOROLAC 30 MG/ML 1 ML VIAL IVP PRN (21:32)
[2019-09-12] MEDS: SODIUM CHLORIDE 0.9% 1,000 ML IV SCH (22:32)
[2019-09-12 22:34] VITALS: RESP 16
[2019-09-12 23:36] VITALS: BP 115/83; TEMP 98.6
[2019-09-13] MEDS: ONDANSETRON 4 MG/2 ML VIAL IVP PRN ×2 (00:05→08:39)
[2019-09-13 03:35] VITALS: PULSE 86
[2019-09-13 06:10] LABS: Basophils % (A) 0 %; Eosinophils # (A) 0.1 k/uL (0-0.7); Eosinophils % (A) 1 %; HCT 32.7 % (34.0-46.0); Hypochromasia Moderate; Lymphocytes # (A) 1.2 k/uL (1.0-4.8); Lymphocytes % (A) 12 %; MCH 25.9 pg (25.0-35.0); MCHC 30.5 g/dL (31.0-37.0); MCV 84.7 fL (80.0-100.0); Mean Platelet Volume 7.1; Monocytes % (A) 10 %; Neutrophils # (A) 7.2 k/uL (1.3-7.7); Neutrophils % (A) 74 %; Platelet Count 387 k/uL (150-450); RBC 3.86 m/uL (3.80-5.40); RDW 15.8 % (11.5-15.5); WBC 9.8 k/uL (3.8-10.6)
[2019-09-13 06:23] LABS: African American GFR (CKD) >90 (>60 ml/min/1.73 sqM); Anion Gap 6 mmol/L; Blood Urea Nitrogen 19 mg/dL (7-17); Calcium 8.8 mg/dL (8.4-10.2); Carbon Dioxide 29 mmol/L (22-30); Chloride 101 mmol/L (98-107); Glucose 111 mg/dL (74-99); Non-African American GFR(CKD) >90 (>60 ml/min/1.73 sqM); Potassium 3.6 mmol/L (3.5-5.1); Sodium 136 mmol/L (137-145)
[2019-09-13] MEDS: SODIUM CHLORIDE 0.9% 1,000 ML IV SCH (08:42)
[2019-09-13] MEDS ORDERED: FAMOTIDINE 20 MG TAB PO SCH (09:00)
[2019-09-13] MEDS ORDERED: TRIMETHOBENZAMIDE 100 MG/ML 2 ML VIAL IM PRN (11:30)
--- NOTE | 2019-09-13 13:04 | P.HPIM ---
History of Present Illness 49-year-old female past history of gastritis and cyclic vomiting who presents to the emergency room with reported continued vomiting. She was seen yesterday in the emergency room for similar complaint. She reports that she drank alcohol a few nights ago, went to sleep and when she woke up she drank some coffee. States that she feels she really irritated her stomach. She has had persistent nausea and vomiting. States that she has Phenergan and Zofran at home however she has been unable to keep these down. She has not eaten anything. Reports left upper quadrant abdominal pain. Denies dysuria, hematuria or difficulty voi ding. Does report to bright red blood per rectum 3 days ago. Had a bowel movement yesterday which was normal in color and consistency. States she normally has some mild component of diarrhea. She denies any current illicit drug use. No use of NSAIDs or heavy alcohol. No chest pain or shortness of breath. No ripping or tearing sensation to her back. Patient does not take any blood thinners. No fevers or chills. No recent travel. Denies sick contacts with similar symptoms. 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 Last EGD was several years ago. Denies concern for . No history of previous abdominal surgeries. There are no alleviating, precipitating modifying factors Patient was given Protonix Pepcid Zofran. After a valid the patient patient asked me for Ativan which I declined patient was sleeping comfortable not anxious. Review of Systems I'll Other systems were reviewed and negative except those mentioned above Past Medical History Past Medical History: GERD/Reflux Additional Past Medical History / Comment(s): Cyclic vomiting, intermittent nausea/vomiting, past bulemia, iron anemia History of Any Multi-Drug Resistant Organisms: None Reported Past Surgical History: No Surgical Hx Reported Additional Past Surgical History / Comment(s): EGD,colonoscopy, Past Anesthesia/Blood Transfusion Reactions: Postoperative Nausea & Vomiting (PONV) Additional Past Anesthesia/Blood Transfusion Reaction / Comment(s): no hx blood transfusion Smoking Status: Current every day smoker - Past Family History Mother History Unknown: Yes Family Medical History: No Reported History Father Additional Family Medical History / Comment(s): arrhythmia. Medications and Allergies Home Medications Medication Instructions Recorded Confirmed Type ARIPiprazole [Abilify] 15 mg PO DAILY 01/20/16 09/12/19 History Citalopram Hydrobromide [CeleXA] 20 mg PO DAILY 02/10/17 09/12/19 History Omeprazole [PriLOSEC] 20 mg PO AC-BID 08/30/17 09/12/19 History Ondansetron Odt [Zofran ODT] 4 mg PO Q8HR PRN #20 tab 09/01/17 09/12/19 Rx Allergies Allergy/AdvReac Type Severity Reaction Status Date / Time metoclopramide [From Reglan] AdvReac Nausea & Verified 09/12/19 18:23 Vomiting Physical Exam Vitals: Vital Signs Temp Pulse Resp BP Pulse Ox 09/13/19 03:34 86 16 99 09/12/19 23:35 98.6 F 65 16 115/83 98 09/12/19 22:33 65 16 112/80 99 09/12/19 19:38 64 18 158/100 98 09/12/19 17:18 98.2 F 68 16 149/90 99 Intake and Output 09/12/19 09/13/19 09/13/19 22:59 06:59 14:59 Other: Weight 86.183 kg 86.183 kg PHYSICAL EXAMINATION: GENERAL: The patient is alert and oriented x3, not in any acute distress. Well developed, well nourished. HEENT: Pupils are round and equally reacting to light. EOMI. No scleral icterus. No conjunctival pallor. Normocephalic, atraumatic. No pharyngeal erythema. No thyromegaly. CARDIOVASCULAR: S1 and S2 present. No murmurs, rubs, or gallops. PULMONARY: Chest is clear to auscultation, no wheezing or crackles. ABDOMEN: Soft, nontender, nondistended, normoactive bowel sounds. No palpable organomegaly. MUSCULOSKELETAL: No joint swelling or deformity. EXTREMITIES: No cyanosis, clubbing, or pedal edema. NEUROLOGICAL: Gross neurological examination did not reveal any focal deficits. SKIN: No rashes. Results CBC & Chem 7: 09/13/19 05:52 09/13/19 05:52 Labs: Abnormal Lab Results - Last 24 Hours (Table) 09/12/19 09/12/19 09/12/19 Range/Units 19:37 19:37 20:27 WBC 13.1 H (3.8-10.6) k/uL Hgb 11.0 L (11.4-16.0) gm/dL Hct (34.0-46.0) % MCHC (31.0-37.0) g/dL RDW 15.6 H (11.5-15.5) % Neutrophils # 11.1 H (1.3-7.7) k/uL Lymphocytes # 0.9 L (1.0-4.8) k/uL Sodium 136 L (137-145) mmol/L BUN (7-17) mg/dL Glucose 118 H (74-99) mg/dL Urine Appearance Cloudy H (Clear) Ur Specific [place] 1.036 H (1.001-1.035) Urine Protein 3+ H (Negative) Urine Ketones 1+ H (Negative) Urine Blood Large H (Negative) Urine RBC 75 H (0-5) /hpf Urine WBC 6 H (0-5) /hpf Ur Squamous Epith Cells 34 H (0-4) /hpf Urine Bacteria Rare H (None) /hpf Urine Mucus Many H (None) /hpf U Benzodiazepines Scrn (NotDetected) U Marijuana (THC) Screen (NotDetected) 09/12/19 09/13/19 09/13/19 Range/Units 20:27 05:52 05:52 WBC (3.8-10.6) k/uL Hgb 10.0 L (11.4-16.0) gm/dL Hct 32.7 L (34.0-46.0) % MCHC 30.5 L (31.0-37.0) g/dL RDW 15.8 H (11.5-15.5) % Neutrophils # (1.3-7.7) k/uL Lymphocytes # (1.0-4.8) k/uL Sodium 136 L (137-145) mmol/L BUN 19 H (7-17) mg/dL Glucose 111 H (74-99) mg/dL Urine Appearance (Clear) Ur Specific [place] (1.001-1.035) Urine Protein (Negative) Urine Ketones (Negative) Urine Blood (Negative) Urine RBC (0-5) /hpf Urine WBC (0-5) /hpf Ur Squamous Epith Cells (0-4) /hpf Urine Bacteria (None) /hpf Urine Mucus (None) /hpf U Benzodiazepines Scrn Detected H (NotDetected) U Marijuana (THC) Screen Detected H (NotDetected) Thrombosis Risk Factor Assmnt - Choose All That Apply Any of the Below Risk Factors Present?: Yes Each Factor Represents 1 point: Obesity (BMI >25) Other Risk Factors: No Other congenital or acquired thrombophilia - If yes, enter type in comment: No Thrombosis Risk Factor Assessment Total Risk Factor Score: 1 Thrombosis Risk Factor Assessment Level: Low Risk Assessment and Plan Plan: -Gastritis or peptic is disease: Patient was started on Protonix patient had some coffee-ground emesis patient was started on IV fluids nonsteroidal anti- inflammatory medications were discontinued. Gastric body was consulted but later patient later left AMA. -History of cyclical vomiting syndrome Depression and anxiety -Nicotine abuse: Counseling was provided Occasional marijuana use
--- NOTE | 2019-09-13 13:05 | P.DS ---
Providers Date of admission: 09/12/19 21:32 Attending physician: Marlon Mckeon Consults: 09/12/19 21:33 Consult Physician Urgent Consulting Provider: Irene Hernandez Reason/Comments: intractable n/v Do you want consulting provider notified?: Yes Primary care physician: Oren Darden [facility] Course: Patient left AGAINST MEDICAL ADVICE Patient Condition at Discharge: Stable Plan - Discharge Summary Discharge Rx Participant: No New Discharge Prescriptions: No Action ARIPiprazole [Abilify] 15 mg PO DAILY Citalopram Hydrobromide [CeleXA] 20 mg PO DAILY Omeprazole [PriLOSEC] 20 mg PO AC-BID Ondansetron Odt [Zofran ODT] 4 mg PO Q8HR PRN #20 tab PRN Reason: Nausea Discharge Medication List ARIPiprazole [Abilify] 15 mg PO DAILY 01/20/16 [History] Citalopram Hydrobromide [CeleXA] 20 mg PO DAILY 02/10/17 [History] Omeprazole [PriLOSEC] 20 mg PO AC-BID 08/30/17 [History] Ondansetron Odt [Zofran ODT] 4 mg PO Q8HR PRN #20 tab 09/01/17 [Rx] Follow up Appointment(s)/Referral(s): Oren Darden DO [Primary Care Provider] - 1-2 days
[2019-09-13] MEDS ORDERED: LORazepam 2 MG/ML INJ IV PRN (13:17)
[2019-09-13] MEDS ORDERED: PANTOPRAZOLE 40 MG/10 ML VIAL IVP SCH (21:00)
== END 2019-09-13 14:19 | disposition left against medical advice (07) ==
LOC: EC 17:16 → 1SOBS 21:32
PROVIDERS: ADMIT Internal Medicine; ATTEND Internal Medicine
DX: R11.2 Nausea with vomiting, unspecified (principal); Z53.29 Procedure and treatment not carried out because of patient's decision for other reasons; R10.12 Left upper quadrant pain; R11.15 Cyclical vomiting syndrome unrelated to migraine; F41.9 Anxiety disorder, unspecified; F31.9 Bipolar disorder, unspecified; F17.200 Nicotine dependence, unspecified, uncomplicated; K21.9 Gastro-esophageal reflux disease without esophagitis; N92.0 Excessive and frequent menstruation with regular cycle; F41.0 Panic disorder [episodic paroxysmal anxiety]; E66.9 Obesity, unspecified; Z68.31 Body mass index [BMI] 31.0-31.9, adult; Z03.818 Encounter for observation for suspected exposure to other biological agents ruled out; Z79.899 Other long term (current) drug therapy; Z88.8 Allergy status to other drugs, medicaments and biological substances; Z87.19 Personal history of other diseases of the digestive system; Z86.2 Personal history of diseases of the blood and blood-forming organs and certain disorders involving the immune mechanism; Z98.890 Other specified postprocedural states; Z91.89 Other specified personal risk factors, not elsewhere classified; Z86.59 Personal history of other mental and behavioral disorders; Z82.49 Family history of ischemic heart disease and other diseases of the circulatory system
CPT/HCPCS: 96376; 96361 ×2; 96372; 96374; 96375; 99285; 36415; 93005; 80053; 80048; 83605; 83690; 85025 ×2; 81001; 81025; 80306; 74177; G0378 ×2; U0003; J2060; J1200; J2405 ×2; J1885 ×2; C9113; Q9967

== ENCOUNTER 2020-06-16 11:02 | Emergency (ER) | payer BC ==
[2020-06-16 11:53] VITALS: TEMP 98.2
[2020-06-16] MEDS ORDERED: PANTOPRAZOLE 40 MG/10 ML VIAL IVP STA (13:00)
[2020-06-16] MEDS ORDERED: 0.9% NACL WITH KCL 20 MEQ/L 1,000 ML with MVI, ADULT NO.4 WITH VIT K 10 ML, THIAMINE 10... IV SCH ×4 (13:00)
[2020-06-16] MEDS ORDERED: SODIUM CHLORIDE 0.9% 2,000 ML IV STA (13:00)
[2020-06-16] MEDS ORDERED: ONDANSETRON 4 MG/2 ML VIAL IVP STA (13:00)
[2020-06-16] MEDS ORDERED: SODIUM CHLORIDE 0.9% 1,000 ML with MVI, ADULT NO.4 WITH VIT K 10 ML, THIAMINE 100 MG, F... IV ONE ×4 (13:01)
[2020-06-16] MEDS ORDERED: LORazepam 2 MG/ML INJ IV STA (13:01)
--- NOTE | 2020-06-16 13:10 | ED ---
Abdominal Pain HPI - General Source: patient, RN notes reviewed, old records reviewed Mode of arrival: ambulatory Limitations: no limitations <Pina Pathak - Last Filed: 06/16/20 15:39> <Andreina Guo - Last Filed: 06/17/20 07:55> - General Chief Complaint: Abdominal Pain Stated Complaint: Vomiting Time Seen by Provider: 06/16/20 12:51 - History of Present Illness Initial Comments: Is a 50-year-old female whom presents to ED with CC of abdominal pain, nausea and vomiting. She reports a history of heavy alcohol use. She states that she drinks approximately a fifth of alcohol every day. Her last drink was 3 days ago. (Pina Pathak) - Related Data Home Medications Medication Instructions Recorded Confirmed ARIPiprazole [Abilify] 15 mg PO DAILY 01/20/16 06/16/20 Citalopram Hydrobromide [CeleXA] 20 mg PO DAILY 02/10/17 06/16/20 Omeprazole [PriLOSEC] 20 mg PO AC-BID 08/30/17 06/16/20 Previous Rx's Medication Instructions Recorded Ondansetron Odt [Zofran Odt] 4 mg PO Q8HR PRN #12 tab 06/16/20 Pantoprazole [Protonix] 40 mg PO DAILY #14 tablet. 06/16/20 chlordiazePOXIDE HCl [Librium] 25 mg PO DIRECTED 4 Days #10 06/16/20 capsule Allergies Allergy/AdvReac Type Severity Reaction Status Date / Time metoclopramide [From Reglan] AdvReac Nausea & Verified 06/16/20 13:50 Vomiting Review of Systems ROS Other: All systems not noted in ROS Statement are negative. <Pina Pathak - Last Filed: 06/16/20 15:39> ROS Other: All systems not noted in ROS Statement are negative. <Andreina Guo - Last Filed: 06/17/20 07:55> ROS Statement: Those systems with pertinent positive or pertinent negative responses have been documented in the HPI. Past Medical History Past Medical History: GERD/Reflux Additional Past Medical History / Comment(s): states "having heavy periods",HX. GASTRITIS, LOW IRON, intermittent nausea/vomiting for 4 years-unsure of cause, cyclic vomiting. History of Any Multi-Drug Resistant Organisms: None Reported Past Surgical History: No Surgical Hx Reported Additional Past Surgical History / Comment(s): EGD,colonoscopy, Past Anesthesia/Blood Transfusion Reactions: Postoperative Nausea & Vomiting (PONV) Additional Past Anesthesia/Blood Transfusion Reaction / Comment(s): no hx blood transfusion Past Psychological History: Anxiety, Bipolar, Depression, Panic Disorder Smoking Status: Current every day smoker Past Alcohol Use History: Abuse, Daily, Heavy Past Drug Use History: Marijuana - Past Family History Mother History Unknown: Yes Family Medical History: No Reported History Father Additional Family Medical History / Comment(s): arrhythmia. <Marion Pathakily - Last Filed: 06/16/20 15:39> General Exam Limitations: no limitations General appearance: alert, in no apparent distress Head exam: Present: atraumatic, normocephalic, normal inspection Eye exam: Present: normal appearance, PERRL, EOMI. Absent: scleral icterus, conjunctival injection, periorbital swelling ENT exam: Present: normal exam, mucous membranes moist Neck exam: Present: normal inspection. Absent: tenderness, meningismus, lymphadenopathy Respiratory exam: Present: normal lung sounds bilaterally. Absent: respiratory distress, wheezes, rales, rhonchi, stridor Cardiovascular Exam: Present: regular rate, normal rhythm, normal heart sounds. Absent: systolic murmur, diastolic murmur, rubs, gallop, clicks GI/Abdominal exam: Present: soft, normal bowel sounds. Absent: distended, tenderness, guarding, rebound, rigid Extremities exam: Present: normal inspection, full ROM, normal capillary refill. Absent: tenderness, pedal edema, joint swelling, calf tenderness Back exam: Present: normal inspection Neurological exam: Present: alert, oriented X3, CN II-XII intact Psychiatric exam: Present: normal affect, normal mood Skin exam: Present: warm, dry, intact, normal color. Absent: rash <Marion Pathakily - Last Filed: 06/16/20 15:39> - General Exam Comments Initial Comments: Pleasant 50-year-old female. (Pina Pathak) Course Vital Signs 06/16/20 06/16/20 11:51 14:29 Temperature 98.2 F Pulse Rate 75 83 Respiratory 22 16 Rate Blood Pressure 163/86 O2 Sat by Pulse 98 98 Oximetry Medical Decision Making - Lab Data Result diagrams: 06/16/20 13:22 06/16/20 13:22 <Pina Pathak - Last Filed: 06/16/20 15:39> - Lab Data Result diagrams: 06/16/20 13:22 06/16/20 13:22 <Andreina Guo - Last Filed: 06/17/20 07:55> - Medical Decision Making 50-year-old female with a history of heavy alcohol use presently fifth a day. Patient was given IV fluids after recent nausea and vomiting episodes. She is given Ativan. No history of seizure activity. Labs reviewed and unremarkable. Patient will be discharged after feeling better with fluids. Discussed return parameters. Will Rx librium and zofran. Given outpatient resources. (Pina Pathak) I was available for consultation in the emergency department. The history and physical exam were done by the midlevel provider. I was consulted for this patients care. I reviewed the case with the midlevel provider and based on their presentation of the patient, I agree with the assessment, medical decision making and plan of care as documented. Chart was dictated using [email or web address] dictation software. Attempts were made to correct any dictation errors however some typographical errors may persist. (Andreina Guo) - Lab Data Lab Results 06/16/20 06/16/20 06/16/20 Range/Units 13:22 13:22 13:22 WBC 11.8 H (3.8-10.6) k/uL RBC 4.68 (3.80-5.40) m/uL Hgb 11.6 (11.4-16.0) gm/dL Hct 35.8 (34.0-46.0) % MCV 76.4 L (80.0-100.0) fL MCH 24.7 L (25.0-35.0) pg MCHC 32.4 (31.0-37.0) g/dL RDW 18.6 H (11.5-15.5) % Plt Count 519 H (150-450) k/uL MPV 6.5 Neutrophils % 89 % Lymphocytes % 4 % Monocytes % 6 % Eosinophils % 0 % Basophils % 0 % Neutrophils # 10.5 H (1.3-7.7) k/uL Lymphocytes # 0.5 L (1.0-4.8) k/uL Monocytes # 0.7 (0-1.0) k/uL Eosinophils # 0.0 (0-0.7) k/uL Basophils # 0.0 (0-0.2) k/uL Hypochromasia Slight Anisocytosis Slight Microcytosis Moderate PT 10.4 (9.0-12.0) sec INR 1.0 (<1.2) APTT 19.3 L (22.0-30.0) sec Sodium 136 L (137-145) mmol/L Potassium 3.7 (3.5-5.1) mmol/L Chloride 97 L (98-107) mmol/L Carbon Dioxide 28 (22-30) mmol/L Anion Gap 11 mmol/L BUN 17 (7-17) mg/dL Creatinine 0.79 (0.52-1.04) mg/dL Est GFR (CKD-EPI)AfAm >90 (>60 ml/min/1.73 sqM) Est GFR (CKD-EPI)NonAf 90 (>60 ml/min/1.73 sqM) Glucose 146 H (74-99) mg/dL Lactic Ac Sepsis Rflx Plasma Lactic Acid [place] (0.7-2.0) mmol/L Calcium 10.2 (8.4-10.2) mg/dL Magnesium 1.9 (1.6-2.3) mg/dL Total Bilirubin 0.4 (0.2-1.3) mg/dL AST 58 H (14-36) U/L ALT 41 H (4-34) U/L Alkaline Phosphatase 69 (38-126) U/L Total Protein 8.3 H (6.3-8.2) g/dL Albumin 5.0 (3.5-5.0) g/dL Amylase 56 (30-110) U/L Lipase 68 (23-300) U/L Serum Alcohol <10 mg/dL 06/16/20 06/16/20 Range/Units 13:22 14:04 WBC (3.8-10.6) k/uL RBC (3.80-5.40) m/uL Hgb (11.4-16.0) gm/dL Hct (34.0-46.0) % MCV (80.0-100.0) fL MCH (25.0-35.0) pg MCHC (31.0-37.0) g/dL RDW (11.5-15.5) % Plt Count (150-450) k/uL MPV Neutrophils % % Lymphocytes % % Monocytes % % Eosinophils % % Basophils % % Neutrophils # (1.3-7.7) k/uL Lymphocytes # (1.0-4.8) k/uL Monocytes # (0-1.0) k/uL Eosinophils # (0-0.7) k/uL Basophils # (0-0.2) k/uL Hypochromasia Anisocytosis Microcytosis PT (9.0-12.0) sec INR (<1.2) APTT (22.0-30.0) sec Sodium (137-145) mmol/L Potassium (3.5-5.1) mmol/L Chloride (98-107) mmol/L Carbon Dioxide (22-30) mmol/L Anion Gap mmol/L BUN (7-17) mg/dL Creatinine (0.52-1.04) mg/dL Est GFR (CKD-EPI)AfAm (>60 ml/min/1.73 sqM) Est GFR (CKD-EPI)NonAf (>60 ml/min/1.73 sqM) Glucose (74-99) mg/dL Lactic Ac Sepsis Rflx Y Plasma Lactic Acid [place] 2.3 H* (0.7-2.0) mmol/L Calcium (8.4-10.2) mg/dL Magnesium (1.6-2.3) mg/dL Total Bilirubin (0.2-1.3) mg/dL AST (14-36) U/L ALT (4-34) U/L Alkaline Phosphatase (38-126) U/L Total Protein (6.3-8.2) g/dL Albumin (3.5-5.0) g/dL Amylase (30-110) U/L Lipase (23-300) U/L Serum Alcohol mg/dL Disposition Is patient prescribed a controlled substance at d/c from ED?: No <Pina Pathak - Last Filed: 06/16/20 15:39> <Andreina Guo - Last Filed: 06/17/20 07:55> Clinical Impression: Nausea & vomiting, Alcohol withdrawal Disposition: HOME SELF-CARE Condition: Good Instructions (If sedation given, give patient instructions): Acute Nausea and Vomiting (ED) Additional Instructions: Please use medication as discussed. Please follow up with family doctor if symptoms have not improved over the next two days. [facility] if your symptoms increase or worsen or for any other concerns. Prescriptions: chlordiazePOXIDE HCl [Librium] 25 mg PO DIRECTED 4 Days #10 capsule Pantoprazole [Protonix] 40 mg PO DAILY #14 tablet. Ondansetron Odt [Zofran Odt] 4 mg PO Q8HR PRN #12 tab PRN Reason: Nausea Referrals: Oren Darden DO [Primary Care Provider] - 1-2 days
[2020-06-16 13:44] LABS: ALT 41 U/L (4-34); AST 58 U/L (14-36); African American GFR (CKD) >90 (>60 ml/min/1.73 sqM); Alcohol <10 mg/dL; Alkaline Phosphatase 69 U/L (38-126); Amylase 56 U/L (30-110); Anion Gap 11 mmol/L; Blood Urea Nitrogen 17 mg/dL (7-17); Calcium 10.2 mg/dL (8.4-10.2); Carbon Dioxide 28 mmol/L (22-30); Chloride 97 mmol/L (98-107); Glucose 146 mg/dL (74-99); Lipase 68 U/L (23-300); Magnesium 1.9 mg/dL (1.6-2.3); Non-African American GFR(CKD) 90 (>60 ml/min/1.73 sqM); Potassium 3.7 mmol/L (3.5-5.1); Sodium 136 mmol/L (137-145); Total Bilirubin 0.4 mg/dL (0.2-1.3); Total Protein 8.3 g/dL (6.3-8.2)
[2020-06-16 13:58] LABS: Anisocytosis Slight; Basophils % (A) 0 %; Eosinophils % (A) 0 %; HCT 35.8 % (34.0-46.0); HGB 11.6 gm/dL (11.4-16.0); Hypochromasia Slight; Lymphocytes # (A) 0.5 k/uL (1.0-4.8); Lymphocytes % (A) 4 %; MCH 24.7 pg (25.0-35.0); MCHC 32.4 g/dL (31.0-37.0); MCV 76.4 fL (80.0-100.0); Mean Platelet Volume 6.5; Microcytosis Moderate; Monocytes # (A) 0.7 k/uL (0-1.0); Monocytes % (A) 6 %; Neutrophils # (A) 10.5 k/uL (1.3-7.7); Neutrophils % (A) 89 %; Platelet Count 519 k/uL (150-450); RBC 4.68 m/uL (3.80-5.40); RDW 18.6 % (11.5-15.5); WBC 11.8 k/uL (3.8-10.6)
[2020-06-16 14:05] LABS: Prothrombin Time 10.4 sec (9.0-12.0)
[2020-06-16 14:09] LABS: Partial Thromboplastin Time 19.3 sec (22.0-30.0)
[2020-06-16] MEDS ORDERED: LORazepam 1 MG TAB PO STA (14:24)
[2020-06-16 14:29] VITALS: BP 163/86; PULSE 83; RESP 16
== END 2020-06-16 15:17 | disposition home or self-care (01) ==
LOC: EC 11:02
DX: F10.239 Alcohol dependence with withdrawal, unspecified (principal); F17.200 Nicotine dependence, unspecified, uncomplicated; F32.9 Major depressive disorder, single episode, unspecified; F41.9 Anxiety disorder, unspecified; K21.9 Gastro-esophageal reflux disease without esophagitis; Z79.899 Other long term (current) drug therapy; F12.90 Cannabis use, unspecified, uncomplicated
CPT/HCPCS: 80053; 82150; 83605; 83690; 83735; 85025; 85610; 85730; 80320; 99284; 96374; 96375; 96361; J2060; J2405; C9113

== ENCOUNTER → 2020-07-16 | Outpatient (CLI) | payer BC ==
--- NOTE | 2020-07-16 10:09 | MM ---
Reason for exam: clinical finding. Baseline mammogram. History: Patient is nulliparous. Family history of breast cancer in maternal grandmother at age 60. Took hormonal contraceptives for 1 year beginning at age 18. Physical Findings: Nurse did not find any significant physical abnormalities on exam. MG Diagnostic Mammo w CAD MINI Bilateral CC and MLO view(s) were taken. LM, spot compression CC, and spot compression MLO view(s) were taken of the right breast. The breast tissue is heterogeneously dense. This may lower the sensitivity of mammography. Benign appearing bilateral calcifications. These results were verbally communicated with the patient and result sheet given to the patient on 07/16/20. ASSESSMENT: Incomplete: need additional imaging evaluation, BI-RAD 0 RECOMMENDATION: Ultrasound of the left breast.
--- NOTE | 2020-07-16 10:10 | USB ---
Reason for exam: additional evaluation requested from abnormal screening. History: Patient is nulliparous. Family history of breast cancer in maternal grandmother at age 60. Took hormonal contraceptives for 1 year beginning at age 18. US Breast LT Left complete breast ultrasound includes all four quadrants, the retroareolar region and axilla. Finding demonstrates a 5 x 3 x 5mm oval, cystic lesion at 7 o'clock and duct ectasia at the posterior nipple. These results were verbally communicated with the patient and result sheet given to the patient on 07/16/20. ASSESSMENT: Probably benign, BI-RAD 3 RECOMMENDATION: Ultrasound of the left breast in 6 months. Manage patient on a clinical basis.
== END | disposition home or self-care (01) ==
LOC: RADMAMWWP 07:41
PROVIDERS: ATTEND Family Medicine
DX: R92.1 Mammographic calcification found on diagnostic imaging of breast (principal); N60.42 Mammary duct ectasia of left breast; N60.02 Solitary cyst of left breast; Z80.3 Family history of malignant neoplasm of breast
CPT/HCPCS: 77066

== ENCOUNTER → 2020-07-30 | Outpatient (CLI) | payer BC ==
--- NOTE | 2020-07-30 16:35 | US ---
EXAMINATION TYPE: US pelvis complete transvag DATE OF EXAM: 07/30/2020 COMPARISON: several CT's CLINICAL HISTORY: N84.1 Polyp of cervix. TECHNIQUE: Transvaginal (TV) and Transabdominal (TA) . Transabdominal sonographic images of the pel vis were acquired. Transvaginal sonographic images were medically necessary to better assess the fol lowing anatomy: cervical canal. Date of LMP: 07/13/2020 EXAM MEASUREMENTS: Uterus: 11.0 x 6.0 x 6.6 cm Endometrial Stripe: 1.7 cm which is at the upper limits of normal for a menstruating female. Right Ovary: 3.9 x 2.3 x 2.5 cm Left Ovary: 2.3 x 2.0 x 1.9 cm 1. Uterus: Anteverted Calcifications noted post uterus. 2. Endometrium: wnl at the upper limits of normal for menstruating female at 1.7 cm. 3. Right Ovary: wnl 4. Left Ovary: wnl 5. Bilateral Adnexa: wnl 6. Posterior cul-de-sac: no free fluid No definite cervical polyp seen. IMPRESSION: 1. No definite cervical polyp is seen on the sonographic study. Direct gynecologic evaluation may be helpful. 2. The endometrial stripe measures 1.7 cm, which is within the upper limits of normal for menstruatin g female. Last menstrual period date was given as 07/13/2020.
== END | disposition home or self-care (01) ==
LOC: RADUSWWP 13:00
PROVIDERS: ATTEND Family Medicine
DX: N84.1 Polyp of cervix uteri (principal)
CPT/HCPCS: 76830; 76856